=== PATIENT | female | born 1940 | race Caucasian/White ===

== ENCOUNTER 2018-01-28 17:44 | Emergency (ER) | payer MEDICARE, OTHER, SELFPAY ==
[2018-01-28 17:45] VITALS: BP 146/95; PULSE 64; RESP 16; TEMP 35.8; O2SAT 96; BMI 24.0
[2018-01-28 18:40] VITALS: BP 105/67; BP 142/73; BP 147/73; PULSE 52; PULSE 55; PULSE 66
[2018-01-28] MEDS: Carbamide Peroxide 15 ML Bottle 5 DRP OTIC (19:09)
[2018-01-28 19:14] LABS: Hematocrit 44.3 % (37-47); Hemoglobin 14.7 g/dl (12.0-15.0); Mean Corp Hgb Conc 33.2 g/gl (32-36); Mean Corpuscular Hgb 30.9 pg (27.0-32.0); Mean Corpuscular Volume 93.1 fL (81-99); Mean Platelet Vol. 11.8 fl (6.2-12.0); Platelet Count 198 K/mm3 (150-450); RBC Distribution Width CV 13.1 % (11.6-14.6); RBC Distribution Width SD 44.6 fl (35.1-43.9); Red Blood Count 4.76 M/mm3 (4.2-5.4); White Blood Count 7.8 K/mm3 (4.4-11.0)
[2018-01-28 19:15] LABS: Scan Indicated on CBC? Y/N NO
[2018-01-28 19:22] LABS: Anion Gap 4 (5-15); BUN 16 mg/dL (7-18); BUN/Creat Ratio 20.4 RATIO (10-20); Calcium,Total 10.8 mg/dL (8.5-10.1); Chloride 101 mmol/L (98-107); Creatinine, Serum 0.78 mg/dL (0.55-1.02); EST Glomerular Filtration Rate 75 mL/min (>60); Est Glom Filt Rate - Afr Amer 91 mL/min (>60); Estimated Creatinine Clearance 44.36 ml/min; Glucose 95 mg/dL (74-106); Potassium 4.2 mmol/L (3.5-5.1); Sodium Level 135 mmol/L (136-145)
[2018-01-28 19:38] VITALS: BP 153/79; PULSE 58; O2SAT 97
--- NOTE | 2018-01-28 20:47 | ED.DCSUM_ITS ---
- ER Visit Summary Date of Service: 01/28/18 Chief Complaint: Dizziness and decreased hearing History of Present Illness: The patient is a 72 F who presents with decreased hearing left greater than right and vertigo. She recently was admitted and had a significant workup including CAT scan MRI etc. which were all negative. She denies any double vision or blurred vision. She is status post cataract surgery bilateral. She denies runny nose, postnasal drainage, congestion, or ear pain. She denies sore throat or neck pain. She denies any cardiac respiratory symptoms. Does complain of nausea without vomiting diarrhea. She denies paresthesia, anesthesia medics. Denies trouble with gait. Her vertigo is not positional according the patient. Physical Examination: Vital signs remarkable blood pressure 147/73. Head is atraumatic normocephalic. Pupils are equal round and minimally reactive 30 to cataract surgery. Extraocular muscles are intact. TMs are not visualized secondary to cerumen impaction bilaterally. Nares patent with no drainage. Posterior pharynx without erythema or exudate. Uvula is midline. There is no dysphonia or dysphasia. Trachea is midline. There is no stridor with auscultation of the neck. Is no carotid bruit noted right or left. Heart is regular without murmur, gallop or rub. S1 and S2 are normal. Lungs are clear to auscultation with good movement of air bilaterally. Patient is alert and oriented ?3. Motor is 5 over 5. Sensory is intact. DTRs are symmetric with no clonus or Babinski sign. Cranial 2 through 12 are intact. Cerebellar testing is normal. Gabbi-Hallpike maneuver was negative. Hint test was negative. Eye askew test was negative. Test Results: None Emergency Department Course and Treatment: Debrox was instilled in right and left ear. Nurse attempted to irrigate without success. Cerumen was removed by me using cerumen spoon. Patient now states she can hear and when she sits up her vertigo has resolved. Treatment Plan: Symptomatic Disposition: Appropriate home-going instructions Impression: 1. Vertigo secondary to bilateral cerumen impaction 2. Decreased hearing secondary to bilateral cerumen impaction This note was generated with [employer] software. It may contain incorrect words, spelling, and punctuation that were not noted in review of the chart prior to signing ED Disposition - Plan for ED Patient: Disposition: Home or Assisted Living Chief Complaint: Dizziness Instructions: ED Cerumen Impaction, Home Care Referrals: Martine Chappell MD [Primary Care Provider] - As Needed
[2018-01-28 20:48] VITALS: BP 134/79; PULSE 55; RESP 16; O2SAT 95
== END 2018-01-28 20:55 | disposition home or self-care (01) ==
PROVIDERS: Emergency Provider Emergency Medicine; Family Provider Family Medicine; PCP Family Medicine
DX: R42 Dizziness and giddiness (principal); H61.23 Impacted cerumen, bilateral; R35.0 Frequency of micturition; R53.1 Weakness; J44.9 Chronic obstructive pulmonary disease, unspecified; E78.00 Pure hypercholesterolemia, unspecified; K58.9 Irritable bowel syndrome, unspecified; I48.0 Paroxysmal atrial fibrillation; Z87.891 Personal history of nicotine dependence; Z79.82 Long term (current) use of aspirin; Z79.899 Other long term (current) drug therapy
CPT/HCPCS: 80048; 85027; 96360; 96361; 99285; J7040; A4216

== ENCOUNTER → 2018-01-30 15:26 | Outpatient (CLI) | payer MEDICARE, OTHER, SELFPAY ==
[2018-01-30 18:35] LABS: T4 Total, Thyroxin 15.2 ug/dL (4.8-13.9); Thyroid Stim Hormone (TSH) 1.96 uIU/mL (0.358-3.74)
== END ==
PROVIDERS: Family Provider Family Medicine; PCP Family Medicine; Visit Provider Family Medicine
DX: E03.9 Hypothyroidism, unspecified (principal)
CPT/HCPCS: 36415; 84436; 84443

== ENCOUNTER 2018-06-03 04:09 | Observation (INO) | payer MEDICARE, OTHER, SELFPAY ==
[2018-06-03] VITALS (8 sets, daily range): BP systolic 119–164; BP diastolic 61–76; PULSE 52–86; RESP 16–18; TEMP 36.6–36.7; O2SAT 92–100; BMI 24.1
--- NOTE | 2018-06-03 04:09 | PCM.HP.STD ---
Problem List (1) Amaurosis fugax, right eye Status: Acute (2) TIA (transient ischemic attack) Status: Acute (3) Tachycardia-bradycardia syndrome Status: Chronic (4) Paroxysmal atrial fibrillation Status: Chronic (5) HLD (hyperlipidemia) Status: Chronic Qualifiers: Hyperlipidemia type: pure hypercholesterolemia Qualified Code(s): E78.00 - Pure hypercholesterolemia, unspecified; E78.0 - Pure hypercholesterolemia (6) HTN (hypertension) Status: Chronic Qualifiers: Hypertension type: essential hypertension Qualified Code(s): I10 - Essential (primary) hypertension History of Present Illness Date of Admission: 06/03/18 Chief Complaint: R Eye vision deficits The patient is a 77 y/o F w/ PMHx: HTN, HLD, Hypothyroidism, Tachycardic-Bradycardic Syndrome, PAF not on anticoagulation, IBS, Chronic COPD, Recent 12/2017 evaluation [facility] secondary to ongoing dizziness w/ unremarkable MRI/MRA, ECHO evaluation at that time who presents to the [facility] on 06/03/18 from OSH as direct admission/transfer with history of intermittent R lower field of vision loss, starting the morning prior and resolved upon OSH ED presentation with no other associated neurological symptoms. At the OSH ED work-up included VS: HR 59, BP 134/64, RR 18, 97% on RA, AF 36.7, CBC with WBC 8, Hgb 13.4, Plts 262 without shift, BMP w/ Na 132, BUN/Cr 21/0.85, glucose 106, SED rate 4, EKG with SR without acute evidence of ischemia, CT head with chronic changes. [facility] contacted [facility] Neurologist medical education manager and following their discussions he had requested CT head, CTA Head and Neck and follow-up MRI with administration eliquis or heparin therapy given history of PAF. The OSH ED did not have access to eliquis, therefore the patient was initiated on heparin therapy. Past Medical History Past Medical History (Chronic Problems): Chronic Problems (Last Reviewed 01/18/18 @ 10:30 by Js Noriega MD) Vasovagal syncope (Chronic) Tachycardia-bradycardia syndrome (Chronic) Paroxysmal atrial fibrillation (Chronic) HLD (hyperlipidemia) (Chronic) HTN (hypertension) (Chronic) Medical History: Medical History (Last Reviewed 01/18/18 @ 10:30 by Js Noriega MD) Vasovagal syncope (Chronic) R55 Tachycardia-bradycardia syndrome (Chronic) I49.5 Paroxysmal atrial fibrillation (Chronic) I48.0 HLD (hyperlipidemia) (Chronic) E78.5 HTN (hypertension) (Chronic) I10 COPD (chronic obstructive pulmonary disease) J44.9 IBS (irritable bowel syndrome) K58.9 Allergies ceftriaxone [From Rocephin] Adverse Reaction (Verified 01/28/18 17:47) Hives doxycycline [From Vibramycin] Adverse Reaction (Verified 01/28/18 17:47) Hives oxycodone [From OxyContin] Adverse Reaction (Verified 01/28/18 17:47) hallucinations Home Medications: Ambulatory Orders Medication Instructions Recorded alendronate 35 mg tablet 35 mg PO QWEEK 84 Days #12 tab 01/15/18 aspirin 81 mg tablet,delayed 81 mg PO QDAY 01/15/18 release calcium carbonate-vitamin D3 600 1 cap PO BID cap 01/15/18 mg calcium-200 unit capsule levothyroxine 50 mcg tablet 50 mcg PO QDAY 90 Days #90 tab 01/15/18 naproxen sodium 220 mg tablet 220 mg PO Q12H PRN 01/15/18 simvastatin 40 mg tablet 40 mg PO QDAY 90 Days #90 tab 01/15/18 sotalol 80 mg tablet 40 mg PO BID 90 Days #90 tab 01/15/18 hydrochlorothiazide 25 mg tablet 25 mg PO QDAY 90 Days #90 tab 01/18/18 polyethylene glycol 3350 17 gram 17 g PO QDAY 01/18/18 oral powder packet Albuterol Inhaler [Ventolin Hfa 2 puff INHALATION Q6H PRN PRN 06/03/18 (SP)] Surgical History: Surgical History (Last Reviewed 01/18/18 @ 10:30 by Js Noriega MD) History of appendectomy Z90.49 History of bilateral knee replacement Z96.653 History of hernia surgery Z98.890, Z87.19 Hx Sigmoidectomy Surgical History: - - Appendectomy, bilateral total knee replacement, L total hip replacement, sigmoidectomy, history of hernia surgery. 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 Smoking Status: Former smoker - Quit 5 years prior, prior to this 1 ppd since youth. Tobacco Use: Non-smoker Alcohol: None Drugs: None - *Family History Maternal Family History: Family History (Last Reviewed 01/18/18 @ 10:30 by Js Noriega MD) Mother pacemaker Daughter Arthritis Daughter CAD (coronary artery disease) Diabetes Hypertension Sister CVA (cerebral vascular accident) History Items: Dementia - Mother at age 91 w/ timers dementia, unclear onset timeline. Paternal Family History: Family History (Last Reviewed 01/18/18 @ 10:30 by Js Noriega MD) Mother pacemaker Daughter Arthritis Daughter CAD (coronary artery disease) Diabetes Hypertension Sister CVA (cerebral vascular accident) History Items: Unknown - Patient states she does not know her father's history. Review of Systems Constitutional: Reports: Fatigue. Denies: Chills, Fever, Weight Change HEENT: Reports: Visual Changes. Denies: Head Aches, Sinus Congestion, Sinus Drainage Cardiovascular: Reports: Light Headedness. Denies: Chest Pain, Chest Pressure, Chest Tightness, Orthopnea, Palpitations, Syncope Respiratory: Denies: Cough, Shortness of breath at rest, Sputum production Gastrointestinal: Denies: Abdominal Pain, Nausea, Vomiting Genitourinary: Denies: Dysuria Musculoskeletal: Denies: Joint Pain, Joint Tenderness Skin: Denies: Rash, Wounds Neurological: Reports: Blurred vision. Denies: Focal weakness, Numbness, Tingling Psychiatric: Denies: Anxiety, Depression, Homicidal Ideations, Suicidal Ideations Hematologic/ Lymphatic: Denies: Easy Bruising, Easy Bleeding VTE Information - Inpt Only VTE Present on Admission: No VTE Mechan Device Prophylaxis: SCD's VTE Pharm Prophylaxis ordered?: Yes Subjective: Seated upright in the bed, NAD, notes continued return to vision baseline. Objective: Physical Examination: General: awake, alert, oriented x 3 and cooperative, seated upright in the PCU bed in no apparent distress. Skin: normal color, turgor, no icterus, cyanosis. HEENT: AT/NC, EOMI, peripheral vision beatty intact, PERRLA, MMM, no carotid bruits or JVD noted. Lungs: CTA bilaterally, moderate effort, mild decrease BL bases, no rales, ronchi or wheezing. Heart: Regular rate and rhythm; no gallop, rub audible. Abdomen: soft, NTTP, ND, normal BS, no HSM. Extremities: no cyanosis, clubbing, or edema. Neurological: patient awake, alert, oriented x 3; cognitive function intact; pupils equally reactive to light and accomodation; cranial nerves II-XII grossly normal, moving all 4 extremities, no focal deficits, strength preserved, FTN, HTS intact, sensation intact, negative babinski, field of vision intact. Psychiatric: affect appears normal, no acute evidence of depressive or anxiety feelings. Assessment/Plan All Active Problems (Last Reviewed 01/18/18 @ 10:30 by Js Noriega MD) Amaurosis fugax, right eye (Acute) TIA (transient ischemic attack) (Acute) The patient is a 77 y/o F w/ PMHx: HTN, HLD, Hypothyroidism, Tachycardic-Bradycardic Syndrome, PAF not on anticoagulation, IBS, ? Chronic COPD, Recent 12/2017 evaluation [facility] secondary to ongoing dizziness w/ unremarkable MRI/MRA, ECHO evaluation at that time who presents to the [facility] on 06/03/18 from OSH as direct admission/transfer with history of intermittent R lower field of vision loss, resolved upon OSH ED presentation with no other associated neurological symptoms. (1) R Eye Lower Field of Vision loss, Transient, concerning for TIA/CVA: OSH ED work-up included VS: HR 59, BP 134/64, RR 18, 97% on RA, AF 36.7, CBC with WBC 8, Hgb 13.4, Plts 262 without shift, BMP w/ Na 132, BUN/Cr 21/0.85, glucose 106, SED rate 4, EKG with SR without acute evidence of ischemia, CT head with chronic changes. OSH contacted [facility] Neurologist medical education manager and following their discussions he had requested CT head, CTA Head and Neck and follow-up MRI with administration eliquis or heparin therapy given history of PAF. The OSH ED did not have access to eliquis, therefore the patient was initiated on heparin therapy. Will admit to PCU, will obtain MRI Brain, CTA Head and Neck per Neurology preference, ECHO, PT/OT/Speech/Nutrition evaluation per protocol. Will consult Neurology for evaluation. Given resolution of symptoms will continue her HTN regimen, will transition from heparin drip to eliquis, change to high dose statin w/ AM FLP, fall precautions. Mag pending. TSH pending. (2) PAF, Hx Tachycardic-Bradycardic Syndrome: Maintain on home regimen sotalol, statin, initiating eliquis regimen, discontinue heparin drip. (3) Chronic COPD w/ Former Tobacco use hx: ATC duonebs, PRN albuterol, HOB, IS parameters. (4) Hypertension: Continue home regimen including hydrochlorothiazide, PRN hydralazine. (5) Hyperlipidemia: Continue home statin regimen. AM FLP. (6) Hypothyroidism: Continue home synthroid regimen, TSH and FT4 pending. (7) DVT Prophylaxis: SCDs, heparin drip OSH-->transition to eliquis regimen. Code Visit OBSV E&M: 43842 Initial observation care L3
[2018-06-03] MEDS: 0.9% Normal Saline 1,000 ML 100 ML IV (05:11)
[2018-06-03] MEDS: 0.9% NaCl Peripheral Flush Adult/Peds IV (05:12)
[2018-06-03] MEDS: APIXABAN 5 MG TABLET PO (05:19)
[2018-06-03] MEDS: Levothyroxine 50 MCG Tablet PO (05:27)
[2018-06-03 06:10] LABS: Cholesterol 144 mg/dL (200); High Density Lipoprotein 65 mg/dL; Magnesium 1.8 mg/dL (1.6-2.6); Thyroid Stim Hormone (TSH) 1.57 uIU/mL (0.358-3.74); Triglycerides 55 mg/dL; Very Low Density Lipoprotein 11 mg/dL (5-40)
[2018-06-03 06:27] LABS: T4 Free Direct 1.35 ng/dL (0.76-1.46)
[2018-06-03] MEDS: Ipratropium/Albuterol Sulfate 3 ML AMPUL.NEB INHALATION ×2 (07:00→13:20)
[2018-06-03] MEDS: Sotalol Hydrochloride 80 MG Tablet 40 MG PO (09:15)
[2018-06-03] MEDS: Famotidine 20 MG Tablet PO (09:16)
[2018-06-03] MEDS: hydroCHLOROthiazide 25 MG Tablet PO (09:16)
[2018-06-03] MEDS: Polyethylene Glycol 3350 17 GM PACKET PO (09:16)
--- NOTE | 2018-06-03 11:22 | PCM.CONS.GEN ---
Reason for Consult Date of Consultation: 06/03/18 Reason for Consultation: vision changes History of Present Illness: The patient is a 77 year old right handed white female with history of afib, yesterday felt lightheaded/dizzy and had right eye only inferior field vision loss by description. now feels normal, eliquis started this am. Per admission H&P: The patient is a 77 y/o F w/ PMHx: HTN, HLD, Hypothyroidism, Tachycardic-Bradycardic Syndrome, PAF not on anticoagulation, IBS, Chronic COPD, Recent 12/2017 evaluation [facility] secondary to ongoing dizziness w/ unremarkable MRI/MRA, ECHO evaluation at that time who presents to the [facility] on 06/03/18 from OSH as direct admission/transfer with history of intermittent R lower field of vision loss, starting the morning prior and resolved upon OSH ED presentation with no other associated neurological symptoms. At the OSH ED work-up included VS: HR 59, BP 134/64, RR 18, 97% on RA, AF 36.7, CBC with WBC 8, Hgb 13.4, Plts 262 without shift, BMP w/ Na 132, BUN/Cr 21/0.85, glucose 106, SED rate 4, EKG with SR without acute evidence of ischemia, CT head with chronic changes. OSH contacted [facility] Neurologist cotton feeder and following their discussions he had requested CT head, CTA Head and Neck and follow-up MRI with administration eliquis or heparin therapy given history of PAF. The OSH ED did not have access to eliquis, therefore the patient was initiated on heparin therapy. Past Medical History Past Medical History (Chronic Problems): Chronic Problems (Last Reviewed 06/03/18 @ 11:23 by Deshaun Cantu MD) Vasovagal syncope (Chronic) Tachycardia-bradycardia syndrome (Chronic) Paroxysmal atrial fibrillation (Chronic) HLD (hyperlipidemia) (Chronic) HTN (hypertension) (Chronic) Medical History: Medical History (Last Reviewed 06/03/18 @ 11:55 by Deshaun Cantu MD) Vasovagal syncope (Chronic) R55 Tachycardia-bradycardia syndrome (Chronic) I49.5 Paroxysmal atrial fibrillation (Chronic) I48.0 HLD (hyperlipidemia) (Chronic) E78.5 HTN (hypertension) (Chronic) I10 COPD (chronic obstructive pulmonary disease) J44.9 IBS (irritable bowel syndrome) K58.9 Allergies ceftriaxone [From Rocephin] Adverse Reaction (Verified 01/28/18 17:47) Hives doxycycline [From Vibramycin] Adverse Reaction (Verified 01/28/18 17:47) Hives oxycodone [From OxyContin] Adverse Reaction (Verified 01/28/18 17:47) hallucinations Home Medications: Ambulatory Orders Medication Instructions Recorded alendronate 35 mg tablet 35 mg PO QWEEK 84 Days #12 tab 01/15/18 aspirin 81 mg tablet,delayed 81 mg PO QDAY 01/15/18 release calcium carbonate-vitamin D3 600 1 cap PO BID cap 01/15/18 mg calcium-200 unit capsule levothyroxine 50 mcg tablet 50 mcg PO QDAY 90 Days #90 tab 01/15/18 naproxen sodium 220 mg tablet 220 mg PO Q12H PRN 01/15/18 simvastatin 40 mg tablet 40 mg PO QDAY 90 Days #90 tab 01/15/18 sotalol 80 mg tablet 40 mg PO BID 90 Days #90 tab 01/15/18 hydrochlorothiazide 25 mg tablet 25 mg PO QDAY 90 Days #90 tab 01/18/18 polyethylene glycol 3350 17 gram 17 g PO QDAY 01/18/18 oral powder packet Albuterol Inhaler [Ventolin Hfa 2 puff INHALATION Q6H PRN PRN 06/03/18 (SP)] Surgical History: Surgical History (Last Reviewed 06/03/18 @ 11:55 by Deshaun Cantu MD) History of appendectomy Z90.49 History of bilateral knee replacement Z96.653 History of hernia surgery Z98.890, Z87.19 Hx Sigmoidectomy Surgical History: - - Appendectomy, bilateral total knee replacement, L total hip replacement, sigmoidectomy, history of hernia surgery. 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 Smoking Status: Former smoker Tobacco Use: Non-smoker Alcohol: None Drugs: None - *Family History Maternal Family History: Family History (Last Reviewed 01/18/18 @ 10:30 by Js Noriega MD) Mother pacemaker Daughter Arthritis Daughter CAD (coronary artery disease) Diabetes Hypertension Sister CVA (cerebral vascular accident) History Items: Dementia - Mother at age 91 w/ timers dementia, unclear onset timeline. Paternal Family History: Family History (Last Reviewed 01/18/18 @ 10:30 by Js Noriega MD) Mother pacemaker Daughter Arthritis Daughter CAD (coronary artery disease) Diabetes Hypertension Sister CVA (cerebral vascular accident) History Items: Unknown - Patient states she does not know her father's history. - Physical Exam General: Alert, Oriented x3, Cooperative HEENT: Atraumatic, PERRLA, EOMI, Normocephalic Neck: Supple, No JVD, Negative Carotid Bruits Lungs: Clear to auscultation, Normal air movement Cardiovascular: Regular rate, No murmurs Abdomen: Bowel Sounds Present, Soft, Non Tender Extremities: No edema, Capillary Refill Less than 3 Seconds Skin: No rashes, No breakdown Musculoskeletal: No Tenderness to Palpation of Joints or Extremities Neurological: Cranial nerves II-XII grossly intact Psych/Mental Status: Normal Affect, Appropriate Vital Signs Temp Pulse Resp BP Pulse Ox 36.7 C 59 L 16 119/61 93 06/03/18 08:20 06/03/18 11:00 06/03/18 08:20 06/03/18 08:20 06/03/18 08:20 Oxygen Delivery Method Room Air Weight: 69.9 kg Body Mass Index (BMI) 24.1 Intake and Output for Last 24 Hours 06/01/18 06/02/18 06/03/18 23:59 23:59 23:59 Intake Total 240 / 240 Balance 240 / 240 Laboratory Tests Past 24 Hrs 06/03/18 06/03/18 05:14 05:14 Magnesium 1.8 Triglycerides 55 Cholesterol 144 LDL Cholesterol 68 VLDL Cholesterol 11 HDL Cholesterol 65 TSH 1.57 Free T4 1.35 Current Medications Generic Name Dose Route Start Last Admin Trade Name Freq PRN Reason Stop Dose Admin Acetaminophen 650 mg 06/03/18 04:21 Tylenol PO Q4H PRN PRN Headache/Temp>99F Albuterol Sulfate 2.5 mg 06/03/18 04:27 Ventolin Aerosols INHALATION Q2H PRN PRN dyspnea, wheezing Albuterol/Ipratropium 3 ml 06/03/18 04:30 06/03/18 07:00 Duoneb INHALATION 3 ml Q6HWA.RT MAGDALENE Administration Apixaban 5 mg 06/03/18 04:27 06/03/18 09:14 Eliquis PO Not Given BID MAGDALENE Atorvastatin Calcium 80 mg 06/03/18 22:00 Lipitor PO QHS MAGDALENE Hydrochlorothiazide 25 mg 06/03/18 10:00 06/03/18 09:16 Hctz PO 25 mg DAILY MAGDALENE Administration Levothyroxine Sodium 50 mcg 06/03/18 06:00 06/03/18 05:27 Synthroid PO 50 mcg DAILY@0600 MAGDALENE Administration Magnesium Hydroxide 30 ml 06/03/18 04:21 Milk Of Magnesia PO DAILY PRN Constipation Ondansetron HCl 4 mg 06/03/18 04:21 Zofran IV Q8H PRN PRN NAUSEA Polyethylene Glycol 17 gm 06/03/18 10:00 06/03/18 09:16 Miralax PO 17 gm DAILY MAGDALENE Administration Sodium Chloride 5 - 30 ml 06/03/18 04:36 06/03/18 05:12 IV 10 ml UD PRN Administration SALINE FLUSH Sotalol HCl 40 mg 06/03/18 10:00 06/03/18 09:15 Betapace (G) PO 40 mg BID MAGDALENE Administration CTA of the head and neck is reviewed and appears to be normal Assessment/Plan All Active Problems (Last Reviewed 06/03/18 @ 11:23 by Deshaun Cantu MD) Amaurosis fugax, right eye (Acute) TIA (transient ischemic attack) (Acute) Impression: Vision changes: likely tia due to afib, now normal. agree with marilu, no benefit to mri, will cancel and dc home.
--- NOTE | 2018-06-03 11:26 | CON.PCM_ITS ---
Reason for Consult Date of Consultation: 06/03/18 Reason for Consultation: vision changes History of Present Illness: The patient is a 77 year old right handed white female with history of afib, yesterday felt lightheaded/dizzy and had right eye only inferior field vision loss by description. now feels normal, eliquis started this am. Per admission H&P: The patient is a 77 y/o F w/ PMHx: HTN, HLD, Hypothyroidism , Tachycardic-Bradycardic Syndrome, PAF not on anticoagulation, IBS, Chronic COPD, Recent 12/2017 evaluation [facility] secondary to ongoing dizziness w/ unremarkable MRI/MRA, ECHO evaluation at that time who presents to the [facility] on 06/03/18 from OSH as direct admission/transfer with history of intermittent R lower field of vision loss, starting the morning prior and resolved upon OSH ED presentation with no other associated neurological symptoms. At the OSH ED work- up included VS: HR 59, BP 134/64, RR 18, 97% on RA, AF 36.7, CBC with WBC 8, Hgb 13.4, Plts 262 without shift, BMP w/ Na 132, BUN/Cr 21/0.85, glucose 106, SED rate 4, EKG with SR without acute evidence of ischemia, CT head with chronic changes. 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 The OSH ED did not have access to eliquis, therefore the patient was initiated on heparin therapy. Past Medical History Past Medical History (Chronic Problems): Chronic Problems (Last Reviewed 06/03/18 @ 11:23 by Deshaun Cantu MD) Vasovagal syncope (Chronic) Tachycardia-bradycardia syndrome (Chronic) Paroxysmal atrial fibrillation (Chronic) HLD (hyperlipidemia) (Chronic) HTN (hypertension) (Chronic) Medical History: Medical History (Last Reviewed 06/03/18 @ 11:55 by Deshaun Cantu MD) Vasovagal syncope (Chronic) R55 Tachycardia-bradycardia syndrome (Chronic) I49.5 Paroxysmal atrial fibrillation (Chronic) I48.0 HLD (hyperlipidemia) (Chronic) E78.5 HTN (hypertension) (Chronic) I10 COPD (chronic obstructive pulmonary disease) J44.9 IBS (irritable bowel syndrome) K58.9 Allergies ceftriaxone [From Rocephin] Adverse Reaction (Verified 01/28/18 17:47) Hives doxycycline [From Vibramycin] Adverse Reaction (Verified 01/28/18 17:47) Hives oxycodone [From OxyContin] Adverse Reaction (Verified 01/28/18 17:47) hallucinations Home Medications: Ambulatory Orders Medication Instructions Recorded alendronate 35 mg tablet 35 mg PO QWEEK 84 Days #12 tab 01/15/18 aspirin 81 mg tablet,delayed 81 mg PO QDAY 01/15/18 release calcium carbonate-vitamin D3 600 1 cap PO BID cap 01/15/18 mg calcium-200 unit capsule levothyroxine 50 mcg tablet 50 mcg PO QDAY 90 Days #90 tab 01/15/18 naproxen sodium 220 mg tablet 220 mg PO Q12H PRN 01/15/18 simvastatin 40 mg tablet 40 mg PO QDAY 90 Days #90 tab 01/15/18 sotalol 80 mg tablet 40 mg PO BID 90 Days #90 tab 01/15/18 hydrochlorothiazide 25 mg tablet 25 mg PO QDAY 90 Days #90 tab 01/18/18 polyethylene glycol 3350 17 gram 17 g PO QDAY 01/18/18 oral powder packet Albuterol Inhaler [Ventolin Hfa 2 puff INHALATION Q6H PRN PRN 06/03/18 (SP)] Surgical History: Surgical History (Last Reviewed 06/03/18 @ 11:55 by Deshaun Cantu MD) History of appendectomy Z90.49 History of bilateral knee replacement Z96.653 History of hernia surgery Z98.890, Z87.19 Hx Sigmoidectomy Surgical History: - - Appendectomy, bilateral total knee replacement, L total hip replacement, sigmoidectomy, history of hernia surgery. 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 Smoking Status: Former smoker Tobacco Use: Non-smoker Alcohol: None Drugs: None - *Family History Maternal Family History: Family History (Last Reviewed 01/18/18 @ 10:30 by Js Noriega MD) Mother pacemaker Daughter Arthritis Daughter CAD (coronary artery disease) Diabetes Hypertension Sister CVA (cerebral vascular accident) History Items: Dementia - Mother at age 91 w/ timers dementia, unclear onset timeline. Paternal Family History: Family History (Last Reviewed 01/18/18 @ 10:30 by Js Noriega MD) Mother pacemaker Daughter Arthritis Daughter CAD (coronary artery disease) Diabetes Hypertension Sister CVA (cerebral vascular accident) History Items: Unknown - Patient states she does not know her father's history. - Physical Exam General: Alert, Oriented x3, Cooperative HEENT: Atraumatic, PERRLA, EOMI, Normocephalic Neck: Supple, No JVD, Negative Carotid Bruits Lungs: Clear to auscultation, Normal air movement Cardiovascular: Regular rate, No murmurs Abdomen: Bowel Sounds Present, Soft, Non Tender Extremities: No edema, Capillary Refill Less than 3 Seconds Skin: No rashes, No breakdown Musculoskeletal: No Tenderness to Palpation of Joints or Extremities Neurological: Cranial nerves II-XII grossly intact Psych/Mental Status: Normal Affect, Appropriate Vital Signs Temp Pulse Resp BP Pulse Ox 36.7 C 59 L 16 119/61 93 06/03/18 08:20 06/03/18 11:00 06/03/18 08:20 06/03/18 08:20 06/03/18 08:20 Oxygen Delivery Method Room Air Weight: 69.9 kg Body Mass Index (BMI) 24.1 Intake and Output for Last 24 Hours 06/01/18 06/02/18 06/03/18 23:59 23:59 23:59 Intake Total 240 / 240 Balance 240 / 240 Laboratory Tests Past 24 Hrs 06/03/18 06/03/18 05:14 05:14 Magnesium 1.8 Triglycerides 55 Cholesterol 144 LDL Cholesterol 68 VLDL Cholesterol 11 HDL Cholesterol 65 TSH 1.57 Free T4 1.35 Current Medications Generic Name Dose Route Start Last Admin Trade Name Freq PRN Reason Stop Dose Admin Acetaminophen 650 mg 06/03/18 04:21 Tylenol PO Q4H PRN PRN Headache/Temp>99F Albuterol Sulfate 2.5 mg 06/03/18 04:27 Ventolin Aerosols INHALATION Q2H PRN PRN dyspnea, wheezing Albuterol/Ipratropium 3 ml 06/03/18 04:30 06/03/18 07:00 Duoneb INHALATION 3 ml Q6HWA.RT MAGDALENE Administration Apixaban 5 mg 06/03/18 04:27 06/03/18 09:14 Eliquis PO Not Given BID MAGDALENE Atorvastatin Calcium 80 mg 06/03/18 22:00 Lipitor PO QHS MAGDALENE Hydrochlorothiazide 25 mg 06/03/18 10:00 06/03/18 09:16 Hctz PO 25 mg DAILY MAGDALENE Administration Levothyroxine Sodium 50 mcg 06/03/18 06:00 06/03/18 05:27 Synthroid PO 50 mcg DAILY@0600 MAGDALENE Administration Magnesium Hydroxide 30 ml 06/03/18 04:21 Milk Of Magnesia PO DAILY PRN Constipation Ondansetron HCl 4 mg 06/03/18 04:21 Zofran IV Q8H PRN PRN NAUSEA Polyethylene Glycol 17 gm 06/03/18 10:00 06/03/18 09:16 Miralax PO 17 gm DAILY MAGDALENE Administration Sodium Chloride 5 - 30 ml 06/03/18 04:36 06/03/18 05:12 IV 10 ml UD PRN Administration SALINE FLUSH Sotalol HCl 40 mg 06/03/18 10:00 06/03/18 09:15 Betapace (G) PO 40 mg BID MAGDALENE Administration CTA of the head and neck is reviewed and appears to be normal Assessment/Plan All Active Problems (Last Reviewed 06/03/18 @ 11:23 by Deshaun Cantu MD) Amaurosis fugax, right eye (Acute) TIA (transient ischemic attack) (Acute) Impression: Vision changes: likely tia due to afib, now normal. agree with marilu, no benefit to mri, will cancel and dc home.
--- NOTE | 2018-06-03 15:01 | PCM.DC ---
- Discharge Diagnoses Reason(s) for Visit for Discharge Instructions: TIA You will use the following diet at home:: No restrictions, Regular Your food should be the consistency of: Regular Discharge Activity: Return to Normal Activity, No Restrictions, May Drive Allergies/Adverse Reactions: Allergies ceftriaxone [From Rocephin] Adverse Reaction (Verified 01/28/18 17:47) Hives doxycycline [From Vibramycin] Adverse Reaction (Verified 01/28/18 17:47) Hives oxycodone [From OxyContin] Adverse Reaction (Verified 01/28/18 17:47) hallucinations Medications to take at Discharge alendronate 35 mg tablet 35 mg PO QWEEK 84 Days #12 tab 01/15/18 calcium carbonate-vitamin D3 600 mg calcium-200 unit capsule 1 cap PO BID cap 01/15/18 levothyroxine 50 mcg tablet 50 mcg PO QDAY 90 Days #90 tab 01/15/18 simvastatin 40 mg tablet 40 mg PO QDAY 90 Days #90 tab 01/15/18 sotalol 80 mg tablet 40 mg PO BID 90 Days #90 tab 01/15/18 hydrochlorothiazide 25 mg tablet 25 mg PO QDAY 90 Days #90 tab 01/18/18 polyethylene glycol 3350 17 gram oral powder packet 17 g PO QDAY 01/18/18 Albuterol Inhaler [Ventolin Hfa] 2 puff INHALATION Q6H PRN PRN 06/03/18 Apixaban [Eliquis] 5 mg PO BID #60 tab 06/03/18 The following prescriptions were given: Apixaban [Eliquis] 5 mg PO BID #60 tab Primary Care Physician: Martine Chappell MD [Primary Care Provider] - Please follow up with your Primary Care Physician in: 1-2 weeks Test Results: Test results from this visit will be discussed in further detail at your follow-up appointment, if applicable. Proposed Discharge Date: 06/03/18
--- NOTE | 2018-06-03 15:03 | PCM.DC.SUM ---
Discharge Date and Diagnosis Date of Admission: 06/03/18 Date of Discharge: 06/03/18 - Primary Discharge Diagnosis Transient Ischemic Attack - Secondary Discharge Diagnosis Chronic Problems (Last Reviewed 06/03/18 @ 11:55 by Deshaun Cantu MD) Vasovagal syncope (Chronic) Tachycardia-bradycardia syndrome (Chronic) Paroxysmal atrial fibrillation (Chronic) HLD (hyperlipidemia) (Chronic) HTN (hypertension) (Chronic) Hospital Course and Treatment Operations: None Procedures: None Summary of Care Provided: The patient is a 77 year old F who presented to the hospital with sudden episode of transient vision loss in the right lower visual field of her right eye. Uncertain if this was Amaurosis Fugax or a right sided homonymous quadrantanopia. Nonetheless both presentations quite suggestive of a TIA and patient does indeed have risk factors. CTA of the head and neck were done and essentially normal. MRI initially ordered but then canceled by neurology. Patient has a h/o paroxysmal atrial fibrillation and is s/p radio-ablation and is on anti-arrhythmic therapy with Sotalol for rhythm control. It was suspected/presumed that TIA may be related to a cardiac source from this and so patient started on Eliquis and will continue on this going home. Patient is doing well today and is completely asymptomatic. [] Discharge Diet: No Restrictions Discharge Activity: Return to Normal Activity, No Restrictions, May Drive Home Medications: Medications to take at Discharge alendronate 35 mg tablet 35 mg PO QWEEK 84 Days #12 tab 01/15/18 calcium carbonate-vitamin D3 600 mg calcium-200 unit capsule 1 cap PO BID cap 01/15/18 levothyroxine 50 mcg tablet 50 mcg PO QDAY 90 Days #90 tab 01/15/18 simvastatin 40 mg tablet 40 mg PO QDAY 90 Days #90 tab 01/15/18 sotalol 80 mg tablet 40 mg PO BID 90 Days #90 tab 01/15/18 hydrochlorothiazide 25 mg tablet 25 mg PO QDAY 90 Days #90 tab 01/18/18 polyethylene glycol 3350 17 gram oral powder packet 17 g PO QDAY 01/18/18 Albuterol Inhaler [Ventolin Hfa] 2 puff INHALATION Q6H PRN PRN 06/03/18 Apixaban [Eliquis] 5 mg PO BID #60 tab 06/03/18 Following Prescrptions Were Given to Patient: Apixaban [Eliquis] 5 mg PO BID #60 tab Primary Care Physician: Martine Chappell MD [Primary Care Provider] - Please follow up with your Primary Care Physician in: 1-2 weeks Disposition: Home Minutes spent on discharge:: 30 Patient Condition:: Good Medical Necessity - Tobacco Use Smoking Status: Former smoker Tobacco Use: Non-smoker Meaningful Use Info Meaningful Use Diagnoses (Choose all that apply): None applicable - CVA Therapy Assessed for PT,OT and/or ST?: Yes - Ischemic Stroke Antithrombotic order at d/c?: Yes Dx of Atrial fib/flutter?: Yes Anticoagulant at discharge?: Yes Statins at discharge?: Yes Primary Dx Acute Ischemic CVA?: No IV tPA ordered during stay?: No Reason IV t-PA not ordered: Procedure not Indicated Code Visit OBSV E&M: 66966 Observation care discharge
== END 2018-06-03 15:02 | disposition home or self-care (01) ==
PROVIDERS: Admitting Provider Family Medicine; Family Provider Family Medicine; PCP Family Medicine; Visit Provider Internal Medicine
DX: G45.9 Transient cerebral ischemic attack, unspecified (principal); E78.5 Hyperlipidemia, unspecified; I10 Essential (primary) hypertension; I48.0 Paroxysmal atrial fibrillation; Z79.899 Other long term (current) drug therapy; Z79.82 Long term (current) use of aspirin; Z87.891 Personal history of nicotine dependence; E03.9 Hypothyroidism, unspecified; K58.9 Irritable bowel syndrome, unspecified; J44.9 Chronic obstructive pulmonary disease, unspecified; H54.61 Unqualified visual loss, right eye, normal vision left eye
CPT/HCPCS: 36415; 70496; 70498; 80061; 83735; 84439; 84443; 94640; 96360; 96361; 97161; 97166; 97802; 99218; J7030; Q9967; A4216; G0378; G0379

== ENCOUNTER 2018-07-05 19:51 | Observation (INO) | payer MEDICARE, OTHER, SELFPAY ==
[2018-07-05 19:57] VITALS: BMI 24.2
[2018-07-05 20:01] VITALS: BP 147/80; PULSE 61; RESP 16; TEMP 36.9; O2SAT 93
[2018-07-05 20:03] VITALS: BMI 24.3
[2018-07-05 20:16] VITALS: PULSE 65
--- NOTE | 2018-07-05 20:30 | HP.PCM_ITS ---
Problem List (1) Vertigo Status: Acute (2) Gastroenteritis Status: Acute (3) Paroxysmal atrial fibrillation Status: Chronic (4) HTN (hypertension) Status: Chronic Qualifiers: Hypertension type: essential hypertension Qualified Code(s): I10 - Essential (primary) hypertension History of Present Illness Date of Admission: 07/05/18 Chief Complaint: vertigo and lightheadness The patient is a 77 year old F with a significant history of HTN, HLD, Hypothyroidism, Tachycardic-Bradycardic Syndrome, PAF on sotalol and Eliquis, IBS, COPD; Vertigo who presents with progressively worsening vertigo x 1 day. Patient reported that earlier in the day she felt lightheaded. As the day progressed patient began to have severe vertigo, nausea, vomiting and diarrhea. At emergency department at [facility] he was found to be vomiting. Because symptoms was progressively worsened she went to [place] emergency department and was admitted at our hospital. Patient thinks that when she turns her head her vertigo increases. She denied any hearing loss. At emergency department at [place] patient received Zofran and meclizine. Patient was last admitted and discharged at the hospital on 06/03/2018 for TIA and was subsequently started on Eliquis. Past Medical History Past Medical History (Chronic Problems): Chronic Problems (Last Reviewed 07/06/18 @ 02:29 by Antonino Pabon MD) Vasovagal syncope (Chronic) Tachycardia-bradycardia syndrome (Chronic) Paroxysmal atrial fibrillation (Chronic) HLD (hyperlipidemia) (Chronic) HTN (hypertension) (Chronic) Medical History: Medical History (Last Reviewed 07/06/18 @ 02:38 by Antonino Pabon MD) Vasovagal syncope (Chronic) R55 Tachycardia-bradycardia syndrome (Chronic) I49.5 Paroxysmal atrial fibrillation (Chronic) I48.0 HLD (hyperlipidemia) (Chronic) E78.5 HTN (hypertension) (Chronic) I10 COPD (chronic obstructive pulmonary disease) J44.9 IBS (irritable bowel syndrome) K58.9 Allergies ceftriaxone [From Rocephin] Adverse Reaction (Verified 01/28/18 17:47) Hives doxycycline [From Vibramycin] Adverse Reaction (Verified 01/28/18 17:47) Hives oxycodone [From OxyContin] Adverse Reaction (Verified 01/28/18 17:47) hallucinations Home Medications: Ambulatory Orders Medication Instructions Recorded alendronate 35 mg tablet 35 mg PO SA 84 Days #12 tab 01/15/18 calcium carbonate-vitamin D3 600 1 cap PO BID cap 01/15/18 mg calcium-200 unit capsule levothyroxine 50 mcg tablet 50 mcg PO QDAY 90 Days #90 tab 01/15/18 simvastatin 40 mg tablet 40 mg PO QDAY 90 Days #90 tab 01/15/18 hydrochlorothiazide 25 mg tablet 25 mg PO QDAY 90 Days #90 tab 01/18/18 polyethylene glycol 3350 17 gram 17 g PO QDAY 01/18/18 oral powder packet Albuterol Inhaler [Ventolin Hfa] 2 puff INHALATION Q6H PRN PRN 06/03/18 Acetaminophen [Tylenol Extra 1,000 mg PO Q8H PRN PRN 07/05/18 Strength] Apixaban [Eliquis] 5 mg PO BID 07/05/18 Sotalol Hydrochloride [Betapace 40 mg PO BID 07/05/18 (Beta Alyssia)] Surgical History: Surgical History (Last Reviewed 07/06/18 @ 02:38 by Antonino Pabon MD) History of appendectomy Z90.49 History of bilateral knee replacement Z96.653 History of hernia surgery Z98.890, Z87.19 Hx Sigmoidectomy Surgical History: - - Appendectomy, bilateral total knee replacement, L total hip replacement, sigmoidectomy, history of hernia surgery. 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 Paternal Family History: Family History (Last Reviewed 07/06/18 @ 02:29 by Antonino Pabon MD) Mother pacemaker Daughter Arthritis Daughter CAD (coronary artery disease) Diabetes Hypertension Sister CVA (cerebral vascular accident) History Items: Unknown - Patient states she does not know her father's history. Review of Systems Constitutional: Denies: Chills, Fever, Weight Change HEENT: Denies: Head Aches, Sinus Congestion, Sinus Drainage Cardiovascular: Reports: Light Headedness. Denies: Chest Pain, Palpitations Respiratory: Denies: Cough, Shortness of breath at rest, Sputum production Gastrointestinal: Reports: Diarrhea, Nausea, Vomiting. Denies: Abdominal Pain Genitourinary: Denies: Dysuria Musculoskeletal: Denies: Joint Pain, Joint Tenderness Skin: Denies: Rash, Wounds Neurological: Denies: Numbness, Tingling, Focal weakness Psychiatric: Denies: Anxiety, Depression, Homicidal Ideations, Suicidal Ideations Hematologic/ Lymphatic: Denies: Easy Bruising, Easy Bleeding VTE Information - Inpt Only VTE Present on Admission: No VTE Mechan Device Prophylaxis: None VTE Pharm Prophylaxis ordered?: No Reason prophylaxis not ordered:: Treatment Not Indicated - Patient already on Eliquis for A. fib which was continued. Patient Problems: Active and Suspected Problems (Last Reviewed 07/06/18 @ 02:29 by Antonino Pabon MD) Vertigo (Acute) Gastroenteritis (Acute) - Physical Exam General: Alert, Oriented x3, Cooperative HEENT: Atraumatic, PERRLA, EOMI, Normocephalic Neck: Supple, No JVD, Negative Carotid Bruits Lungs: Clear to auscultation, Normal air movement Cardiovascular: Regular rate, No murmurs Abdomen: Bowel Sounds Present, Soft, Non Tender Extremities: No edema, Capillary Refill Less than 3 Seconds Skin: No rashes, No breakdown Musculoskeletal: No Tenderness to Palpation of Joints or Extremities Neurological: Cranial nerves II-XII grossly intact, - - Sunset-Hallpike maneuver did not show nystagmus but patient reported spinning sensation. Psych/Mental Status: Normal Affect, Appropriate Vital Signs Temp Pulse Resp BP Pulse Ox 98.4 F 61 16 147/80 H 93 07/05/18 20:01 07/05/18 20:01 07/05/18 20:01 07/05/18 20:01 07/05/18 20:01 Oxygen Delivery Method Room Air Weight: 71.3 kg Body Mass Index (BMI) 24.2 Assessment/Plan All Active Problems (Last Reviewed 07/06/18 @ 02:29 by Antonino Pabon MD) Amaurosis fugax, right eye (Acute) TIA (transient ischemic attack) (Acute) Vertigo (Acute) Gastroenteritis (Acute) The patient is a 77 year old F with a significant history of HTN, HLD, Hypothyroidism, Tachycardic-Bradycardic Syndrome, PAF on sotalol and Eliquis, IBS, COPD; Vertigo who presents with progressively worsening vertigo; nausea, vomiting; diarrhea; lightheadedness X 1 day. Vertigo Review of old records shows that on 01/28/18 of this year patient was seen at the emergency department for Vertigo. 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 Also review of old records showed that in December 2017 patient had evaluation at [facility] for ongoing dizziness with unremarkable MRI/MRA and echocardiogram. Review of records from [facility] on the day of evaluation showed Review of records from [place] ED on the day of admission showed no evidence of acute intracranial process per CT imaging. NIH at [facility] was 0. [facility] reportedly patient had some nystagmus and extraocular movements. Differential diagnosis include BPPV; vestibular neuritis Scheduled meclizine and as needed Valium ordered. Stefan maneuver and vestibular exercises per PT. Since patient had ongoing vertigo upon discharge recommend patient's sees a PCP for possible referral to ENT. Gastroenteritis Nausea, vomiting and diarrhea. This could be causing vestibular neuritis. Likely viral in etiology. C. difficile ordered. Supportive treatment with IV normal saline, and as needed Zofran. Hyperlipidemia Lipitor continued Hypertension Fairly controlled on admission Hydrochlorothiazide continued. A. fib with history of TIA Sotalol and Eliquis continued. COPD As needed albuterol continued. Hypothyroidism Synthroid continued Osteoarthritis Reports arthritis of her neck. Home Tylenol continued. Hypokalemia Mild Potassium replaced. DVT prophylaxis Not indicated patient already on Eliquis. Code Visit OBSV E&M: 82439 Initial observation care L3
[2018-07-05 21:59] LABS: Hematocrit 39.5 % (37-47); Hemoglobin 13.5 g/dl (12.0-15.0); Mean Corp Hgb Conc 34.2 g/gl (32-36); Mean Corpuscular Hgb 32.1 pg (27.0-32.0); Mean Platelet Vol. 9.9 fl (6.2-12.0); Platelet Count 225 K/mm3 (150-450); RBC Distribution Width CV 13.2 % (11.6-14.6); RBC Distribution Width SD 45.3 fl (35.1-43.9); Scan Indicated on CBC? Y/N NO; White Blood Count 9.9 K/mm3 (4.4-11.0)
[2018-07-05 22:14] LABS: ALB/GLOB Ratio 1.2 RATIO (0.9-2.4); AST(SGOT) 22 U/L (15-37); Alanine Aminotransfer ALT/SGPT 27 U/L (13-56); Albumin, Serum 3.5 g/dL (3.2-5.0); Alkaline Phosphatase 47 U/L (45-117); Anion Gap 8 (5-15); BUN 9 mg/dL (7-18); BUN/Creat Ratio 16.3 RATIO (10-20); Calcium,Total 9.7 mg/dL (8.5-10.1); Chloride 101 mmol/L (98-107); Creatinine, Serum 0.55 mg/dL (0.55-1.02); EST Glomerular Filtration Rate 113 mL/min (>60); Est Glom Filt Rate - Afr Amer 136 mL/min (>60); Estimated Creatinine Clearance 44.36 ml/min; Globulin 2.8 g/dL (2.2-4.2); Glucose 110 mg/dL (74-106); Potassium 3.4 mmol/L (3.5-5.1); Protein, Total 6.3 g/dL (6.4-8.2); Sodium Level 136 mmol/L (136-145)
[2018-07-05] MEDS: 0.9% Normal Saline 1,000 ML 100 ML IV (22:39)
[2018-07-05] MEDS: Acetaminophen 500 MG Tablet 1000 MG PO (22:39)
[2018-07-05] MEDS: 0.9% NaCl Peripheral Flush Adult/Peds IV (22:39)
[2018-07-05] MEDS: Atorvastatin Calcium 20 MG Tablet PO (22:39)
[2018-07-05] MEDS: Sotalol Hydrochloride 80 MG Tablet 40 MG PO (22:39)
[2018-07-05] MEDS: APIXABAN 5 MG TABLET PO (22:40)
[2018-07-05] MEDS: Meclizine 12.5 MG Tablet PO (22:40)
[2018-07-05] MEDS: Mag Hydrox/Al Hydrox/Simeth 30 ML UDC 15 ML PO (22:51)
[2018-07-05 22:52] VITALS: BP 106/61; PULSE 78; RESP 16; TEMP 36.6; O2SAT 96
[2018-07-05 23:05] VITALS: PULSE 96
[2018-07-05 23:42] VITALS: O2SAT 96
[2018-07-06] VITALS (7 sets, daily range): BP systolic 116–134; BP diastolic 65–68; PULSE 61–80; RESP 15–16; TEMP 36.1–36.7; O2SAT 94–97
[2018-07-06] MEDS: Levothyroxine 50 MCG Tablet PO (05:38)
[2018-07-06] MEDS: Meclizine 12.5 MG Tablet PO (05:38)
[2018-07-06 06:20] LABS: Anion Gap 7 (5-15); BUN 12 mg/dL (7-18); BUN/Creat Ratio 18.3 RATIO (10-20); Calcium,Total 9.9 mg/dL (8.5-10.1); Chloride 104 mmol/L (98-107); Creatinine, Serum 0.66 mg/dL (0.55-1.02); EST Glomerular Filtration Rate 92 mL/min (>60); Est Glom Filt Rate - Afr Amer 112 mL/min (>60); Estimated Creatinine Clearance 44.36 ml/min; Glucose 81 mg/dL (74-106); Potassium 4.1 mmol/L (3.5-5.1); Sodium Level 139 mmol/L (136-145)
[2018-07-06] MEDS: Calcium Carb/Vitamin D 1 TABLET Tablet PO (10:16)
[2018-07-06] MEDS: hydroCHLOROthiazide 25 MG Tablet PO (10:16)
[2018-07-06] MEDS: Sotalol Hydrochloride 80 MG Tablet 40 MG PO (10:16)
[2018-07-06] MEDS: APIXABAN 5 MG TABLET PO (10:16)
--- NOTE | 2018-07-06 11:39 | CASEMGMT ---
Per Rayshawn JAMES, pt to be sent home on vestibular outpt therapy. Pt lives in [place] and would prefer to go to [facility] for this. Call to [place] to verify that they provide outpt vestibular therapy and per Breann, they do but they will not be able to see pt till the week after next. Rayshawn JAMES aware and states that he would prefer pt be seen prior to that but that ultimately, it's up to pt. Pt is aware of recommendation but states that she would prefer to go to [place] instead of [facility] at this time because '[place] is only 2 minutes from my house'. Order faxed to [place] at this time [phone] and original to pt with discharge instructions. Pt voices no further concerns/needs at this time. Awaiting disposition. Sacha PELLETIER CM
--- NOTE | 2018-07-06 11:54 | DCINST_ITS ---
- Discharge Diagnoses Current Active Problems: Current Active and Chronic Problems (Last Reviewed 07/06/18 @ 02:38 by Antonino Pabon MD) Vertigo (Acute) Gastroenteritis (Acute) You will use the following diet at home:: Cardiac, Other - BRAT diet, advance slowly to cardiac diet. Your food should be the consistency of: Regular Your liquids should be the consistency of: Regular/Thin Discharge Activity: Return to Normal Activity Allergies/Adverse Reactions: Allergies ceftriaxone [From Rocephin] Adverse Reaction (Verified 01/28/18 17:47) Hives doxycycline [From Vibramycin] Adverse Reaction (Verified 01/28/18 17:47) Hives oxycodone [From OxyContin] Adverse Reaction (Verified 01/28/18 17:47) hallucinations Medications to take at Discharge alendronate 35 mg tablet 35 mg PO SA 84 Days #12 tab 01/15/18 calcium carbonate-vitamin D3 600 mg calcium-200 unit capsule 1 cap PO BID cap 01/15/18 levothyroxine 50 mcg tablet 50 mcg PO QDAY 90 Days #90 tab 01/15/18 simvastatin 40 mg tablet 40 mg PO QDAY 90 Days #90 tab 01/15/18 hydrochlorothiazide 25 mg tablet 25 mg PO QDAY 90 Days #90 tab 01/18/18 polyethylene glycol 3350 17 gram oral powder packet 17 g PO QDAY 01/18/18 Albuterol Inhaler [Ventolin Hfa] 2 puff INHALATION Q6H PRN PRN 06/03/18 Acetaminophen [Tylenol] 1,000 mg PO Q8H PRN PRN 07/05/18 Apixaban [Eliquis] 5 mg PO BID 07/05/18 Sotalol Hydrochloride [Betapace (Beta Alyssia)] 40 mg PO BID 07/05/18 Meclizine HCl [Antivert] 12.5 mg PO TID #21 tab 07/06/18 The following prescriptions were given: Meclizine HCl [Antivert] 12.5 mg PO TID #21 tab Primary Care Physician: Martine Chappell MD [Primary Care Provider] - Please follow up with your Primary Care Physician in: 1-2 weeks Test Results: Test results from this visit will be discussed in further detail at your follow- up appointment, if applicable. Proposed Discharge Date: 07/06/18
--- NOTE | 2018-07-06 13:55 | DS.PCM_ITS ---
<Tao Alaniz - Last Filed: 07/06/18 13:51> Discharge Date and Diagnosis Date of Admission: 07/05/18 Date of Discharge: 07/06/18 - Primary Discharge Diagnosis Active and Suspected Problems (Last Reviewed 07/06/18 @ 02:38 by Antonino Pabon MD) Vertigo (Acute) secondary to dehydration secondary to acute viral gastroenteritis Hypokalemia secondary to vomiting and diarrhea History of TIA Paroxysmal atrial fibrillation Hypertension History of tachybradycardia syndrome Hyperlipidemia - Secondary Discharge Diagnosis Chronic Problems (Last Reviewed 07/06/18 @ 02:38 by Antonino Pabon MD) Vasovagal syncope (Chronic) Tachycardia-bradycardia syndrome (Chronic) Paroxysmal atrial fibrillation (Chronic) HLD (hyperlipidemia) (Chronic) HTN (hypertension) (Chronic) Hospital Course and Treatment Operations: None Procedures: None Summary of Care Provided: Physical exam on day of discharge: General: Resting comfortably NAD Psych: A/Ox3 normal affect HEENT: PEARR[place] AT NC, negative [place]-Hallpike maneuver Neck: Supple NT CV: RRR no m/t/r/g/h Resp: CTA Abd: [id number] Soft NT no guarding or rigidity Ext: DP2+= no edema Skin: W/D normal turgor Lymph/Heme: No active bleeding or adenopathy Neuro: CN2-12 intact Hospital course: The patient is a 77 year old F with a history of TIA about 1 month ago, paroxysmal atrial fibrillation, chronic vertigo, hypertension, hyperlipidemia, tachybradycardia syndrome who presented to the emergency room with worsening of vertigo for 1 day. She had started to have nausea vomiting and diarrhea and her vertigo had become severely worse described as the room spinning present at rest lying down and worse with sitting up. She had recently been diagnosed with a TIA about a month ago and at that point had been started on Eliquis which she has been compliant with. She had no complaints of focal weakness or slurred speech. She had low potassium and normal renal function. She was treated with IV fluids, meclizine, Valium, potassium replacement and admitted to the PCU. She had no events on telemetry overnight. The following day her symptoms had significantly improved. She worked with PT and OT and did well. She was felt to have had worsening of chronic vertigo secondary to acute viral gastroenteritis. She was given a prescription for as needed meclizine. It is felt that vestibular therapy was not likely necessary at this point and that she was advised to follow-up with her PCP in 1-2 weeks. She was discharged home in stable condition. This patient was seen by Tao Alaniz PA-C under the supervision of Doctor Bindu. [] Discharge Diet: Low fat/ Low Cholesterol, 2000 mg Sodium Diet Discharge Activity: Return to Normal Activity Home Medications: Medications to take at Discharge alendronate 35 mg tablet 35 mg PO SA 84 Days #12 tab 01/15/18 calcium carbonate-vitamin D3 600 mg calcium-200 unit capsule 1 cap PO BID cap 01/15/18 levothyroxine 50 mcg tablet 50 mcg PO QDAY 90 Days #90 tab 01/15/18 simvastatin 40 mg tablet 40 mg PO QDAY 90 Days #90 tab 01/15/18 hydrochlorothiazide 25 mg tablet 25 mg PO QDAY 90 Days #90 tab 01/18/18 polyethylene glycol 3350 17 gram oral powder packet 17 g PO QDAY 01/18/18 Albuterol Inhaler [Ventolin Hfa] 2 puff INHALATION Q6H PRN PRN 06/03/18 Acetaminophen [Tylenol] 1,000 mg PO Q8H PRN PRN 07/05/18 Apixaban [Eliquis] 5 mg PO BID 07/05/18 Sotalol Hydrochloride [Betapace (Beta Alyssia)] 40 mg PO BID 07/05/18 Meclizine HCl [Antivert] 12.5 mg PO TID #21 tab 07/06/18 Following Prescrptions Were Given to Patient: Meclizine HCl [Antivert] 12.5 mg PO TID #21 tab Primary Care Physician: Martine Chappell MD [Primary Care Provider] - Please follow up with your Primary Care Physician in: 1-2 weeks Disposition: Home Minutes spent on discharge:: 40 Patient Condition:: Stable Medical Necessity - Tobacco Use Smoking Status: Former smoker Meaningful Use Info Meaningful Use Diagnoses (Choose all that apply): None applicable <Wyatt Ruano - Last Filed: 07/06/18 15:14> Discharge Date and Diagnosis - Secondary Discharge Diagnosis Chronic Problems (Last Reviewed 07/06/18 @ 02:38 by Antonino Pabon MD) Vasovagal syncope (Chronic) Tachycardia-bradycardia syndrome (Chronic) Paroxysmal atrial fibrillation (Chronic) HLD (hyperlipidemia) (Chronic) HTN (hypertension) (Chronic) Hospital Course and Treatment Summary of Care Provided: The patient is a 77 year old F [] Code Visit Addendum: Dr. Ruano I personally examined the patient and reviewed the chart. I agree with the above. Doris is a 77-year-old female with a history of TIA and A. fib presenting with vertigo. He stated that yesterday afternoon she had significant nausea and vomiting prior to the episode of dizziness. When she developed the dizziness she also then developed diarrhea and did not eat very well yesterday. Did not communicate with her PCP during this episode. She was admitted overnight with intractable vertigo. Morning on exam her vertigo had resolved and I performed a modified [place]-Hallpike that did not demonstrate any BPPV. She was hydrated with IV fluids for her likely viral gastroenteritis and since her nausea, vomiting and dizziness had resolved, recommended discharge home with close PCP follow-up. OBSV E&M: 37057 Observation care discharge
== END 2018-07-06 11:53 | disposition home or self-care (01) ==
PROVIDERS: Hospitalist; Family Provider Family Medicine; PCP Family Medicine; Visit Provider Family Medicine
DX: E86.0 Dehydration (principal); A08.4 Viral intestinal infection, unspecified; E87.6 Hypokalemia; Z86.73 Personal history of transient ischemic attack (TIA), and cerebral infarction without residual deficits; I48.0 Paroxysmal atrial fibrillation; E78.5 Hyperlipidemia, unspecified; I10 Essential (primary) hypertension; Z79.899 Other long term (current) drug therapy; Z79.01 Long term (current) use of anticoagulants; Z87.891 Personal history of nicotine dependence; E03.9 Hypothyroidism, unspecified; K58.9 Irritable bowel syndrome, unspecified; J44.9 Chronic obstructive pulmonary disease, unspecified; I49.5 Sick sinus syndrome
CPT/HCPCS: 36415; 80048; 80053; 85027; 87493; 97162; 97165; 99218; J7030; A4216; G0378; G0379

== ENCOUNTER → 2018-10-16 09:50 | Outpatient (CLI) | payer MEDICARE, OTHER, SELFPAY ==
--- NOTE | 2018-10-16 09:55 | ART_ITS ---
Reason For Study: Intermittant claudication Procedure A bilateral lower extremity continuous wave Doppler with analog waveform analysis,segmental pressures,and ankle brachial indexes without exercise. Left Segmental Pressures Left brachial= 151mmHg. Left posterior tibial artery = 169mmHg. Left dorsalis pedis artery = 170mmHg. The left dorsalis pedis waveforms are triphasic. The left posterior tibial artery waveforms are triphasic. Right Segmental Pressures Right brachial= 152mmHg. Right posterior tibial artery = 159mmHg. Right dorsalis pedis artery = 0178mmHg. The right dorsalis pedis waveforms are triphasic. The right posterior tibial artery waveforms are triphasic. Indices The right ankle brachial index by the dorsalis pedis is 1.2. The right ankle brachial index by the posterior tibial artery is 1.1. The left ankle brachial index by the dorsalis pedis is 1.1. The left ankle brachial index by the posterior tibial artery is 1.1. Interpretation Summary Triphasic waveforms are noted at ankle level bilaterally. Resting ankle-brachial indices appear bilaterally normal. There is no evidence of significant arterial occlusive disease. Ordering Physician: Martine Chappell Referring Physician: Martine Chappell Performed By: Anastasia Salcedo [facility]
== END ==
PROVIDERS: Family Provider Family Medicine; PCP Family Medicine; Referring Provider Family Medicine; Visit Provider Family Medicine
DX: I73.9 Peripheral vascular disease, unspecified (principal)
CPT/HCPCS: 93923

== ENCOUNTER → 2019-01-28 | Outpatient (CLI) | payer MEDICARE, OTHER, SELFPAY ==
[2018-12-12 11:35] VITALS: BMI 24.8
--- NOTE | 2019-01-28 15:05 | BI_ITS ---
MAMMOGRAPHY - BILATERAL SCREENING REASON FOR EXAM: Female, 78 years old. Routine annual screening examination. PERTINENT HISTORY: Sister with breast cancer. TECHNIQUE: Digital bilateral breast jessie (3D mammographic acquisition) in the CC and MLO projections. 2-D mediolateral oblique (MLO) and craniocaudad (CC) views of both breasts were obtained. CAD: Full Field Digital Mammography with Computer Added Detection was performed. COMPARISON: Comparison is made with prior study dated January 19, 2016 and January 16, 2015. FINDINGS: Breast Composition: There are scattered areas of fibroglandular density. There are no dominant masses or suspicious calcifications. Stable 3 mm well-defined nodule in the deep slightly upper medial aspect of the left breast. Prior ultrasound demonstrated this to be a small cyst. No other significant abnormalities are identified. There has been no significant change since the prior study. BI/SCREENING MAMM (CAD), BILAT IMPRESSION: Stable bilateral screening mammogram. Yearly follow-up mammogram recommended. (A) ASSESSMENT CATEGORY: BIRADS Category 2: Benign. A letter regarding these results will be sent to the patient by the facility within 30 days. Approximately 10% of breast cancers are not detected by mammography. A normal mammogram should not delay biopsy of a clinically suspicious abnormality. [id number] Electronically Signed: Derrick Burnette, at 9:23 EDT , Service support ,
== END | disposition home or self-care (01) ==
LOC: OPBI 15:04
PROVIDERS: Family Provider Family Medicine; PCP Family Medicine; Referring Provider Nurse Practitioner Family; Visit Provider Nurse Practitioner Family
DX: Z12.31 Encounter for screening mammogram for malignant neoplasm of breast (principal)
CPT/HCPCS: 77063; 77067

== ENCOUNTER → 2019-05-07 | Outpatient (CLI) | payer MEDICARE, OTHER, SELFPAY ==
[2019-03-27 08:23] VITALS: BMI 25.2
[2019-05-07 17:31] LABS: Absolute Lymphocyte Count 1.48 X10^3/uL (0.83-4.51); Absolute Neutrophil Count 6.2 X10^3/uL (2.0-7.7); Basophil# 0.07 X10^3/uL; Basophil% 0.8 % (0-1); Eosinophil# 0.18 X10^3/uL; Eosinophils% 2.1 % (0-5); Hematocrit 42.2 % (37-47); Hemoglobin 14.5 g/dL (12.0-15.0); Lymphocyte # 1.48 X10^3/ul (4.0); Lymphocyte % 16.9 % (19-41); Mean Corp Hgb Conc 34.4 g/dL (32-36); Mean Corpuscular Hgb 32.2 pg (27.0-32.0); Mean Corpuscular Volume 93.8 fL (81-99); Mean Platelet Vol. 10.2 fl (6.2-12.0); Monocyte# 0.76 X10^3/uL; Monocyte% 8.7 % (0-10); NRBC Flagged by Analyzer 0 % (0-5); Neutrophil # 6.23 X10^3/uL (2.7-7.7); Platelet Count 296 K/mm3 (150-450); RBC Distribution Width SD 44.5 fl (35.1-43.9); White Blood Count 8.8 K/mm3 (4.4-11.0)
[2019-05-07 19:02] LABS: ALB/GLOB Ratio 1.2 RATIO (0.9-2.4); AST(SGOT) 25 U/L (15-37); Alanine Aminotransfer ALT/SGPT 33 U/L (13-56); Albumin, Serum 3.6 g/dL (3.2-5.0); Alkaline Phosphatase 77 U/L (45-117); Anion Gap 9 (5-15); BUN 10 mg/dL (7-18); BUN/Creat Ratio 13.9 RATIO (10-20); Calcium,Total 10.2 mg/dL (8.5-10.1); Chloride 90 mmol/L (98-107); Creatinine, Serum 0.72 mg/dL (0.55-1.02); EST Glomerular Filtration Rate 83 mL/min (>60); Est Glom Filt Rate - Afr Amer 101 mL/min (>60); Glucose 118 mg/dL (74-106); Potassium 3.7 mmol/L (3.5-5.1); Protein, Total 6.6 g/dL (6.4-8.2); Sodium Level 129 mmol/L (136-145); T4 Total, Thyroxin 14.8 ug/dL (4.8-13.9); Thyroid Stim Hormone (TSH) 0.97 uIU/mL (0.358-3.74)
== END | disposition home or self-care (01) ==
LOC: MFPLAB 14:56
PROVIDERS: Family Provider Family Medicine; PCP Family Medicine; Referring Provider Family Medicine; Visit Provider Family Medicine
DX: I10 Essential (primary) hypertension (principal); E03.9 Hypothyroidism, unspecified; J44.9 Chronic obstructive pulmonary disease, unspecified
CPT/HCPCS: 36415; 80053; 84436; 84443; 85025

== ENCOUNTER → 2019-05-14 | Outpatient (CLI) | payer MEDICARE, OTHER, SELFPAY ==
[2019-03-27 08:23] VITALS: BMI 25.2
[2019-05-14 12:43] LABS: BUN 9 mg/dL (7-18); BUN/Creat Ratio 13.4 RATIO (10-20); Calcium,Total 10.3 mg/dL (8.5-10.1); Chloride 91 mmol/L (98-107); Creatinine, Serum 0.67 mg/dL (0.55-1.02); EST Glomerular Filtration Rate 90 mL/min (>60); Est Glom Filt Rate - Afr Amer 109 mL/min (>60); Glucose 101 mg/dL (74-106); Sodium Level 128 mmol/L (136-145)
[2019-05-14 12:44] LABS: Anion Gap 6 (5-15)
== END | disposition home or self-care (01) ==
LOC: MFPLAB 09:44
PROVIDERS: Family Provider Family Medicine; PCP Family Medicine; Referring Provider Family Medicine; Visit Provider Family Medicine
DX: I10 Essential (primary) hypertension (principal)
CPT/HCPCS: 36415; 80048

== ENCOUNTER → 2019-05-17 | Outpatient (CLI) | payer MEDICARE, OTHER, SELFPAY ==
[2019-03-27 08:23] VITALS: BMI 25.2
[2019-05-17 13:21] LABS: 24Hr.Lytes Total Volume 500 mL; Sodium 24 HR UR 26 mmol/24h (40-220); Urine Sodium 52 mmol/L (Not Establ.)
[2019-05-17 13:22] LABS: Urine Chloride 60 mmol/L (Not Establ.)
[2019-05-17 13:38] LABS: Osmolality, Urine 310 mOsm/KG
== END | disposition home or self-care (01) ==
LOC: LAB.FUTURE 09:47
PROVIDERS: Family Provider Family Medicine; PCP Family Medicine; Referring Provider Family Medicine; Visit Provider Family Medicine
DX: E87.1 Hypo-osmolality and hyponatremia (principal)
CPT/HCPCS: 81050; 82436; 82570; 83935; 84133; 84300

== ENCOUNTER 2019-05-18 14:34 | Inpatient (IN) | payer MEDICARE, OTHER, SELFPAY ==
[2019-03-27 08:23] VITALS: BMI 25.2
[2019-05-18 14:28] VITALS: BMI 25.2
[2019-05-18 14:36] VITALS: BP 122/69; PULSE 62; RESP 16; TEMP 36.6; O2SAT 93; BMI 25.2
--- NOTE | 2019-05-18 14:55 | PCM.HP.STD ---
Problem List (1) Fall Status: Acute (2) Hand fracture, left Status: Acute (3) Hyponatremia Status: Acute (4) Essential (primary) hypertension Status: Chronic (5) Mixed hyperlipidemia Status: Chronic (6) TIA (transient ischemic attack) Status: Chronic (7) Paroxysmal atrial fibrillation Status: Chronic History of Present Illness Date of Admission: 05/18/19 Chief Complaint: Fall The patient is a 78 year old F with past medical history significant for paroxysmal atrial fibrillation on Eliquis, hypertension who presented following a fall. Patient states she was in the garden watering her hicks when she tripped and fell she apparently bruised the left side of her face as well as her hand. She was initially seen and evaluated at [facility] CT of the head was negative for acute bleed he was however found to have fractures involving the left two medial metaphalangeals. Patient was also found to be hyponatremic with sodium level of 126 subsequently transferred to the [facility] per patient's request. 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 COPD (chronic obstructive pulmonary disease) J44.9 IBS (irritable bowel syndrome) K58.9 Tachy-chikis syndrome I49.5 Vaso vagal episode R55 Vertigo R42 Gastroenteritis K52.9 Vasovagal syncope (Resolved) R55 Allergies ceftriaxone [From Rocephin] Adverse Reaction (Verified 03/27/19 08:58) Hives doxycycline [From Vibramycin] Adverse Reaction (Verified 03/27/19 08:58) Hives oxycodone [From OxyContin] Adverse Reaction (Verified 03/27/19 08:58) hallucinations Home Medications: Ambulatory Orders Medication Instructions Recorded alendronate 35 mg tablet 35 mg PO QWEEK 84 Days #12 tab 01/15/18 calcium carbonate-vitamin D3 600 1 cap PO BID cap 01/15/18 mg calcium-200 unit capsule levothyroxine 50 mcg tablet 50 mcg PO QDAY 90 Days #90 tab 01/15/18 simvastatin 40 mg tablet 40 mg PO QHS 90 Days #90 tab 01/15/18 hydrochlorothiazide 25 mg tablet 25 mg PO QDAY 90 Days #90 tab 01/18/18 Acetaminophen [Tylenol] 1,000 mg PO Q8H PRN PRN 07/05/18 Apixaban [Eliquis] 5 mg PO BID 07/05/18 Sotalol Hydrochloride [Betapace 80 mg PO BID 05/18/19 (Beta Aylssia)] Surgical History: Surgical History (Last Reviewed 05/18/19 @ 15:32 by Shay Thorpe MD) History of appendectomy Z90.49 History of bilateral knee replacement Z96.653 History of hernia surgery Z98.890, Z87.19 Hx Sigmoidectomy Surgical History: - - Appendectomy, bilateral total knee replacement, L total hip replacement, sigmoidectomy, history of hernia surgery. 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 Paternal Family History: Family History (Last Reviewed 05/18/19 @ 15:32 by Shay Thorpe MD) Mother pacemaker Daughter Arthritis Daughter CAD (coronary artery disease) Diabetes Hypertension Sister CVA (cerebral vascular accident) History Items: Unknown - Patient states she does not know her father's history. Review of Systems Constitutional: Denies: Anorexia, Chills, Fever, Night Sweats, Weight Change HEENT: Denies: Head Aches, Sinus Congestion, Sinus Drainage Cardiovascular: Denies: Chest Pain, Orthopnea, Palpitations, Paroxysmal Noc. Dyspnea Respiratory: Denies: Cough, Shortness of breath at rest, Shortness of breath upon exertion, Sputum production Gastrointestinal: Denies: Abdominal Pain, Hematemesis, Hematochezia, Nausea, Melena, Vomiting Genitourinary: Denies: Dysuria, Frequency, Hematuria, Urgency Musculoskeletal: Reports: Hand Pain, Joint Pain Skin: Denies: Rash Neurological: Denies: Focal weakness, Numbness, Tingling Psychiatric: Denies: Homicidal Ideations, Suicidal Ideations Hematologic/ Lymphatic: Denies: Easy Bruising, Easy Bleeding VTE Information - Inpt Only VTE Present on Admission: No VTE Mechan Device Prophylaxis: None VTE Pharm Prophylaxis ordered?: Yes Patient Problems: Active and Suspected Problems (Last Reviewed 05/18/19 @ 15:32 by Shay Thorpe MD) Fall (Acute) Hand fracture, left (Acute) Hyponatremia (Acute) Objective: GENERAL: cooperative HEENT: Bruises involving the left side of the face surrounding the left orbit EYES; Anicteric, Normal Conjunctiva NECK; supple, normal thyroid, RESPIRATORY: Diminished to auscultation CARDIOVASCULAR: Regular S1 S2, GI: soft, non-tender, normoactive bowel sounds, : No Renal angle tenderness; EXTREMITIES: No edema, no clubbing, no cyanosis. MUSCULOSKELETAL: Swelling and bruising involving the left medial hand with tenderness NEURO: Awake; no lateralizing signs. SKIN: No Rash PSYCH; Normal affect - Physical Exam Vital Signs Temp Pulse Resp BP Pulse Ox 98 F 62 16 122/69 H 93 05/18/19 14:36 05/18/19 14:36 05/18/19 14:36 05/18/19 14:36 05/18/19 14:36 Oxygen Delivery Method Room Air Weight: 72.9 kg Body Mass Index (BMI) 25.2 Assessment/Plan All Active Problems (Last Reviewed 05/18/19 @ 15:32 by Shay Thorpe MD) Fall (Acute) Hand fracture, left (Acute) Hyponatremia (Acute) Vasovagal syncope (Resolved) Patient is an 78-year-old lady who presented with a fall with left facial bruising and fractures involving the 2 medial letter phalanges of the left hand. She was also found to be hyponatremic on admission 1. Acute non-syncopal mechanical fall with closed head injury as well as fractures involving the left hand. Admitted to a monitored bed. Treated symptomatically with regard to pain management. Consult placed orthopedic surgery regarding her hand fracture 2. Hyponatremia secondary to patient being on HCTZ. The suspected offending medication held started on saline with monitoring of electrolyte 3. Paroxysmal atrial fibrillation patient is on sotalol. She had previously undergone ablation as well as cardioversion. She is also on Eliquis for stroke prophylaxis 4. History of transient ischemic attack 5. Essential hypertension did continue with home medication except for HCTZ for above reasons 6. Dyslipidemia-patient is on statin therapy, continued at home dose 7. Hypothyroidism-patient is on levothyroxine home dose continued 8. Osteoporosis patient is on alendronate 9. DVT prophylaxis on Eliquis Advance planning; did discuss with the patient and family (patient's daughters) regarding advanced directives as well as CODE STATUS. Did explain the various scenarios involved ( FULL CODE, DNR CCA, DNR CCA with no intubation, and DNR CC and what each meant) patient elected to be DNR CCA no intubation. Order was placed. Time spent on discussion 20 minutes. Code Visit OBSV E&M: 39377 Initial observation care L3 Procedures: 88194 Advncd Care Plan 30 Min
[2019-05-18 15:25] VITALS: PULSE 67
[2019-05-18 16:23] VITALS: O2SAT 93
[2019-05-18 16:24] VITALS: RESP 18; O2SAT 93
[2019-05-18] MEDS: Calcium Carb/Vitamin D 1 TABLET Tablet PO (16:27)
[2019-05-18] MEDS: 0.9% NaCl Peripheral Flush Adult/Peds IV ×2 (16:31→17:37)
--- NOTE | 2019-05-18 17:20 | RAD_ITS ---
STUDY: X-RAY - LEFT HAND REASON FOR EXAM: Female, 78 years old. Pain. Swelling. TECHNIQUE: 3 view(s) of the hand. COMPARISON: None. FINDINGS: There is diffuse demineralization. There are deformities of the hands and neck subcutaneous fourth and fifth metacarpals. The appearance suggests nondisplaced, slightly impacted fractures of indeterminate age. There is soft tissue swelling medially and dorsally. Degenerative changes are seen of the wrist especially at the base of the thumb. RAD/Hand Min 3 Views IMPRESSION: Probable nondisplaced slightly impacted fractures of the necks of the fourth and fifth metacarpals of indeterminate age, possibly acute or subacute. Electronically Signed: Iker Connell MD at 17:42 EDT , Service support ,
[2019-05-18] MEDS: Morphine 4 MG/ML Syringe IV (17:37)
[2019-05-18 19:12] VITALS: PULSE 64
[2019-05-18 21:00] VITALS: BP 105/50; PULSE 64; RESP 18; TEMP 37; O2SAT 94
[2019-05-18] MEDS: APIXABAN 5 MG TABLET PO (21:10)
[2019-05-18] MEDS: Acetaminophen 500 MG Tablet 1000 MG PO (21:10)
[2019-05-18] MEDS: Atorvastatin Calcium 20 MG Tablet PO (21:10)
[2019-05-19] VITALS (13 sets, daily range): BP systolic 96–130; BP diastolic 51–70; PULSE 56–77; RESP 17–18; TEMP 36.4–37; O2SAT 91–95
--- NOTE | 2019-05-19 00:41 | NURSING ---
88% on RA states does feels a little shortness of breath but has been chronic for patient. placed on 2lnc went up to 93%
[2019-05-19] MEDS: Morphine 4 MG/ML Syringe IV ×2 (00:43→22:02)
[2019-05-19] MEDS: Acetaminophen 500 MG Tablet 1000 MG PO ×2 (06:05→14:57)
[2019-05-19] MEDS: Levothyroxine 50 MCG Tablet PO (06:05)
[2019-05-19 06:10] LABS: Absolute Lymphocyte Count 1.78 X10^3/uL (0.83-4.51); Absolute Neutrophil Count 5.9 X10^3/uL (2.0-7.7); Basophil# 0.04 X10^3/uL; Basophil% 0.5 % (0-1); Eosinophil# 0.15 X10^3/uL; Eosinophils% 1.7 % (0-5); Hematocrit 39.4 % (37-47); Hemoglobin 13.5 g/dL (12.0-15.0); Lymphocyte # 1.78 X10^3/ul (4.0); Lymphocyte % 20.3 % (19-41); Mean Corp Hgb Conc 34.3 g/dL (32-36); Mean Corpuscular Hgb 32.8 pg (27.0-32.0); Mean Corpuscular Volume 95.9 fL (81-99); Mean Platelet Vol. 9.4 fl (6.2-12.0); Monocyte# 0.85 X10^3/uL; Monocyte% 9.7 % (0-10); NRBC Flagged by Analyzer 0 % (0-5); Neutrophil % 67.3 % (47-70); Platelet Count 228 K/mm3 (150-450); RBC Distribution Width CV 12.8 % (11.6-14.6); Red Blood Count 4.11 M/mm3 (4.2-5.4); White Blood Count 8.8 K/mm3 (4.4-11.0)
--- NOTE | 2019-05-19 06:10 | NURSING ---
PATIENT LEFT HAND MORE SWOLLEN AND BRUISED THIS AM, RADIAL PULSE PRESENT, STATES FEELS BETTER THAN YESTERDAY.
[2019-05-19 06:22] LABS: Anion Gap 5 (5-15); BUN 11 mg/dL (7-18); BUN/Creat Ratio 17.6 RATIO (10-20); Calcium,Total 9.5 mg/dL (8.5-10.1); Chloride 101 mmol/L (98-107); Creatinine, Serum 0.63 mg/dL (0.55-1.02); EST Glomerular Filtration Rate 97 mL/min (>60); Est Glom Filt Rate - Afr Amer 118 mL/min (>60); Estimated Creatinine Clearance 43.63 ml/min; Glucose 81 mg/dL (74-106); Potassium 3.7 mmol/L (3.5-5.1); Sodium Level 136 mmol/L (136-145)
--- NOTE | 2019-05-19 07:29 | PN_ITS ---
Patient Problems: Active and Suspected Problems (Last Reviewed 05/18/19 @ 15:32 by Shay Thorpe MD) Fall (Acute) Hand fracture, left (Acute) Hyponatremia (Acute) Subjective: Patient is an 78-year-old lady who presented with a fall with left facial bruising and fractures involving the fourth and fifth metacarpals the left hand. She was also found to be hyponatremic on admission 05/19/2019: Patient sodium levels back within normal limits. HCTZ on hold did discuss with patient about plans to discontinue on discharge and consult was placed to Dr. Montano regarding patient hand fracture Objective: GENERAL: cooperative HEENT: Bruises involving the left side of the face surrounding the left orbit EYES; Anicteric, Normal Conjunctiva NECK; supple, normal thyroid, RESPIRATORY: Diminished to auscultation CARDIOVASCULAR: Regular S1 S2, GI: soft, non-tender, normoactive bowel sounds, : No Renal angle tenderness; EXTREMITIES: No edema, no clubbing, no cyanosis. MUSCULOSKELETAL: Swelling and bruising involving the left medial hand with tenderness NEURO: Awake; no lateralizing signs. SKIN: No Rash PSYCH; Normal affect Vitals/I&O's: Vital Signs Temp Pulse Resp BP Pulse Ox 98.6 F 62 18 104/58 L 93 05/19/19 06:00 05/19/19 06:00 05/19/19 06:00 05/19/19 06:00 05/19/19 06:00 Oxygen Flow Rate (L/min) 2 Oxygen Delivery Method Room Air Weight: 72.9 kg Body Mass Index (BMI) 25.2 Intake and Output for Last 24 Hours 05/17/19 05/18/19 05/19/19 23:59 23:59 23:59 Intake Total 1268 / 1268 808 / 808 Balance 1268 / 1268 808 / 808 Laboratory Results 05/19/19 05:59: WBC 8.8, RBC 4.11 L, Hgb 13.5, Hct 39.4, MCV 95.9, MCH 32.8 H, MCHC 34.3, RDW Std Deviation 45.0 H, RDW Coeff of Crystal 12.8, Plt Count 228, MPV 9 .4, Immature Gran % (Auto) 0.500, Neut % (Auto) 67.3, Lymph % (Auto) 20.3, Burnett % (Auto) 9.7, Eos % (Auto) 1.7, Baso % (Auto) 0.5, Absolute Neuts (auto) 5.9, Absolute Lymphs (auto) 1.78, Nucleated RBC % 0 05/19/19 05:59: Sodium 136, Potassium 3.7, Chloride 101, Carbon Dioxide 30.0, Anion Gap 5, BUN 11, Creatinine 0.63, Estim Creat Clear Calc 43.63, Est GFR (MDRD) Af Amer 118, Est GFR (MDRD) Non-Af 97, BUN/Creatinine Ratio 17.6, Glucose 81, Calcium 9.5 Current Medications Acetaminophen (Tylenol) 1,000 mg PO Q8H PRN PRN PRN Reason: arthritis pain Last Admin: 05/19/19 06:05 Dose: 1,000 mg Documented by: Al Hydroxide/Mg Hydroxide (Mylanta Ii) 30 ml PO Q6H PRN PRN PRN Reason: Gastric Burning Albuterol Sulfate (Ventolin Aerosols) 2.5 mg INHALATION Q2H PRN PRN PRN Reason: SOB/Wheezing Apixaban (Eliquis) 5 mg PO BID [facility] Last Admin: 05/18/19 21:10 Dose: 5 mg Documented by: Atorvastatin Calcium (Lipitor) 20 mg PO QHS [facility] Last Admin: 05/18/19 21:10 Dose: 20 mg Documented by: Calcium/Vitamin D (Os-Donald 500mg + D) [facility] Last Admin: 05/18/19 16:27 Dose: 1 tablet Documented by: Dextrose (D50w Syringe) 0 gm IV X1 PRN; Protocol PRN Reason: Hypoglycemia Glucagon () 1 mg IM .X1 PRN PRN Reason: Hypoglycemia Guaifenesin (Robitussin) 20 ml PO Q4H PRN PRN PRN Reason: COUGH Potassium Chloride/Sodium Chloride () 1,000 mls @ 100 mls/hr IV .Q10H [facility] Last Admin: 05/19/19 00:43 Dose: 100 mls/hr Documented by: Levothyroxine Sodium (Synthroid) 50 mcg PO DAILY@0600 [facility] Last Admin: 05/19/19 06:05 Dose: 50 mcg Documented by: Magnesium Hydroxide (Milk Of Magnesia) 30 ml PO DAILY PRN PRN PRN Reason: Constipation Melatonin (Melatonin) 3 mg PO QHS PRN PRN PRN Reason: INSOMNIA Morphine Sulfate () 4 mg IV Q4H PRN PRN PRN Reason: SEVERE PAIN (6-10/10) Last Admin: 05/19/19 00:43 Dose: 4 mg Documented by: Nitroglycerin (Nitrostat) 0.4 mg SUBLINGUAL Q5M PRN PRN Reason: CARDIAC/CHEST PAIN Promethazine HCl (Phenergan) 25 mg IM Q6H PRN PRN PRN Reason: Breakthrough Nausea/Vomiting Sodium Chloride () 10 - 40 ml IV UD PRN PRN Reason: SALINE FLUSH Last Admin: 05/18/19 17:37 Dose: 10 ml Documented by: Sotalol HCl (Betapace (G)) 80 mg PO BID MAGDALENE Last Admin: 05/18/19 22:08 Dose: Not Given Documented by: Medical Necessity - Tobacco Use Smoking Status: Former smoker Assessment/Plan All Active Problems (Last Reviewed 05/18/19 @ 15:32 by Shay Thorpe MD) Fall (Acute) Hand fracture, left (Acute) Hyponatremia (Acute) Vasovagal syncope (Resolved) Patient is an 78-year-old lady who presented with a fall with left facial bruising and fractures involving the fourth and fifth metacarpals the left hand. She was also found to be hyponatremic on admission 1. Acute non-syncopal mechanical fall with closed head injury as well as fractures involving the left hand. Admitted to a monitored bed. Treated symptomatically with regard to pain management. Consult was placed to Dr. Montano regarding patient hand fracture 2. Hyponatremia secondary to patient being on HCTZ. The suspected offending medication held started on saline with monitoring of electrolyte. Patient's sodium level normalized as of 05/19/2019. 3. Paroxysmal atrial fibrillation patient is on sotalol. She had previously undergone ablation as well as cardioversion. She is also on Eliquis for stroke prophylaxis 4. History of transient ischemic attack 5. Essential hypertension did continue with home medication except for HCTZ for above reasons 6. Dyslipidemia-patient is on statin therapy, continued at home dose 7. Hypothyroidism-patient is on levothyroxine home dose continued 8. Osteoporosis patient is on alendronate 9. DVT prophylaxis on Eliquis Clinical Impression(s) from Imaging Studies Hand X-Ray 08/17/19 17:20 IMPRESSION: Probable nondisplaced slightly impacted fractures of the necks of the fourth and fifth metacarpals of indeterminate age, possibly acute or subacute. Electronically Signed: Iker Connell MD at 17:42 EDT , Service support , Code Visit OBSV E&M: 26721 Subsequent observation care L2
[2019-05-19] MEDS: APIXABAN 5 MG TABLET PO ×2 (08:17→20:47)
[2019-05-19] MEDS: Calcium Carb/Vitamin D 1 TABLET Tablet PO ×2 (08:17→17:28)
[2019-05-19] MEDS: Sotalol Hydrochloride 80 MG Tablet PO ×2 (08:17→20:48)
[2019-05-19] MEDS: 0.9% NaCl Peripheral Flush Adult/Peds IV ×2 (11:01→22:03)
--- NOTE | 2019-05-19 13:30 | NURSING ---
Called and spoke with patient's daughter, Mitzi. Informed her that RN had spoken with Dr. Montano and made her aware of daughter's concern. Dr. Montano asked to be cortexted the daughter's information and she will call daughter personally. Mitzi also made aware that Dr. Thorpe was in to see patient this am. He informed her that she would be here until Monday.
[2019-05-19] MEDS: Atorvastatin Calcium 20 MG Tablet PO (20:48)
[2019-05-20] VITALS (7 sets, daily range): BP systolic 100–128; BP diastolic 55–75; PULSE 63–70; RESP 18; TEMP 36.6–36.8; O2SAT 90–93
[2019-05-20] MEDS: Levothyroxine 50 MCG Tablet PO (04:02)
[2019-05-20] MEDS: Acetaminophen 500 MG Tablet 1000 MG PO (05:02)
[2019-05-20 06:26] LABS: Absolute Neutrophil Count 5.5 X10^3/uL (2.0-7.7); Basophil# 0.04 X10^3/uL; Basophil% 0.5 % (0-1); Eosinophil# 0.24 X10^3/uL; Eosinophils% 2.9 % (0-5); Hematocrit 39.9 % (37-47); Hemoglobin 13.1 g/dL (12.0-15.0); Lymphocyte % 21.9 % (19-41); Mean Corp Hgb Conc 32.8 g/dL (32-36); Mean Corpuscular Hgb 31.6 pg (27.0-32.0); Mean Corpuscular Volume 96.1 fL (81-99); Mean Platelet Vol. 9.9 fl (6.2-12.0); Monocyte# 0.61 X10^3/uL; Monocyte% 7.4 % (0-10); NRBC Flagged by Analyzer 0 % (0-5); Neutrophil # 5.49 X10^3/uL (2.7-7.7); Neutrophil % 66.8 % (47-70); Platelet Count 246 K/mm3 (150-450); RBC Distribution Width CV 12.8 % (11.6-14.6); RBC Distribution Width SD 45.1 fl (35.1-43.9); Red Blood Count 4.15 M/mm3 (4.2-5.4); White Blood Count 8.2 K/mm3 (4.4-11.0)
[2019-05-20 06:33] LABS: Anion Gap 3 (5-15); BUN 15 mg/dL (7-18); BUN/Creat Ratio 26.9 RATIO (10-20); Calcium,Total 9.4 mg/dL (8.5-10.1); Chloride 102 mmol/L (98-107); Creatinine, Serum 0.56 mg/dL (0.55-1.02); EST Glomerular Filtration Rate 111 mL/min (>60); Est Glom Filt Rate - Afr Amer 135 mL/min (>60); Estimated Creatinine Clearance 43.63 ml/min; Glucose 81 mg/dL (74-106); Potassium 3.9 mmol/L (3.5-5.1); Sodium Level 136 mmol/L (136-145)
[2019-05-20] MEDS: Calcium Carb/Vitamin D 1 TABLET Tablet PO (08:40)
[2019-05-20] MEDS: APIXABAN 5 MG TABLET PO (08:40)
--- NOTE | 2019-05-20 11:33 | CASEMGMT ---
LIYAH PACHECO assessment: Face to Face with patient for initial transition planning/care coordination assessment. LIYAH PACHECO introduced self and role at [facility], pt voices understanding and consents to assessment at this time. Pt is sitting up in bed in no distress at this time. Pt is A/Ox4 at this time and answers all questions appropriately at this time. Care providers, pharmacy, and demographics verified at this time. PCP: Ta Specialists: jerrod Noriega Pharmacy: [facility] Insurance: [facility] A/B, AARP Prescription Benefit: A[employer] Living Will/HPOA: Pt states has LW/HPOA and they are currently in file at [facility] at this time. Pt states her daughter, Mitzi Gonsalez, is HPOA. LNOK: Mitzi Gonsalez, daughter Living Arrangements: Pt states that her daughter lives with her in 1 story home with 3 steps in and a ramp as well. Pt states no concerns at home at this time. Pt states is independent with ADL's. Transportation: Pt states drives self and states no transportation concerns at this time. DME/HHC: Pt states has the following DME: cane, walker, grab bars, and shower chair. Pt states no need for any further DME at this time. Pt states has had HHC in the past and has been to [facility] in the past as well. Pt states no concerns with going home at time of discharge. Pt is retired. Pt states does not smoke or drink ETOH. Pt states no further concerns/needs at this time. CM to follow for any further discharge planning/needs. Advised pt to ask for CM if any further questions/concerns/needs arise, voices understanding. Pt Goal: Home Plan: [place] LIYAH PACHECO
--- NOTE | 2019-05-20 11:56 | CONS.ORTHO ---
Problem List (1) Hand fracture, left Status: Acute Qualifiers: Encounter type: initial encounter Fracture type: closed Qualified Code(s): S62.92XA - Unspecified fracture of left wrist and hand, initial encounter for closed fracture Comment: Left 4th and 5th metacarpal neck fractures of undetermined age - Consult Date of Consult: 05/20/19 Patient seen sitting up in bed in her room in no apparent distress. She is alert and oriented with appropriate affect and is very cooperative. Her left hand is currently immobilized with volar malleable splints of the 4th and 5th digit and overlying JOLLY wraps. She does have diffuse swelling of the hand including all of her fingers as well as ecchymosis and bruising. She does have intact sensation of the fingers to light touch and she has intact flexion/extension of the DIP and PIP joints of all the fingers with some mild stiffness due to swelling. There is tenderness on palpation of the distal 4th and 5th metacarpal region. She has normal distal radius pulses. We discussed her X-rays which show slightly impacted 4th and 5th metacarpal neck fractures of undetermined age. With the swelling and the ecchymosis it does increase likelihood of a more acute injury (she did have bad injury approximately 10 years ago.) At this time swelling is such that would not change her splinting. Hand is stable and she can follow-up for further evaluation on an outpatient basis at the end of this week or first thing next week to discussed next step in treatment. She is to continue to elevate the hand and can use ice on the hand for 15-20 minutes every 1-2 hours. Notify of any new symptoms or any change/progression of current symptoms.
--- NOTE | 2019-05-20 12:36 | DCINST_ITS ---
- Discharge Diagnoses Current Active Problems: Current Active and Chronic Problems (Last Reviewed 05/18/19 @ 15:32 by Shay Thorpe MD) Fall (Acute) Hand fracture, left (Acute) Left 4th and 5th metacarpal neck fractures of undetermined age Hyponatremia (Acute) You will use the following diet at home:: Other - Resume previous diet Your food should be the consistency of: Regular Your liquids should be the consistency of: Regular/Thin Discharge Activity: Use Walker Lifting Restrictions: no lifting with the left hand and no more than 10 LBs with the R Keep extremity elevated above heart level: Left Arm Call your doctor if you observe: Fever of 101 or Higher, Coldness, Increased Pain, Numbness or Tingling, Dizziness, Fainting spells, Uncontrolled pain Additional Instructions: Ice the left hand for 15 to 20 minutes every 1-2 hours while awake. Keep the left upper extremity elevated to decrease swelling and pain. Follow-up with Dr. Montano in the office the next 5 to 7 days. Sooner if any new symptoms occur. Pending Tests on Discharge: none Allergies/Adverse Reactions: Allergies ceftriaxone [From Rocephin] Adverse Reaction (Verified 03/27/19 08:58) Hives doxycycline [From Vibramycin] Adverse Reaction (Verified 03/27/19 08:58) Hives oxycodone [From OxyContin] Adverse Reaction (Verified 03/27/19 08:58) hallucinations Medications to take at Discharge alendronate 35 mg tablet 35 mg PO QWEEK 84 Days #12 tab 01/15/18 calcium carbonate-vitamin D3 600 mg calcium-200 unit capsule 1 cap PO BID cap 01/15/18 levothyroxine 50 mcg tablet 50 mcg PO QDAY 90 Days #90 tab 01/15/18 simvastatin 40 mg tablet 40 mg PO QHS 90 Days #90 tab 01/15/18 hydrochlorothiazide 25 mg tablet 25 mg PO QDAY 90 Days #90 tab 01/18/18 Acetaminophen [Tylenol] 1,000 mg PO Q8H PRN PRN 07/05/18 Apixaban [Eliquis] 5 mg PO BID 07/05/18 Sotalol Hydrochloride [Betapace (Beta Alyssia)] 80 mg PO BID 05/18/19 traMADol [Ultram (G)] 25 - 50 mg PO Q6H PRN PRN 7 Days #20 tablet 05/20/19 The following prescriptions were given: traMADol [Ultram (G)] 25 - 50 mg PO Q6H PRN PRN 7 Days #20 tablet PRN Reason: Pain Transmission Status: Sent to [facility] #69 Primary Care Physician: Martine Chappell MD [Primary Care Provider] - Please follow up with your Primary Care Physician in: as needed Test Results: Test results from this visit will be discussed in further detail at your follow- up appointment, if applicable. Please Follow Up With: Destiny Montano DO When: 5-7 days Proposed Discharge Date: 05/20/19
--- NOTE | 2019-05-20 12:42 | PCM.DC.SUM ---
Discharge Date and Diagnosis - Problem List Patient Problems: Active and Suspected Problems (Last Reviewed 05/18/19 @ 15:32 by Shay Thorpe MD) Dehydration (Acute) Fall (Acute) Hand fracture, left (Acute) Left 4th and 5th metacarpal neck fractures of undetermined age Date of Admission: 05/18/19 Date of Discharge: 05/20/19 - Primary Discharge Diagnosis Active and Suspected Problems (Last Reviewed 05/18/19 @ 15:32 by Shay Thorpe MD) Fall (Acute) Dehydration (Acute) Closed head trauma Hand fracture, left (Acute) Left 4th and 5th metacarpal neck fractures of undetermined age Hyponatremia-126 at [facility] prior to transfer to [facility] - Secondary Discharge Diagnosis Chronic Problems (Last Reviewed 05/18/19 @ 15:32 by Shay Thorpe MD) Essential (primary) hypertension (Chronic) Mixed hyperlipidemia (Chronic) TIA (transient ischemic attack) (Chronic) Paroxysmal atrial fibrillation (Chronic) Chronic anticoagulation with Eliquis Hospital Course and Treatment Imaging Results: Clinical Impression(s) from Imaging Studies Hand X-Ray 05/18/19 17:20 IMPRESSION: Probable nondisplaced slightly impacted fractures of the necks of the fourth and fifth metacarpals of indeterminate age, possibly acute or subacute. Electronically Signed: Iker Connell MD at 17:42 EDT , Service support , Laboratory Results - last 24 hr 05/20/19 05/20/19 05:45 05:45 WBC 8.2 RBC 4.15 L Hgb 13.1 Hct 39.9 MCV 96.1 MCH 31.6 MCHC 32.8 RDW Std Deviation 45.1 H RDW Coeff of Crystal 12.8 Plt Count 246 MPV 9.9 Immature Gran % (Auto) 0.500 Neut % (Auto) 66.8 Lymph % (Auto) 21.9 [place] % (Auto) 7.4 Eos % (Auto) 2.9 Baso % (Auto) 0.5 Absolute Neuts (auto) 5.5 Absolute Lymphs (auto) 1.80 Nucleated RBC % 0 Sodium 136 Potassium 3.9 Chloride 102 Carbon Dioxide 31.0 Anion Gap 3 L BUN 15 Creatinine 0.56 Estim Creat Clear Calc 43.63 Est GFR (MDRD) Af Amer 135 Est GFR (MDRD) Non-Af 111 BUN/Creatinine Ratio 26.9 H Glucose [address] Yeimy Montano-orthopedics Operations: None Procedures: None Summary of Care Provided: The patient is a 78 year old F with a past medical history of hyperlipidemia, hypertension, TIA, chronic anticoagulation with Eliquis and paroxysmal atrial fibrillation who presented to the emergency department at [facility] on 05/18/2019 after falling face first on her driveway when she was running out to water her hicks. She did not have her cane or her front wheel walker with her at the time of the fall. CT scan of the head was negative for acute bleed at [facility]. An x-ray of the left hand showed fractures of the fourth and fifth metacarpals on the left hand. Sodium was low at 126 and IV fluids were administered. She was taking hydrochlorothiazide for hypertension as an outpatient. On physical examination she had periorbital ecchymosis and ecchymosis of the left side of her face. Marked ecchymosis and swelling of the left hand standing up above the wrist. On 05/19/2019 showed the sodium to be repleted at 136 and the BUN was 11 with a creatinine of 0.63. Telemetry during her admission showed normal sinus rhythm with no significant ectopy. She was seen in consultation by orthopedics who recommended ice for 15 to 20 minutes every 1-2 hours while awake, elevation of the left upper extremity and follow-up with Dr. Montano in the office in 5 to 7 days. She was given a sling prior to discharge. Additional PT was recommended however she stated she just finished PT for loss of balance in April and did not feel she needed to go back. she was able to ambulate for 25 ft with a FWW prior to discharge and she lives with her dtr who can assist her. She was given a RX for Ultram 50 mg tabs, #20, and instructed to take 25-50 mg every 4 hours as needed for pain. PHYSICAL EXAM: GENERAL: alert, oriented X 3, Cooperative, NAD ORAL: moist mucosa, no mucosal lesions NECK: No JVD, supple, trachea midline LUNGS: CTA, symmetric chest expansion HEART: RRR, Normal S1 and S2, no rub, no gallop ABDOMEN: soft, NT, ND, BS present, no guarding with palpation EXTREMITIES: The LUE distal to the elbow is ecchymotic and there is considerable swelling in the hand. Radial pulse is 3/3 and she has intact sensation. SKIN: No rashes, no breakdown NEUROLOGIC: no focal neurologic deficits PSYCH: appropriate, normal affect, pleasant This note was generated with [employer] dictation software. It may contain incorrect words, spelling, and punctuation that were not noted in checking the note before signing. Patient Problems: Active and Suspected Problems (Last Reviewed 05/18/19 @ 15:32 by Shay Thorpe MD) Dehydration (Acute) Fall (Acute) Hand fracture, left (Acute) Left 4th and 5th metacarpal neck fractures of undetermined age - Physical Exam Vital Signs Temp Pulse Resp BP Pulse Ox 98.0 F 69 18 100/55 L 92 05/20/19 08:23 05/20/19 11:50 05/20/19 08:23 05/20/19 08:23 05/20/19 08:23 Oxygen Flow Rate (L/min) 2 Oxygen Delivery Method Room Air Weight: 160 lb 11.472 oz Body Mass Index (BMI) 25.2 Intake and Output for Last 24 Hours 05/18/19 05/19/19 05/20/19 23:59 23:59 23:59 Intake Total 1268 / 1268 2021 920 / 920 Balance 1268 / 1268 2021 920 / 920 Laboratory Tests Past 24 Hrs 05/20/19 05/20/19 05:45 05:45 WBC 8.2 RBC 4.15 L Hgb 13.1 Hct 39.9 MCV 96.1 MCH 31.6 MCHC 32.8 RDW Std Deviation 45.1 H RDW Coeff of Crystal 12.8 Plt Count 246 MPV 9.9 Immature Gran % (Auto) 0.500 Neut % (Auto) 66.8 Lymph % (Auto) 21.9 [place] % (Auto) 7.4 Eos % (Auto) 2.9 Baso % (Auto) 0.5 Absolute Neuts (auto) 5.5 Absolute Lymphs (auto) 1.80 Nucleated RBC % 0 Sodium 136 Potassium 3.9 Chloride 102 Carbon Dioxide 31.0 Anion Gap 3 L BUN 15 Creatinine 0.56 Estim Creat Clear Calc 43.63 Est GFR (MDRD) Af Amer 135 Est GFR (MDRD) Non-Af 111 BUN/Creatinine Ratio 26.9 H Glucose 81 Calcium 9.4 Discharge Activity: Use Walker Keep extremity elevated above heart level: Left Arm Call your doctor if you observe: Fever of 101 or Higher, Coldness, Increased Pain, Numbness or Tingling, Dizziness, Fainting spells, Uncontrolled pain Home Medications: Medications to take at Discharge alendronate 35 mg tablet 35 mg PO QWEEK 84 Days #12 tab 01/15/18 calcium carbonate-vitamin D3 600 mg calcium-200 unit capsule 1 cap PO BID cap 01/15/18 levothyroxine 50 mcg tablet 50 mcg PO QDAY 90 Days #90 tab 01/15/18 simvastatin 40 mg tablet 40 mg PO QHS 90 Days #90 tab 01/15/18 hydrochlorothiazide 25 mg tablet 25 mg PO QDAY 90 Days #90 tab 01/18/18 Acetaminophen [Tylenol] 1,000 mg PO Q8H PRN PRN 07/05/18 Apixaban [Eliquis] 5 mg PO BID 07/05/18 Sotalol Hydrochloride [Betapace (Beta Alyssia)] 80 mg PO BID 05/18/19 traMADol [Ultram (G)] 25 - 50 mg PO Q6H PRN PRN 7 Days #20 tablet 05/20/19 Following Prescrptions Were Given to Patient: traMADol [Ultram (G)] 25 - 50 mg PO Q6H PRN PRN 7 Days #20 tablet PRN Reason: Pain Transmission Status: Sent to [facility] #69 Primary Care Physician: Martine Chappell MD [Primary Care Provider] - Please follow up with your Primary Care Physician in: as needed Please Follow Up With: Destiny Montano DO When: 5-7 days Minutes spent on discharge:: 30 Patient Condition:: Good Medical Necessity - Tobacco Use Smoking Status: Former smoker Tobacco Use: Non-smoker Meaningful Use Info Meaningful Use Diagnoses (Choose all that apply): None applicable Code Visit Inpatient E&M: 73776 Disch Hosp
== END 2019-05-20 13:26 | disposition home or self-care (01) | DRG 563 ==
PROVIDERS: Admitting Provider Internal Medicine; Family Provider Family Medicine; PCP Family Medicine; Referring Provider Internal Medicine; Visit Provider Internal Medicine
DX: S62.365A Nondisplaced fracture of neck of fourth metacarpal bone, left hand, initial encounter for closed fracture (principal); E87.1 Hypo-osmolality and hyponatremia; S62.367A Nondisplaced fracture of neck of fifth metacarpal bone, left hand, initial encounter for closed fracture; I48.0 Paroxysmal atrial fibrillation; T50.2X5A Adverse effect of carbonic-anhydrase inhibitors, benzothiadiazides and other diuretics, initial encounter; I10 Essential (primary) hypertension; E03.9 Hypothyroidism, unspecified; M81.0 Age-related osteoporosis without current pathological fracture; E78.2 Mixed hyperlipidemia; W01.0XXA Fall on same level from slipping, tripping and stumbling without subsequent striking against object, initial encounter; Y93.H2 Activity, gardening and landscaping; Y92.017 Garden or yard in single-family (private) house as the place of occurrence of the external cause; Z79.01 Long term (current) use of anticoagulants; Z66 Do not resuscitate; Z79.83 Long term (current) use of bisphosphonates; Z86.73 Personal history of transient ischemic attack (TIA), and cerebral infarction without residual deficits; Z87.891 Personal history of nicotine dependence; S00.83XA Contusion of other part of head, initial encounter; E86.0 Dehydration; S09.90XA Unspecified injury of head, initial encounter
CPT/HCPCS: 36415; 73130; 80048; 81050; 82436; 82570; 83935; 84133; 84300; 85025; 97110; 97162; 97165; 97760; 99251; A4216; G0463

== ENCOUNTER → 2019-05-28 | Outpatient (CLI) | payer MEDICARE, OTHER, SELFPAY ==
[2019-05-18 14:28] VITALS: BMI 25.2
[2019-05-28 14:31] LABS: Anion Gap 4 (5-15); BUN 14 mg/dL (7-18); BUN/Creat Ratio 22.5 RATIO (10-20); Calcium,Total 9.9 mg/dL (8.5-10.1); Chloride 101 mmol/L (98-107); Creatinine, Serum 0.62 mg/dL (0.55-1.02); EST Glomerular Filtration Rate 98 mL/min (>60); Est Glom Filt Rate - Afr Amer 119 mL/min (>60); Glucose 80 mg/dL (74-106); Potassium 4.5 mmol/L (3.5-5.1); Sodium Level 135 mmol/L (136-145)
== END | disposition home or self-care (01) ==
LOC: MFPLAB 11:30
PROVIDERS: Family Provider Family Medicine; PCP Family Medicine; Referring Provider Family Medicine; Visit Provider Family Medicine
DX: E87.1 Hypo-osmolality and hyponatremia (principal)
CPT/HCPCS: 36415; 80048

== ENCOUNTER → 2019-06-11 09:51 | Outpatient (CLI) | payer MEDICARE, OTHER, SELFPAY ==
[2019-05-18 14:28] VITALS: BMI 25.2
[2019-06-11 13:18] LABS: Anion Gap 5 (5-15); BUN 6 mg/dL (7-18); BUN/Creat Ratio 8.3 RATIO (10-20); Chloride 101 mmol/L (98-107); Creatinine, Serum 0.72 mg/dL (0.55-1.02); EST Glomerular Filtration Rate 83 mL/min (>60); Est Glom Filt Rate - Afr Amer 100 mL/min (>60); Glucose 99 mg/dL (74-106); Potassium 4.2 mmol/L (3.5-5.1); Sodium Level 135 mmol/L (136-145)
== END ==
PROVIDERS: Family Provider Family Medicine; PCP Family Medicine; Referring Provider Family Medicine; Visit Provider Family Medicine
DX: E87.1 Hypo-osmolality and hyponatremia (principal)
CPT/HCPCS: 36415; 80048

== ENCOUNTER 2019-12-03 15:06 | Inpatient (IN) | payer MEDICARE, OTHER, SELFPAY ==
[2019-09-26 12:12] VITALS: BMI 25.2
[2019-12-03 15:07] VITALS: BP 139/76; PULSE 76; RESP 21; TEMP 36.6; O2SAT 90; BMI 24.3
--- NOTE | 2019-12-03 15:53 | EKG12_ITS ---
Test Reason : SOB Blood Pressure : / mmHG Vent. Rate : 075 BPM Atrial Rate : 075 BPM P-R Int : 188 ms QRS Dur : 088 ms QT Int : 362 ms P-R-T Axes : 067 -09 066 degrees QTc Int : 404 ms Normal sinus rhythm Moderate voltage criteria for LVH, may be normal variant Cannot rule out Septal infarct , age undetermined Abnormal ECG Confirmed by DELIA CUEVAS ([id number]), associate entertainment editor GLORY JOSEPH ([id number]) on 12/04/2019 2:23:36 PM Referred By: SELMA Confirmed By:DELIA CUEVAS
[2019-12-03 16:31] VITALS: O2SAT 92
[2019-12-03] MEDS: Ipratropium/Albuterol Sulfate 3 ML AMPUL.NEB INHALATION ×2 (16:57→21:25)
[2019-12-03] MEDS: Albuterol 2.5 MG/3 ML VIAL.NEB. INHALATION ×2 (16:57)
[2019-12-03 17:07] LABS: Absolute Lymphocyte Count 1.73 X10^3/uL (0.83-4.51); Absolute Neutrophil Count 8.2 X10^3/uL (2.0-7.7); Basophil# 0.07 X10^3/uL; Basophil% 0.6 % (0-1); Eosinophil# 0.16 X10^3/uL; Eosinophils% 1.5 % (0-5); Hematocrit 45.3 % (37-47); Hemoglobin 14.8 g/dL (12.0-15.0); Lymphocyte # 1.73 X10^3/ul (4.0); Lymphocyte % 15.9 % (19-41); Mean Corp Hgb Conc 32.7 g/dL (32-36); Mean Corpuscular Volume 98.1 fL (81-99); Mean Platelet Vol. 10.7 fl (6.2-12.0); Monocyte# 0.63 X10^3/uL; Monocyte% 5.8 % (0-10); NRBC Flagged by Analyzer 0 % (0-5); Neutrophil # 8.19 X10^3/uL (2.7-7.7); Neutrophil % 75.1 % (47-70); Platelet Count 200 K/mm3 (150-450); RBC Distribution Width CV 14.5 % (11.6-14.6); RBC Distribution Width SD 52.2 fl (35.1-43.9); Red Blood Count 4.62 M/mm3 (4.2-5.4); White Blood Count 10.9 K/mm3 (4.4-11.0)
[2019-12-03 17:13] VITALS: PULSE 73; RESP 22
--- NOTE | 2019-12-03 17:20 | RAD_ITS ---
STUDY: X-RAY CHEST REASON FOR EXAM: Female, 79 years old. SOB TECHNIQUE: PA and lateral views of the chest. COMPARISON: PA and lateral chest x-ray October 17, 2012 FINDINGS: There is stable hyperinflation of the lungs consistent with chronic obstructive lung disease (COPD). No acute infiltrate. There is no demonstrated pleural abnormality. Normal size heart. Normal mediastinum and sonia. Normal visualized pulmonary arteries. Normal visualized aortic arch and descending thoracic aorta. There are stable multilevel degenerative changes of the visualized thoracic spine. Stable mild anterior wedging of the T8 vertebra and a mildly exaggerated mid dorsal kyphosis. 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 There is no demonstrated abnormality of the visualized soft tissue structures of the upper abdomen. RAD/Chest PA and Lateral IMPRESSION: Hyperexpanded, consistent with COPD. No acute pneumonic infiltrate or CHF. Electronically Signed: Juan Jose Mendez MD at 17:55 EST , Service support ,
[2019-12-03 17:28] LABS: Anion Gap 3 (5-15); BUN 12 mg/dL (7-18); BUN/Creat Ratio 16.9 RATIO (10-20); Calcium,Total 10.8 mg/dL (8.5-10.1); Chloride 105 mmol/L (98-107); Creatinine, Serum 0.71 mg/dL (0.55-1.02); EST Glomerular Filtration Rate 84 mL/min (>60); Est Glom Filt Rate - Afr Amer 101 mL/min (>60); Estimated Creatinine Clearance 42.91 ml/min; Glucose 105 mg/dL (74-106); Sodium Level 139 mmol/L (136-145)
[2019-12-03 17:34] LABS: BNP,B-Type NATRIURETIC PEPTIDE 36.7 pg/mL (0-100)
[2019-12-03 18:15] VITALS: BP 131/94; PULSE 67; RESP 27; O2SAT 96
--- NOTE | 2019-12-03 18:19 | ED.VIS.GEN ---
History of Present Illness Chief Complaint: Shortness of Breath Informant: Patient Onset: Days Context: Gradual Onset Current Severity: Moderate Maximum Severity: Moderate Narrative: Patient presents with shortness of breath and hypoxia. She is been sick for the past 2 weeks. She was seen at [facility] and admitted to observation status and treated for what sounds like a COPD exacerbation. She states she was placed on Levaquin and steroids. She is been off antibiotics and steroids in the past for 5 days. Patient states that since that time she has noted increasing shortness of breath. She went to see her PCP today for follow-up and her O2 sat was 87% on room air. She is not normally on oxygen. She does not follow with pulmonology. She denies recent fever. - Past Medical History (1) COPD (chronic obstructive pulmonary disease) Status: Chronic (2) Paroxysmal atrial fibrillation Status: Chronic (3) Essential (primary) hypertension Status: Chronic (4) Mixed hyperlipidemia Status: Chronic (5) TIA (transient ischemic attack) Status: Chronic Past Medical History - Allergies and Home Meds Allergies/Adverse Reactions: Allergies ceftriaxone [From Rocephin] Adverse Reaction (Verified 12/03/19 15:07) Hives doxycycline [From Vibramycin] Adverse Reaction (Verified 12/03/19 15:07) Hives oxycodone [From OxyContin] Adverse Reaction (Verified 12/03/19 15:07) hallucinations Primary Care Physician: Martine Chappell MD [Primary Care Provider] - Prior records reviewed: Yes Surgical History: - - Appendectomy, bilateral total knee replacement, L total hip replacement, sigmoidectomy, history of hernia surgery. Smoking Status: Former smoker - Family History Maternal Family History: Family History (Last Reviewed 09/26/19 @ 13:[address] Js Noriega MD) Mother pacemaker Daughter Arthritis Daughter CAD (coronary artery disease) Diabetes Hypertension Sister CVA (cerebral vascular accident) Family History: Reports: Dementia - Mother at age 91 w/ timers dementia, unclear onset timeline. Paternal Family History: Family History (Last Reviewed 09/26/19 @ 13:[address] Js Noriega MD) Mother pacemaker Daughter Arthritis Daughter CAD (coronary artery disease) Diabetes Hypertension Sister CVA (cerebral vascular accident) Family History: Reports: Unknown - Patient states she does not know her father's history. Review of Systems General: Denies: Chills, Fever Eyes: Denies: Visual changes - bilaterally ENT: Denies: Bilateral ear pain Cardiovascular: Denies: Chest pain Respiratory: Reports: Dyspnea, Cough Gastrointestinal: Denies: Abdominal pain, Nausea, Vomiting, Diarrhea Genitourinary: Denies: Dysuria Musculoskeletal: Denies: Swelling, Extremity Pain Neurological: Denies: Headache Hematologic: Denies: Easy bruising, Easy bleeding Allergy: Denies: Uticaria Physical Exam Vital Signs/Narrative: Vital Signs Temp Pulse Resp BP Pulse Ox 12/03/19 18:15 67 27 H 131/94 H 96 12/03/19 17:13 73 22 H 12/03/19 15:07 97.9 F 76 21 H 139/76 H 90 Inital Vital Signs reviewed: Yes General: Well nourished, Well developed Head: Normocephalic ENT: Moist mucous membranes, Nasal congestion Cardiovascular: Regular rate, Regular rhythm Respiratory: No distress, - - Diminished with rales at the left base. Mild wheezing noted. Abdomen: Soft, Nontender Extremities: Nontender Skin: Normal color, No rash Neurological: Alert, Oriented x3 Psychological: Normal affect Diagnostic/Tx/Re-eval Impressions Chest X-Ray 12/03/19 17:20 IMPRESSION: Hyperexpanded, consistent with COPD. No acute pneumonic infiltrate or CHF. Electronically Signed: Juan Jose Mendez MD at 17:55 EST , Service support , 12/03/19 17:20 Chest PA and Lateral [RAD] Stat Laboratory Results 12/03/19 12/03/19 12/03/19 16:54 16:54 16:54 WBC 10.9 RBC 4.62 Hgb 14.8 Hct 45.3 MCV 98.1 MCH 32.0 MCHC 32.7 RDW Std Deviation 52.2 H RDW Coeff of Crystal 14.5 Plt Count 200 MPV 10.7 Immature Gran % (Auto) 1.100 H Neut % (Auto) 75.1 H Lymph % (Auto) 15.9 L [place] % (Auto) 5.8 Eos % (Auto) 1.5 Baso % (Auto) 0.6 Absolute Neuts (auto) 8.2 H Absolute Lymphs (auto) 1.73 Nucleated RBC % 0 Sodium 139 Potassium 4.0 Chloride 105 Carbon Dioxide 31.0 Anion Gap 3 L BUN 12 Creatinine 0.71 Estim Creat Clear Calc 42.91 Est GFR (MDRD) Af Amer 101 Est GFR (MDRD) Non-Af 84 BUN/Creatinine Ratio 16.9 Glucose 105 Calcium 10.8 H Troponin I < 0.015 B-Natriuretic Peptide 36.7 - EKG Initial EKG Interpretation: Sinus Rhythm - Sinus at 75 with no acute ischemia. - Medical Decision Making Patient was given DuoNeb treatments here. On repeat evaluation she does report improvement in her breathing. She still has mild rales at the left base. She will be given a dose of steroid and Zithromax. Patient has failed outpatient therapy and was hypoxic today. She is currently requiring 2 L nasal cannula. She will be admitted for further treatment. ED Disposition - Plan for ED Patient: Disposition: Acute Care Hospital [facility] Diagnosis: COPD exacerbation Referrals: Martine Chappell MD [Primary Care Provider] -
[2019-12-03] MEDS: 0.9% Normal Saline 1,000 ML 150 ML IV (18:24)
[2019-12-03] MEDS: MethylPREDNISolone 125 MG/2 ML Vial IV (18:24)
--- NOTE | 2019-12-03 18:37 | HP.PCM_ITS ---
<Rebecca Unger - Last Filed: 12/03/19 18:58> Problem List (1) COPD (chronic obstructive pulmonary disease) Status: Chronic (2) COPD exacerbation Status: Acute (3) Paroxysmal atrial fibrillation Status: Chronic (4) Essential (primary) hypertension Status: Chronic (5) Mixed hyperlipidemia Status: Chronic (6) TIA (transient ischemic attack) Status: Chronic History of Present Illness Date of Admission: 12/03/19 Chief Complaint: Shortness of breath. The patient is a 79 year old F who presents emergency room due to shortness of breath. Patient has had URI symptoms for 2 weeks. Patient was treated with Levaquin and steroids without improvement. Patient followed up with primary care physician and was noted to be hypoxic, she was referred to emergency room at that time for further evaluation. Patient reports general fatigue, wet cough and shortness of breath. She denies further fever, chills. Complains of postnasal drainage. She does not wear oxygen at home. She has been using home nebulizer treatments without improvement. She has a past medical history of COPD, hypertension, hyperlipidemia, TIA, paroxysmal atrial fibrillation on anticoagulation with Eliquis, hypothyroidism, osteoporosis. Past Medical History Past Medical History (Chronic Problems): Chronic Problems (Last Reviewed 09/26/19 @ 13:[address] Js Noriega MD) COPD (chronic obstructive pulmonary disease) (Chronic) Paroxysmal atrial fibrillation (Chronic) Essential (primary) hypertension (Chronic) Mixed hyperlipidemia (Chronic) TIA (transient ischemic attack) (Chronic) Medical History: Medical History (Last Reviewed 09/26/19 @ 13:[address] 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 Vaso vagal episode R55 Vertigo R42 Gastroenteritis K52.9 Hyponatremia E87.1 Vasovagal syncope (Resolved) R55 Allergies ceftriaxone [From Rocephin] Adverse Reaction (Verified 12/03/19 15:07) Hives doxycycline [From Vibramycin] Adverse Reaction (Verified 12/03/19 15:07) Hives oxycodone [From OxyContin] Adverse Reaction (Verified 12/03/19 15:07) hallucinations Home Medications: Ambulatory Orders Medication Instructions Recorded alendronate 35 mg tablet 35 mg PO SA 84 Days #12 tab 01/15/18 levothyroxine 50 mcg tablet 50 mcg PO DAILY 90 Days #90 tab 01/15/18 apixaban 5 mg tablet 5 mg PO BID #180 tab 07/29/19 simvastatin 40 mg tablet 40 mg PO QHS #90 tab 07/29/19 sotalol 80 mg tablet 80 mg PO BID #180 tab 10/14/19 Acetaminophen [Tylenol Arthritis] 650 mg PO DAILY PRN PRN 12/03/19 Calcium Carbonate/Vitamin D3 1 tab PO BID 12/03/19 [Calcium 600-Vit D3 200 Tablet] Surgical History: Surgical History (Last Reviewed 09/26/19 @ 13:[address] Js Noriega MD) History of appendectomy Z90.49 History of bilateral knee replacement Z96.653 History of hernia surgery Z98.890, Z87.19 Hx Sigmoidectomy Surgical History: - - Appendectomy, bilateral total knee replacement, L total hip replacement, sigmoidectomy, history of hernia surgery. 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 Paternal Family History: Family History (Last Reviewed 12/03/19 @ 18:45 by ALIS Farrell) Mother pacemaker Daughter Arthritis Daughter CAD (coronary artery disease) Diabetes Hypertension Sister CVA (cerebral vascular accident) History Items: Unknown - Patient states she does not know her father's history. Review of Systems Constitutional: Denies: Chills, Fever, Weight Change HEENT: Denies: Head Aches, Sinus Congestion, Sinus Drainage Cardiovascular: Denies: Chest Pain, Palpitations Respiratory: Reports: Cough, Shortness of Breath, Wheezing Gastrointestinal: Denies: Abdominal Pain, Nausea, Vomiting Genitourinary: Denies: Dysuria Musculoskeletal: Denies: Joint Pain, Joint Tenderness Skin: Denies: Rash, Wounds Neurological: Denies: Numbness, Tingling, Focal weakness Psychiatric: Denies: Anxiety, Depression, Homicidal Ideations, Suicidal Ideations Hematologic/ Lymphatic: Denies: Easy Bruising, Easy Bleeding VTE Information - Inpt Only VTE Present on Admission: No VTE Mechan Device Prophylaxis: None VTE Pharm Prophylaxis ordered?: No Reason prophylaxis not ordered:: Treatment Not Indicated - Patient already on Eliquis - Physical Exam Vitals/I&O's: Vital Signs Temp Pulse Resp BP Pulse Ox 97.9 F 67 27 H 131/94 H 96 12/03/19 15:07 12/03/19 18:15 12/03/19 18:15 12/03/19 18:15 12/03/19 18:15 Oxygen Flow Rate (L/min) 2 Oxygen Delivery Method Nasal Cannula Weight: 155 lb Body Mass Index (BMI) 24.3 General: Alert, Oriented x3, Cooperative HEENT: Atraumatic, PERRLA, EOMI, Normocephalic Neck: Supple, No JVD, Negative Carotid Bruits Lungs: Diminished, Rhonchi, Wheezes Cardiovascular: Regular rate, Regular Rhythm, Normal S1, Normal S2, No murmurs Abdomen: Bowel Sounds Present, Soft, Non Tender, Non-Distended Extremities: No clubbing, No cyanosis, No edema, Capillary Refill Less than 3 Seconds Skin: No rashes, No breakdown Musculoskeletal: No Tenderness to Palpation of Joints or Extremities Neurological: Cranial nerves II-XII grossly intact, Neuro grossly intact Psych/Mental Status: Normal Affect, Appropriate Laboratory Results 12/03/19 16:54: WBC 10.9, RBC 4.62, Hgb 14.8, Hct 45.3, MCV 98.1, MCH 32.0, MCHC 32.7, RDW Std Deviation 52.2 H, RDW Coeff of Crystal 14.5, Plt Count 200, MPV 10.7, Immature Gran % (Auto) 1.100 H, Neut % (Auto) 75.1 H, Lymph % (Auto) 15.9 L, [place] % (Auto) 5.8, Eos % (Auto) 1.5, Baso % (Auto) 0.6, Absolute Neuts (auto) 8.2 H, Absolute Lymphs (auto) 1.73, Nucleated RBC % 0 12/03/19 16:54: Sodium 139, Potassium 4.0, Chloride 105, Carbon Dioxide 31.0, Anion Gap 3 L, BUN 12, Creatinine 0.71, Estim Creat Clear Calc 42.91, Est GFR (MDRD) Af Amer 101, Est GFR (MDRD) Non-Af 84, BUN/Creatinine Ratio 16.9, Glucose 105, Calcium 10.8 H, Troponin I < 0.015 12/03/19 16:54: B-Natriuretic Peptide 36.7 Current Medications Sodium Chloride () 1,000 mls @ 150 mls/hr IV .Q6H40M [facility] Last Admin: 12/03/19 18:24 Dose: 150 mls/hr Documented by: Azithromycin 500 mg/ Dextrose 255 mls @ 250 mls/hr IV X1 ONE Stop: 12/03/19 19:14 Assessment/Plan All Active Problems (Last Reviewed 09/26/19 @ 13:[address] Js Noriega MD) COPD exacerbation (Acute) Dehydration (Resolved) Fall (Resolved) Hand fracture, left (Resolved) Hyponatremia (Resolved) Vasovagal syncope (Resolved) 1. Acute hypoxic respiratory insufficiency secondary to exacerbation of COPD, failed outpatient treatment with Levaquin and prednisone-chest x-ray without acute process. IV Solu-Medrol. Obtain respiratory panel. Albuterol and DuoNeb aerosols. Continue supplement oxygen to maintain O2 above 90%. Walking pulse ox prior to discharge. 2. Hypertension-stable, continue sotalol regimen. 3. Hyperlipidemia-continue statin. 4. TIA-continue Eliquis, statin. 5. Paroxysmal atrial fibrillation on anticoagulation with Eliquis-continue Eliquis, sotalol. 5. Hypothyroidism-continue Synthroid regimen. 6. Osteoporosis-on alendronate. DVT prophylaxis-Eliquis This patient was seen by ALIS Farrell under the supervision of Dr. Ruano. <Wyatt Ruano F - Last Filed: 12/03/19 19:20> History of Present Illness The patient is a 79 year old F [] Past Medical History Medical History: Medical History (Last Reviewed 09/26/19 @ 13:[address] 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 Js Noriega MD) History of appendectomy Z90.49 History of bilateral knee replacement Z96.653 History of hernia surgery Z98.890, Z87.19 Hx Sigmoidectomy - *Family History Maternal Family History: Family History (Last Reviewed 12/03/19 @ 18:45 by ALIS Farrell) Mother pacemaker Daughter Arthritis Daughter CAD (coronary artery disease) Diabetes Hypertension Sister CVA (cerebral vascular accident) Paternal Family History: Family History (Last Reviewed 12/03/19 @ 18:45 by ALIS Farrell) Mother pacemaker Daughter Arthritis Daughter CAD (coronary artery disease) Diabetes Hypertension Sister CVA (cerebral vascular accident) - Physical Exam Vitals/I&O's: Vital Signs Temp Pulse Resp BP Pulse Ox 97.9 F 67 27 H 131/94 H 96 12/03/19 15:07 12/03/19 18:15 12/03/19 18:15 12/03/19 18:15 12/03/19 18:15 Oxygen Flow Rate (L/min) 2 Oxygen Delivery Method Nasal Cannula Weight: 155 lb Body Mass Index (BMI) 24.3 Laboratory Results 12/03/19 16:54: WBC 10.9, RBC 4.62, Hgb 14.8, Hct 45.3, MCV 98.1, MCH 32.0, MCHC 32.7, RDW Std Deviation 52.2 H, RDW Coeff of Crystal 14.5, Plt Count 200, MPV 10.7, Immature Gran % (Auto) 1.100 H, Neut % (Auto) 75.1 H, Lymph % (Auto) 15.9 L, [place] % (Auto) 5.8, Eos % (Auto) 1.5, Baso % (Auto) 0.6, Absolute Neuts (auto) 8.2 H, Absolute Lymphs (auto) 1.73, Nucleated RBC % 0 12/03/19 16:54: Sodium 139, Potassium 4.0, Chloride 105, Carbon Dioxide 31.0, Anion Gap 3 L, BUN 12, Creatinine 0.71, Estim Creat Clear Calc 42.91, Est GFR (MDRD) Af Amer 101, Est GFR (MDRD) Non-Af 84, BUN/Creatinine Ratio 16.9, Glucose 105, Calcium 10.8 H, Troponin I < 0.015 12/03/19 16:54: B-Natriuretic Peptide 36.7 Current Medications Acetaminophen (Tylenol) 650 mg PO Q6H PRN PRN PRN Reason: Pain Score 1-10/Temp > 100.7 F Albuterol/Ipratropium (Duoneb) 3 ml INHALATION Q4HWA.RT [facility] Methylprednisolone (Solu-Medrol) 40 mg IV Q8 [facility] Non-Formulary Medication (Calcium Carbonate/Vitamin D3 [Calcium 600-Vit D3 200 Tablet]) 1 tab PO BID [facility] Non-Formulary Medication (Simvastatin) 40 mg PO QHS [facility] Ondansetron HCl (Zofran) 4 mg IV Q8H PRN PRN PRN Reason: NAUSEA/VOMITING Code Visit Addendum: Dr. Ruano I personally examined the patient and reviewed the chart. I agree with the above. 79-year-old female who was recently admitted to [facility] with COPD exacerbation. She was started on steroids and Levaquin and she completed that course about 5 days ago. Since completion of her course she has started feeling worse, with shortness of breath. She went to outpatient primary care doctor today and was found to have an oxygen sat of around 86% on room air therefore she was sent in for acute hypoxic respiratory insufficiency. On arrival here she was 90% on room air but placed on 2 L which seems to be helping significantly. She does have significant wheezes in her lung beatty, and she will be started on Solu-Medrol as well as duo nebs. She does have a home inhaler that she said she was using but she felt she could not get a deep enough breath in. She will likely need a prolonged taper of her steroids on discharge. Inpatient E&M: 41880 Init Hosp L2
[2019-12-03 19:16] VITALS: BMI 24.3
[2019-12-03 19:30] VITALS: BP 156/95; PULSE 78; RESP 20; TEMP 36.6; O2SAT 93
[2019-12-03 20:22] VITALS: BMI 23.3
[2019-12-03 21:25] VITALS: PULSE 65; RESP 18; O2SAT 90
[2019-12-03] MEDS: Atorvastatin Calcium 20 MG Tablet PO (22:35)
[2019-12-03] MEDS: APIXABAN 5 MG TABLET PO (22:35)
[2019-12-03] MEDS: Sotalol Hydrochloride 80 MG Tablet PO (22:35)
[2019-12-04] VITALS (11 sets, daily range): BP systolic 136–150; BP diastolic 71–84; PULSE 61–84; RESP 16–21; TEMP 36.4–36.9; O2SAT 92–95
[2019-12-04] MEDS: MELATONIN 3 MG TABLET PO (00:05)
[2019-12-04] MEDS: 0.9% Normal Saline 1,000 ML 150 ML IV (01:15)
[2019-12-04] MEDS: Levothyroxine 50 MCG Tablet PO (05:52)
[2019-12-04] MEDS: 0.9% Saline Lock 10 ML Syringe IV ×3 (05:55→21:47)
[2019-12-04] MEDS: Ipratropium/Albuterol Sulfate 3 ML AMPUL.NEB INHALATION ×4 (07:24→19:09)
[2019-12-04] MEDS: Calcium Carb/Vitamin D 1 TABLET Tablet PO ×2 (09:17→21:47)
[2019-12-04] MEDS: APIXABAN 5 MG TABLET PO ×2 (09:17→21:47)
[2019-12-04] MEDS: Sotalol Hydrochloride 80 MG Tablet PO ×2 (09:17→21:47)
--- NOTE | 2019-12-04 10:19 | PCM.PROGNOTE ---
<Rebecca Unger - Last Filed: 12/04/19 10:25> Patient Problems: Active and Suspected Problems (Last Reviewed 09/26/19 @ 13:[address] Js Noriega MD) COPD exacerbation (Acute) Subjective: Patient seen and examined. Reports improvement in cough. States she now feels dry. Continues to have shortness of breath, worse with exertion and requiring supplemental oxygen. - Physical Exam Vitals/I&O's: Vital Signs Temp Pulse Resp BP Pulse Ox 97.5 F L 62 16 148/84 H 92 12/04/19 08:00 12/04/19 08:00 12/04/19 09:29 12/04/19 08:00 12/04/19 09:29 Oxygen Flow Rate (L/min) 2 Oxygen Delivery Method Nasal Cannula Weight: 149 lb 3.2 oz Body Mass Index (BMI) 23.3 Intake and Output for Last 24 Hours 12/02/19 12/03/19 12/04/19 23:59 23:59 23:59 Intake Total 255 / 755 / 2011. Output Total 800 / 800 Balance 255 / 505 1212.5 / 1212.5 General: Alert, Oriented x3, Cooperative HEENT: Atraumatic, PERRLA, EOMI, Normocephalic Neck: Supple, No JVD, Negative Carotid Bruits Lungs: Diminished, Wheezes Cardiovascular: Regular rate, Regular Rhythm, Normal S1, Normal S2, No murmurs Abdomen: Bowel Sounds Present, Soft, Non Tender, Non-Distended Extremities: No clubbing, No cyanosis, No edema, Capillary Refill Less than 3 Seconds Skin: No rashes, No breakdown Musculoskeletal: No Tenderness to Palpation of Joints or Extremities Neurological: Cranial nerves II-XII grossly intact, Neuro grossly intact Psych/Mental Status: Normal Affect, Appropriate Laboratory Results 12/03/19 16:54: WBC 10.9, RBC 4.62, Hgb 14.8, Hct 45.3, MCV 98.1, MCH 32.0, MCHC 32.7, RDW Std Deviation 52.2 H, RDW Coeff of Crystal 14.5, Plt Count 200, MPV 10.7, Immature Gran % (Auto) 1.100 H, Neut % (Auto) 75.1 H, Lymph % (Auto) 15.9 L, [place] % (Auto) 5.8, Eos % (Auto) 1.5, Baso % (Auto) 0.6, Absolute Neuts (auto) 8.2 H, Absolute Lymphs (auto) 1.73, Nucleated RBC % 0 12/03/19 16:54: Sodium 139, Potassium 4.0, Chloride 105, Carbon Dioxide 31.0, Anion Gap 3 L, BUN 12, Creatinine 0.71, Estim Creat Clear Calc 42.91, Est GFR (MDRD) Af Amer 101, Est GFR (MDRD) Non-Af 84, BUN/Creatinine Ratio 16.9, Glucose 105, Calcium 10.8 H, Troponin I < 0.015 12/03/19 16:54: B-Natriuretic Peptide 36.7 Current Medications Acetaminophen (Tylenol) 650 mg PO Q6H PRN PRN PRN Reason: Pain Score 1-10/Temp > 100.7 F Al Hydroxide/Mg Hydroxide (Mylanta Ii) 30 ml PO Q6H PRN PRN PRN Reason: Gastric Burning Albuterol/Ipratropium (Duoneb) 3 ml INHALATION Q4HWA.RT [facility] Last Admin: 12/04/19 07:24 Dose: 3 ml Documented by: Apixaban (Eliquis) 5 mg PO BID [facility] Last Admin: 12/04/19 09:17 Dose: 5 mg Documented by: Atorvastatin Calcium (Lipitor) 20 mg PO QHS [facility] Last Admin: 12/03/19 22:35 Dose: 20 mg Documented by: Calcium/Vitamin D (Os-Donald 500mg + D) 1 tablet PO BID [facility] Last Admin: 12/04/19 09:17 Dose: 1 tablet Documented by: Famotidine (Pepcid) 20 mg PO BID [facility] Glucagon () 1 mg IM .X1 PRN PRN Reason: Hypoglycemia Heparin Sodium (Porcine) (Heparin Na) 5,000 unit SC Q8 [facility] Dextrose (Dextrose 10%-Water) 250 mls @ 999 mls/hr IV .Q16M PRN; Protocol PRN Reason: HYPOGLYCEMIA Levothyroxine Sodium (Synthroid) 50 mcg PO DAILY@0600 [facility] Last Admin: 12/04/19 05:52 Dose: 50 mcg Documented by: Melatonin (Melatonin) 3 mg PO QHS PRN PRN Last Admin: 12/04/19 00:05 Dose: 3 mg Documented by: Methylprednisolone (Solu-Medrol) 40 mg IV Q8 [facility] Last Admin: 12/04/19 05:53 Dose: 40 mg Documented by: Morphine Sulfate () 2 mg IV Q3H PRN PRN PRN Reason: Pain Score 6-10/10 Ondansetron HCl (Zofran) 4 mg IV Q8H PRN PRN PRN Reason: NAUSEA/VOMITING Sodium Chloride () 10 - 40 ml IV UD PRN PRN Reason: SALINE FLUSH Last Admin: 12/04/19 05:55 Dose: 10 ml Documented by: Sotalol HCl (Betapace (G)) 80 mg PO BID [facility] Last Admin: 12/04/19 09:17 Dose: 80 mg Documented by: Medical Necessity - Tobacco Use Smoking Status: Former smoker Tobacco Use: Cigarettes Assessment/Plan All Active Problems (Last Reviewed 09/26/19 @ 13:[address] Js Noriega MD) COPD exacerbation (Acute) Dehydration (Resolved) Fall (Resolved) Hand fracture, left (Resolved) Hyponatremia (Resolved) Vasovagal syncope (Resolved) 1. Acute hypoxic respiratory insufficiency secondary to exacerbation of COPD, failed outpatient treatment with Levaquin and prednisone-chest x-ray without acute process. IV Solu-Medrol. Obtain respiratory panel. Albuterol and DuoNeb aerosols. Continue supplement oxygen to maintain O2 above 90%. Walking pulse ox prior to discharge. Add Flonase nightly for postnasal drainage. 2. Hypertension-stable, continue sotalol regimen. 3. Hyperlipidemia-continue statin. 4. TIA-continue Eliquis, statin. 5. Paroxysmal atrial fibrillation on anticoagulation with Eliquis-continue Eliquis, sotalol. 5. Hypothyroidism-continue Synthroid regimen. 6. Osteoporosis-on alendronate. DVT prophylaxis-Eliquis This patient was seen by ALIS Farrell under the supervision of Dr. Batista. <Jade Batista - Last Filed: 12/04/19 16:21> - Physical Exam Vitals/I&O's: Vital Signs Temp Pulse Resp BP Pulse Ox 98.4 F 70 19 H 146/76 H 94 12/04/19 14:00 12/04/19 14:35 12/04/19 14:35 12/04/19 14:00 12/04/19 14:00 Oxygen Flow Rate (L/min) 2 Oxygen Delivery Method Nasal Cannula Weight: 67.676 kg Body Mass Index (BMI) 23.3 Intake and Output for Last 24 Hours 12/02/19 12/03/19 12/04/19 23:59 23:59 23:59 Intake Total 255 / 755 2011.5 / 2011.5 Output Total 800 / 800 Balance 255 / 505 1212.5 / 1212.5 Microbiology Past 72 Hours 12/04/19 10:50 Mucosa - Nose Respiratory Panel (PCR) - Final Rhinovirus Laboratory Results 12/03/19 16:54: WBC 10.9, RBC 4.62, Hgb 14.8, Hct 45.3, MCV 98.1, MCH 32.0, MCHC 32.7, RDW Std Deviation 52.2 H, RDW Coeff of Crystal 14.5, Plt Count 200, MPV 10.7, Immature Gran % (Auto) 1.100 H, Neut % (Auto) 75.1 H, Lymph % (Auto) 15.9 L, [place] % (Auto) 5.8, Eos % (Auto) 1.5, Baso % (Auto) 0.6, Absolute Neuts (auto) 8.2 H, Absolute Lymphs (auto) 1.73, Nucleated RBC % 0 12/03/19 16:54: Sodium 139, Potassium 4.0, Chloride 105, Carbon Dioxide 31.0, Anion Gap 3 L, BUN 12, Creatinine 0.71, Estim Creat Clear Calc 42.91, Est GFR (MDRD) Af Amer 101, Est GFR (MDRD) Non-Af 84, BUN/Creatinine Ratio 16.9, Glucose 105, Calcium 10.8 H, Troponin I < 0.015 12/03/19 16:54: B-Natriuretic Peptide 36.7 Current Medications Acetaminophen (Tylenol) 650 mg PO Q6H PRN PRN PRN Reason: Pain Score 1-10/Temp > 100.7 F Al Hydroxide/Mg Hydroxide (Mylanta Ii) 30 ml PO Q6H PRN PRN PRN Reason: Gastric Burning Albuterol/Ipratropium (Duoneb) 3 ml INHALATION Q4HWA.RT [facility] Last Admin: 12/04/19 14:35 Dose: 3 ml Documented by: Apixaban (Eliquis) 5 mg PO BID [facility] Last Admin: 12/04/19 09:17 Dose: 5 mg Documented by: Atorvastatin Calcium (Lipitor) 20 mg PO QHS [facility] Last Admin: 12/03/19 22:35 Dose: 20 mg Documented by: Calcium/Vitamin D (Os-Donald 500mg + D) 1 tablet PO BID [facility] Last Admin: 12/04/19 09:17 Dose: 1 tablet Documented by: Famotidine (Pepcid) 20 mg PO BID [facility] Last Admin: 12/04/19 10:59 Dose: 20 mg Documented by: Fluticasone Propionate (Flonase Nasal [place]) 2 spray NASAL QHS [facility] Glucagon () 1 mg IM .X1 PRN PRN Reason: Hypoglycemia Dextrose (Dextrose 10%-Water) 250 mls @ 999 mls/hr IV .Q16M PRN; Protocol PRN Reason: HYPOGLYCEMIA Levothyroxine Sodium (Synthroid) 50 mcg PO DAILY@0600 [facility] Last Admin: 12/04/19 05:52 Dose: 50 mcg Documented by: Melatonin (Melatonin) 3 mg PO QHS PRN PRN Last Admin: 12/04/19 00:05 Dose: 3 mg Documented by: Methylprednisolone (Solu-Medrol) 40 mg IV Q8 [facility] Last Admin: 12/04/19 14:56 Dose: 40 mg Documented by: Morphine Sulfate () 2 mg IV Q3H PRN PRN PRN Reason: Pain Score 6-10/10 Ondansetron HCl (Zofran) 4 mg IV Q8H PRN PRN PRN Reason: NAUSEA/VOMITING Sodium Chloride () 10 - 40 ml IV UD PRN PRN Reason: SALINE FLUSH Last Admin: 12/04/19 14:56 Dose: 10 ml Documented by: Sotalol HCl (Betapace (G)) 80 mg PO BID [facility] Last Admin: 12/04/19 09:17 Dose: 80 mg Documented by: Assessment/Plan This patient was seen in conjunction with Rebecca Unger NP. I have independently interviewed and examined the patient and reviewed pertinent historical, laboratory, and other data. Please refer to her note for patient's presentation, findings, and recommendations. 79-year-old female with past medical history of hypertension, hyperlipidemia, TIA, COPD who was admitted with progressive shortness of breath. She recently completed treatment with Levaquin and prednisone. Patient was seen and examined. She feels improved. Remains on 2 L of oxygen. Patient was seen and examined. No acute events overnight. Vitals were reviewed -stable Physical Exam: Gen: Comfortable, not pale, not jaundiced, alert oriented x3 CVS:HS I +II, regular, no murmurs RESP: Diminished at lung bases, no wheezes heard GI: BS present and normal, nontender, no palpable organs EXT:No edema Labs reviewed: ASSESSMENT: 1. Acute COPD exacerbation 2. Hypoxia secondary to #1 3. Hypertension 4. Hyperlipidemia 5. TIA 6. Paroxysmal atrial fibrillation 7. Hypothyroidism 8. Osteoporosis Meds reviewed Plan: Continue on IV steroids, breathing treatments Evaluate for ambulatory oxygen tomorrow Code Visit Inpatient E&M: 73737 Subs Hosp L2
[2019-12-04] MEDS: Famotidine 20 MG Tablet PO ×2 (10:59→21:47)
--- NOTE | 2019-12-04 11:10 | CASEMGMT ---
RN CM Face to Face with patient for initial transition planning/care coordination assessment. RN CM introduced self and role at [facility]. Patient lying in bed, alert and oriented. Patient willing to participate in assessment and is able to answer all questions appropriately. Care providers, pharmacy, and demographics verified. Patient wishes to discharge home, denies need for home health at this time. Patient states she has no further needs or concerns at this time. CM to follow for discharge planning needs that may arise. 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 Patient independent with self care, daughter assists with cooking and cleaning. Transportation: self, daughter DME/HHC: Patient has cane and walker at home. Patient currently on oxygen, will monitor for need for home oxygen. Disposition Plan: Patient to discharge home with family support and follow-up plans in place. Carolina GORDON, RN, CM
--- NOTE | 2019-12-04 13:29 | NURSING ---
Student documentation reviewed.
[2019-12-04] MEDS: Fluticasone 0.05% 1 SPRAY NASAL.SRY 2 SPRAY NASAL (21:47)
[2019-12-04] MEDS: Atorvastatin Calcium 20 MG Tablet PO (21:47)
[2019-12-05] VITALS (9 sets, daily range): BP systolic 131–151; BP diastolic 71–92; PULSE 68–92; RESP 16–20; TEMP 36.4–36.6; O2SAT 94–95
[2019-12-05] MEDS: Ipratropium/Albuterol Sulfate 3 ML AMPUL.NEB INHALATION ×5 (02:18→19:30)
[2019-12-05 05:58] LABS: Absolute Lymphocyte Count 0.51 X10^3/uL (0.83-4.51); Absolute Neutrophil Count 15.8 X10^3/uL (2.0-7.7); Basophil# 0.02 X10^3/uL; Basophil% 0.1 % (0-1); Hematocrit 37.9 % (37-47); Hemoglobin 12.4 g/dL (12.0-15.0); Lymphocyte # 0.51 X10^3/ul (4.0); Mean Corp Hgb Conc 32.7 g/dL (32-36); Mean Corpuscular Hgb 32.2 pg (27.0-32.0); Mean Corpuscular Volume 98.4 fL (81-99); Mean Platelet Vol. 10.6 fl (6.2-12.0); Monocyte# 0.47 X10^3/uL; Monocyte% 2.8 % (0-10); NRBC Flagged by Analyzer 0 % (0-5); Neutrophil # 15.84 X10^3/uL (2.7-7.7); Neutrophil % 92.8 % (47-70); POSITIVE DIFFERENTIAL YES; Platelet Count 175 K/mm3 (150-450); RBC Distribution Width CV 14.3 % (11.6-14.6); RBC Distribution Width SD 51.7 fl (35.1-43.9); Red Blood Count 3.85 M/mm3 (4.2-5.4); White Blood Count 17.1 K/mm3 (4.4-11.0)
[2019-12-05] MEDS: 0.9% Saline Lock 10 ML Syringe IV ×3 (06:00→21:30)
[2019-12-05] MEDS: Levothyroxine 50 MCG Tablet PO (06:01)
[2019-12-05 06:27] LABS: Differential Indicated SCAN CRITERIA MET
[2019-12-05 06:32] LABS: AST(SGOT) 15 U/L (15-37); Alanine Aminotransfer ALT/SGPT 33 U/L (13-56); Albumin, Serum 2.7 g/dL (3.2-5.0); Alkaline Phosphatase 56 U/L (45-117); Anion Gap 5 (5-15); BUN 14 mg/dL (7-18); BUN/Creat Ratio 20.6 RATIO (10-20); Calcium,Total 9.3 mg/dL (8.5-10.1); Chloride 107 mmol/L (98-107); Creatinine, Serum 0.68 mg/dL (0.55-1.02); EST Glomerular Filtration Rate 88 mL/min (>60); Est Glom Filt Rate - Afr Amer 107 mL/min (>60); Estimated Creatinine Clearance 42.91 ml/min; Globulin 2.6 g/dL (2.2-4.2); Glucose 152 mg/dL (74-106); Potassium 3.6 mmol/L (3.5-5.1); Protein, Total 5.3 g/dL (6.4-8.2); Sodium Level 140 mmol/L (136-145)
[2019-12-05 06:43] LABS: Toxic Granulation RARE
[2019-12-05] MEDS: Calcium Carb/Vitamin D 1 TABLET Tablet PO ×2 (09:42→21:30)
[2019-12-05] MEDS: Famotidine 20 MG Tablet PO ×2 (09:42→21:30)
[2019-12-05] MEDS: Sotalol Hydrochloride 80 MG Tablet PO ×2 (09:42→21:30)
[2019-12-05] MEDS: APIXABAN 5 MG TABLET PO ×2 (09:43→21:29)
--- NOTE | 2019-12-05 14:48 | PN_ITS ---
Patient Problems: Active and Suspected Problems (Last Reviewed 09/26/19 @ 13:[address] Js Noriega MD) COPD exacerbation (Acute) Reason for Visit: Follow-up on acute COPD exacerbation Subjective: Patient was seen and examined. She feels much improved. Remains on 2 L of oxygen. Patient is not on oxygen at home. Vitals/I&O's: Vital Signs Temp Pulse Resp BP Pulse Ox 97.7 F L 78 16 135/71 H 94 12/05/19 09:30 12/05/19 10:59 12/05/19 10:59 12/05/19 09:30 12/05/19 09:30 Oxygen Flow Rate (L/min) 1 Oxygen Delivery Method Nasal Cannula Weight: 73.5 kg Body Mass Index (BMI) 23.3 Intake and Output for Last 24 Hours 12/03/19 12/04/19 12/05/19 23:59 23:59 23:59 Intake Total 255 / 755 2012.5 / 2312.5 600 / 600 Output Total 800 / 900 100 / 100 Balance 255 / 505 1212.5 / 1412.5 500 / 500 General: Alert, Oriented x3, Cooperative, No apparent distress HEENT: Atraumatic, PERRLA, EOMI, Normocephalic Oral: Moist Mucosa Neck: Supple Lungs: No wheeze, Diminished Cardiovascular: Regular rate, Regular Rhythm, Normal S1, Normal S2, No murmurs Abdomen: Bowel Sounds Present, Soft, Non Tender Extremities: No edema Skin: No rashes, No breakdown Musculoskeletal: No Tenderness to Palpation of Joints or Extremities Lymphatic: No Cervical, Supraclavicular, or Inguinal Adenopathy Neurological: Cranial nerves II-XII grossly intact, Neuro grossly intact Psych/Mental Status: Normal Affect, Appropriate Microbiology Past 72 Hours 12/04/19 10:50 Mucosa - Nose Respiratory Panel (PCR) - Final Rhinovirus Laboratory Results 12/05/19 05:35: WBC 17.1 H, RBC 3.85 L, Hgb 12.4, Hct 37.9, MCV 98.4, MCH 32.2 H , MCHC 32.7, RDW Std Deviation 51.7 H, RDW Coeff of Crystal 14.3, Plt Count 175, MPV 10.6, Immature Gran % (Auto) 1.300 H, Neut % (Auto) 92.8 H, Lymph % (Auto) 3.0 L , [place] % (Auto) 2.8, Eos % (Auto) 0.0, Baso % (Auto) 0.1, Absolute Neuts (auto) 15.8 H, Absolute Lymphs (auto) 0.51 L, Nucleated RBC % 0, Differential Comment , Toxic Granulation RARE 12/05/19 05:35: Sodium 140, Potassium 3.6, Chloride 107, Carbon Dioxide 28.0, Anion Gap 5, BUN 14, Creatinine 0.68, Estim Creat Clear Calc 42.91, Est GFR (MDRD) Af Amer 107, Est GFR (MDRD) Non-Af 88, BUN/Creatinine Ratio 20.6 H, Glucose 152 H, Calcium 9.3, Total Bilirubin 0.50, AST 15, ALT 33, Alkaline Phosphatase 56, Total Protein 5.3 L, Albumin 2.7 L, Globulin 2.6, Albumin/Globulin Ratio 1.0 Current Medications Acetaminophen (Tylenol) 650 mg PO Q6H PRN PRN PRN Reason: Pain Score 1-10/Temp > 100.7 F Al Hydroxide/Mg Hydroxide (Mylanta Ii) 30 ml PO Q6H PRN PRN PRN Reason: Gastric Burning Albuterol/Ipratropium (Duoneb) 3 ml INHALATION Q4HWA.RT [facility] Last Admin: 12/05/19 14:47 Dose: 3 ml Documented by: Apixaban (Eliquis) 5 mg PO BID [facility] Last Admin: 12/05/19 09:43 Dose: 5 mg Documented by: Atorvastatin Calcium (Lipitor) 20 mg PO QHS [facility] Last Admin: 12/04/19 21:47 Dose: 20 mg Documented by: Calcium/Vitamin D (Os-Donald 500mg + D) 1 tablet PO BID [facility] Last Admin: 12/05/19 09:42 Dose: 1 tablet Documented by: Famotidine (Pepcid) 20 mg PO BID [facility] Last Admin: 12/05/19 09:42 Dose: 20 mg Documented by: Fluticasone Propionate (Flonase Nasal [place]) [facility] Last Admin: 12/04/19 21:47 Dose: 2 spray Documented by: Glucagon () 1 mg IM .X1 PRN PRN Reason: Hypoglycemia Dextrose (Dextrose 10%-Water) 250 mls @ 999 mls/hr IV .Q16M PRN; Protocol PRN Reason: HYPOGLYCEMIA Levothyroxine Sodium (Synthroid) 50 mcg PO DAILY@0600 [facility] Last Admin: 12/05/19 06:01 Dose: 50 mcg Documented by: Melatonin (Melatonin) 3 mg PO QHS PRN PRN Last Admin: 12/04/19 00:05 Dose: 3 mg Documented by: Methylprednisolone (Solu-Medrol) 40 mg IV Q8 [facility] Last Admin: 12/05/19 13:57 Dose: 40 mg Documented by: Morphine Sulfate () 2 mg IV Q3H PRN PRN PRN Reason: Pain Score 6-10/10 Ondansetron HCl (Zofran) 4 mg IV Q8H PRN PRN PRN Reason: NAUSEA/VOMITING Sodium Chloride () 10 - 40 ml IV UD PRN PRN Reason: SALINE FLUSH Last Admin: 12/05/19 13:57 Dose: 10 ml Documented by: Sotalol HCl (Betapace (G)) 80 mg PO BID [facility] Last Admin: 12/05/19 09:42 Dose: 80 mg Documented by: STROKE Vital Signs/Narrative: Vital Signs Pulse Resp 12/05/19 10:59 78 16 Medical Necessity - Tobacco Use Smoking Status: Former smoker Tobacco Use: Cigarettes Assessment/Plan All Active Problems (Last Reviewed 09/26/19 @ 13:[address] Js Noriega MD) COPD exacerbation (Acute) Dehydration (Resolved) Fall (Resolved) Hand fracture, left (Resolved) Hyponatremia (Resolved) Vasovagal syncope (Resolved) 1. Acute COPD exacerbation, improving, continue on IV steroids, breathing treatments 2. Hypoxia secondary to #1, remains on 2L oxygen, will encourage use of incentive spirometer, wean off oxygen 3. Hypertension/hyperlipidemia/Paroxysmal atrial fibrillation/TIA, stable, continue on apixaban, sotalol 4. Hypothyroidism, continue on levothyroxine 5. DVT PPx- on apixaban 6. Disposition: possible DC tomorrow, will be evaluated for ambulatory oxygen in am Inpatient E&M: 81001 Subs Hosp L2
[2019-12-05] MEDS: Atorvastatin Calcium 20 MG Tablet PO (21:29)
[2019-12-05] MEDS: Fluticasone 0.05% 1 SPRAY NASAL.SRY 2 SPRAY NASAL (21:38)
[2019-12-06] VITALS (8 sets, daily range): BP systolic 140–146; BP diastolic 70–84; PULSE 58–88; RESP 16–18; TEMP 36.3–36.4; O2SAT 89–95
[2019-12-06] MEDS: MELATONIN 3 MG TABLET PO (00:25)
[2019-12-06] MEDS: 0.9% Saline Lock 10 ML Syringe IV ×3 (04:59→13:38)
[2019-12-06] MEDS: Levothyroxine 50 MCG Tablet PO (05:00)
[2019-12-06] MEDS: Ipratropium/Albuterol Sulfate 3 ML AMPUL.NEB INHALATION ×2 (07:23→11:12)
[2019-12-06 08:35] LABS: AST(SGOT) 22 U/L (15-37); Alanine Aminotransfer ALT/SGPT 41 U/L (13-56); Albumin, Serum 3.1 g/dL (3.2-5.0); Alkaline Phosphatase 62 U/L (45-117); Anion Gap 6 (5-15); BUN 16 mg/dL (7-18); BUN/Creat Ratio 22.5 RATIO (10-20); Calcium,Total 9.6 mg/dL (8.5-10.1); Chloride 105 mmol/L (98-107); Creatinine, Serum 0.71 mg/dL (0.55-1.02); EST Glomerular Filtration Rate 84 mL/min (>60); Est Glom Filt Rate - Afr Amer 101 mL/min (>60); Estimated Creatinine Clearance 42.91 ml/min; Glucose 182 mg/dL (74-106); Potassium 3.5 mmol/L (3.5-5.1); Protein, Total 6.1 g/dL (6.4-8.2); Sodium Level 138 mmol/L (136-145)
[2019-12-06] MEDS: Sotalol Hydrochloride 80 MG Tablet PO (08:41)
[2019-12-06] MEDS: Famotidine 20 MG Tablet PO (08:41)
[2019-12-06] MEDS: Calcium Carb/Vitamin D 1 TABLET Tablet PO (08:41)
[2019-12-06] MEDS: APIXABAN 5 MG TABLET PO (08:41)
[2019-12-06] MEDS: Acetaminophen 325 MG Tablet 650 MG PO (08:41)
--- NOTE | 2019-12-06 10:16 | DCINST_ITS ---
- Discharge Diagnoses Current Active Problems: Current Active and Chronic Problems (Last Reviewed 09/26/19 @ 13:[address] Js Noriega MD) COPD exacerbation (Acute) Reason(s) for Visit for Discharge Instructions: Acute COPD exacerbation You will use the following diet at home:: Cardiac Your food should be the consistency of: Regular Your liquids should be the consistency of: Regular/Thin Discharge Activity: Return to Normal Activity Instructions: What Is COPD?, Treatments for COPD, COPD: Using Inhalers, Care for COPD Additional Instructions: Complete your prednisone taper. 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 Allergies/Adverse Reactions: Allergies ceftriaxone [From Rocephin] Allergy (Verified 12/03/19 19:41) Hives doxycycline [From Vibramycin] Allergy (Verified 12/03/19 19:39) Hives oxycodone [From OxyContin] Allergy (Verified 12/03/19 19:39) hallucinations Medications to take at Discharge alendronate 35 mg tablet 35 mg PO SA 84 Days #12 tab 01/15/18 levothyroxine 50 mcg tablet 50 mcg PO DAILY 90 Days #90 tab 01/15/18 apixaban 5 mg tablet 5 mg PO BID #180 tab 07/29/19 simvastatin 40 mg tablet 40 mg PO QHS #90 tab 07/29/19 sotalol 80 mg tablet 80 mg PO BID #180 tab 10/14/19 Acetaminophen [Tylenol Arthritis] 650 mg PO DAILY PRN PRN 12/03/19 Calcium Carbonate/Vitamin D3 [Calcium 600-Vit D3 200 Tablet] 1 tab PO BID 12/03/19 Prednisone 10 mg PO DAILY 12 Days #30 tab 12/06/19 The following prescriptions were given: Prednisone 10 mg PO DAILY 12 Days #30 tab Transmission Status: Pending to [id number] - [place], Primary Care Physician: Martine Chappell MD [Primary Care Provider] - Test Results: Test results from this visit will be discussed in further detail at your follow- up appointment, if applicable. Please Follow Up With: Martine Chappell MD When: 1 to 2 weeks Proposed Discharge Date: 12/06/19
--- NOTE | 2019-12-06 10:28 | DS.PCM_ITS ---
Discharge Date and Diagnosis Date of Admission: 12/03/19 Date of Discharge: 12/06/19 - Primary Discharge Diagnosis Active and Suspected Problems (Last Reviewed 09/26/19 @ 13:[address] Js Noriega MD) COPD exacerbation (Acute) secondary to Acute Rhinovirus bronchitis Hypoxia - Secondary Discharge Diagnosis Chronic Problems (Last Reviewed 09/26/19 @ 13:[address] Js Noriega MD) COPD (chronic obstructive pulmonary disease) (Chronic) Paroxysmal atrial fibrillation (Chronic) Essential (primary) hypertension (Chronic) Mixed hyperlipidemia (Chronic) TIA (transient ischemic attack) (Chronic) Hospital Course and Treatment Imaging Results: Clinical Impression(s) from Imaging Studies Chest X-Ray 12/03/19 17:20 IMPRESSION: Hyperexpanded, consistent with COPD. No acute pneumonic infiltrate or CHF. Electronically Signed: Juan Jose Mendez MD at 17:55 EST , Service support , None Operations: None Procedures: None Summary of Care Provided: The patient is a 79 year old F past medical history of COPD, hypertension, hyperlipidemia, paroxysmal atrial fibrillation who presented with progressive shortness of breath. Patient had said she had upper respiratory symptoms 2 days prior to admission. She was given Levaquin as prednisone with improvement by her primary care doctor. She had followed up with her primary care doctor and was found to be hypoxic and felt emergency department. At baseline, patient does not wear oxygen at home. She was admitted to the [facility] floor and managed as acute COPD exacerbation. Respiratory panel was positive for rhinovirus. She was managed with IV steroids, treatments with improvement. She was encouraged to use incentive spirometer. Patient was off oxygen at the time of discharge. She will follow- up with her primary care doctor within 2 weeks as well as with a esthetician. Subjective: On the day of discharge, patient was seen and examined. Datto improved. No new complains. Did not qualify for oxygen on ambulation. Objective: Physical exam: General: Alert, Oriented x3, Cooperative, No apparent distress HEENT: Atraumatic, PERRLA, EOMI, Normocephalic Oral: Moist Mucosa Neck: Supple Lungs: No wheeze, Diminished Cardiovascular: Regular rate, Regular Rhythm, Normal S1, Normal S2, No murmurs Abdomen: Bowel Sounds Present, Soft, Non Tender Extremities: No edema Skin: No rashes, No breakdown Musculoskeletal: No Tenderness to Palpation of Joints or Extremities Lymphatic: No Cervical, Supraclavicular, or Inguinal Adenopathy Neurological: Cranial nerves II-XII grossly intact, Neuro grossly intact Psych/Mental Status: Normal Affect, Appropriate - Physical Exam Vitals/I&O's: Vital Signs Temp Pulse Resp BP Pulse Ox 97.6 F L 86 16 145/81 H 94 12/06/19 08:20 12/06/19 08:20 12/06/19 08:20 12/06/19 08:20 12/06/19 08:43 Oxygen Flow Rate (L/min) 1 Oxygen Delivery Method Room Air Weight: 71.1 kg Body Mass Index (BMI) 23.3 Intake and Output for Last 24 Hours 12/04/19 12/05/19 12/06/19 23:59 23:59 23:59 Intake Total 2012.5 / 2312.5 600 / 800 440 / 440 Output Total 800 / 900 100 / 100 Balance 1212.5 / 1412.5 500 / 700 440 / 440 Microbiology Past 72 Hours 12/04/19 10:50 Mucosa - Nose Respiratory Panel (PCR) - Final Rhinovirus Laboratory Results 12/06/19 08:05: Sodium 138, Potassium 3.5, Chloride 105, Carbon Dioxide 27.0, Anion Gap 6, BUN 16, Creatinine 0.71, Estim Creat Clear Calc 42.91, Est GFR (MDRD) Af Amer 101, Est GFR (MDRD) Non-Af 84, BUN/Creatinine Ratio 22.5 H, Glucose 182 H, Calcium 9.6, Total Bilirubin 0.70, AST 22, ALT 41, Alkaline Phosphatase 62, Total Protein 6.1 L, Albumin 3.1 L, Globulin 3.0, Albumin/Globulin Ratio 1.0 Current Medications Acetaminophen (Tylenol) 650 mg PO Q6H PRN PRN PRN Reason: Pain Score 1-10/Temp > 100.7 F Last Admin: 12/06/19 08:41 Dose: 650 mg Documented by: Al Hydroxide/Mg Hydroxide (Mylanta Ii) 30 ml PO Q6H PRN PRN PRN Reason: Gastric Burning Albuterol/Ipratropium (Duoneb) 3 ml INHALATION Q4HWA.RT [facility] Last Admin: 12/06/19 07:23 Dose: 3 ml Documented by: Apixaban (Eliquis) 5 mg PO BID [facility] Last Admin: 12/06/19 08:41 Dose: 5 mg Documented by: Atorvastatin Calcium (Lipitor) 20 mg PO QHS [facility] Last Admin: 12/05/19 21:29 Dose: 20 mg Documented by: Calcium/Vitamin D (Os-Donald 500mg + D) 1 tablet PO BID [facility] Last Admin: 12/06/19 08:41 Dose: 1 tablet Documented by: Famotidine (Pepcid) 20 mg PO BID [facility] Last Admin: 12/06/19 08:41 Dose: 20 mg Documented by: Fluticasone Propionate (Flonase Nasal [place]) [facility] Last Admin: 12/05/19 21:38 Dose: 2 spray Documented by: Glucagon () 1 mg IM .X1 PRN PRN Reason: Hypoglycemia Dextrose (Dextrose 10%-Water) 250 mls @ 999 mls/hr IV .Q16M PRN; Protocol PRN Reason: HYPOGLYCEMIA Levothyroxine Sodium (Synthroid) 50 mcg PO DAILY@0600 [facility] Last Admin: 12/06/19 05:00 Dose: 50 mcg Documented by: Melatonin (Melatonin) 3 mg PO QHS PRN PRN Last Admin: 12/06/19 00:25 Dose: 3 mg Documented by: Methylprednisolone (Solu-Medrol) 40 mg IV Q8 [facility] Last Admin: 12/06/19 05:00 Dose: 40 mg Documented by: Morphine Sulfate () 2 mg IV Q3H PRN PRN PRN Reason: Pain Score 6-10/10 Ondansetron HCl (Zofran) 4 mg IV Q8H PRN PRN PRN Reason: NAUSEA/VOMITING Sodium Chloride () 10 - 40 ml IV UD PRN PRN Reason: SALINE FLUSH Last Admin: 12/06/19 08:42 Dose: 10 ml Documented by: Sotalol HCl (Betapace (G)) 80 mg PO BID [facility] Last Admin: 12/06/19 08:41 Dose: 80 mg Documented by: Discharge Diet: Low fat/ Low Cholesterol, 2000 mg Sodium Diet Discharge Activity: Return to Normal Activity Home Medications: Medications to take at Discharge alendronate 35 mg tablet 35 mg PO SA 84 Days #12 tab 01/15/18 levothyroxine 50 mcg tablet 50 mcg PO DAILY 90 Days #90 tab 01/15/18 apixaban 5 mg tablet 5 mg PO BID #180 tab 07/29/19 simvastatin 40 mg tablet 40 mg PO QHS #90 tab 07/29/19 sotalol 80 mg tablet 80 mg PO BID #180 tab 10/14/19 Acetaminophen [Tylenol Arthritis] 650 mg PO DAILY PRN PRN 12/03/19 Calcium Carbonate/Vitamin D3 [Calcium 600-Vit D3 200 Tablet] 1 tab PO BID 12/03/19 Prednisone 10 mg PO DAILY 12 Days #30 tab 12/06/19 Following Prescrptions Were Given to Patient: Prednisone 10 mg PO DAILY 12 Days #30 tab Transmission Status: Received by [id number] - [place], Primary Care Physician: Martine Chappell MD [Primary Care Provider] - Please Follow Up With: Martine Chappell MD When: 1 to 2 weeks Patient Instructions: What Is COPD?, Care for COPD, COPD: Using Inhalers, Treatments for COPD Disposition: Home Minutes spent on discharge:: 40 Patient Condition:: Stable Medical Necessity - Tobacco Use Smoking Status: Former smoker Tobacco Use: Cigarettes Meaningful Use Info Meaningful Use Diagnoses (Choose all that apply): None applicable Inpatient E&M: 96435 Disch Hosp
--- NOTE | 2019-12-09 16:09 | CASEMGMT ---
DC DATE: DC DISPOSITION: Home DC DIAGNOSIS: COPD LACE/STRATA: 08/04 F/U APPTS MADE PRIOR TO DC: yes PRESCRIPTIONS ACQUIRED BY PT: yes Intro role of CM to patient via phone. Pt states she is doing much better. Reviewed prescription. Pt states she has and is taking as prescribed. Reviewed f/u appt with Dr. Salas. Pt is aware and no barriers presently to going to this appt. No further concerns. No care improvement suggestions given. RN CM thanked pt for using [facility]. Daphney LAMBERTN RN ACM
== END 2019-12-06 16:07 | disposition home or self-care (01) | DRG 202 ==
LOC: ED 18:23 → MS3 12-04 07:12
PROVIDERS: Emergency Medicine; Admitting Provider Family Medicine; Emergency Provider Emergency Medicine; PCP Family Medicine; Visit Provider Internal Medicine
DX: J20.6 Acute bronchitis due to rhinovirus (principal); J44.1 Chronic obstructive pulmonary disease with (acute) exacerbation; J44.0 Chronic obstructive pulmonary disease with (acute) lower respiratory infection; R06.89 Other abnormalities of breathing; R09.02 Hypoxemia; I10 Essential (primary) hypertension; E03.9 Hypothyroidism, unspecified; M81.0 Age-related osteoporosis without current pathological fracture; E78.2 Mixed hyperlipidemia; I48.0 Paroxysmal atrial fibrillation; Z86.73 Personal history of transient ischemic attack (TIA), and cerebral infarction without residual deficits; Z79.01 Long term (current) use of anticoagulants; Z79.83 Long term (current) use of bisphosphonates; Z87.891 Personal history of nicotine dependence
CPT/HCPCS: 36415; 71046; 80048; 80053; 83880; 84484; 85025; 87040; 87633; 93005; 94640; 94664; 99283; J7030; A4216

== ENCOUNTER → 2020-02-19 10:05 | Outpatient (CLI) | payer MEDICARE, OTHER, SELFPAY ==
[2020-02-19 12:34] LABS: Absolute Lymphocyte Count 1.22 X10^3/uL (0.83-4.51); Absolute Neutrophil Count 3.3 X10^3/uL (2.0-7.7); Basophil# 0.06 X10^3/uL; Basophil% 1.1 % (0-1); Eosinophil# 0.24 X10^3/uL; Eosinophils% 4.6 % (0-5); Hematocrit 43.4 % (37-47); Hemoglobin 13.9 g/dL (12.0-15.0); Lymphocyte # 1.22 X10^3/ul (4.0); Lymphocyte % 23.1 % (19-41); Mean Corpuscular Hgb 32.8 pg (27.0-32.0); Mean Corpuscular Volume 102.4 fL (81-99); Mean Platelet Vol. 10.8 fl (6.2-12.0); Monocyte# 0.46 X10^3/uL; Monocyte% 8.7 % (0-10); NRBC Flagged by Analyzer 0 % (0-5); Neutrophil # 3.27 X10^3/uL (2.7-7.7); Neutrophil % 62.1 % (47-70); Platelet Count 243 K/mm3 (150-450); RBC Distribution Width CV 13.3 % (11.6-14.6); RBC Distribution Width SD 50.6 fl (35.1-43.9); Red Blood Count 4.24 M/mm3 (4.2-5.4); White Blood Count 5.3 K/mm3 (4.4-11.0)
[2020-02-19 12:52] LABS: ALB/GLOB Ratio 1.1 RATIO (0.9-2.4); AST(SGOT) 27 U/L (15-37); Alanine Aminotransfer ALT/SGPT 34 U/L (13-56); Albumin, Serum 3.3 g/dL (3.2-5.0); Alkaline Phosphatase 66 U/L (45-117); Anion Gap 5 (5-15); BUN 16 mg/dL (7-18); BUN/Creat Ratio 22.8 RATIO (10-20); Calcium,Total 9.9 mg/dL (8.5-10.1); Chloride 107 mmol/L (98-107); EST Glomerular Filtration Rate 85 mL/min (>60); Est Glom Filt Rate - Afr Amer 103 mL/min (>60); Globulin 3.1 g/dL (2.2-4.2); Glucose 83 mg/dL (74-106); Potassium 4.1 mmol/L (3.5-5.1); Protein, Total 6.4 g/dL (6.4-8.2); Sodium Level 139 mmol/L (136-145); Thyroid Stim Hormone (TSH) 1.05 uIU/mL (0.358-3.74)
== END ==
PROVIDERS: PCP Family Medicine; Referring Provider Family Medicine; Visit Provider Family Medicine
DX: R60.0 Localized edema (principal)
CPT/HCPCS: 36415; 80053; 84443; 85025

== ENCOUNTER → 2020-10-05 10:49 | Outpatient (CLI) | payer MEDICARE, OTHER, SELFPAY ==
[2020-05-14 09:53] VITALS: BMI 27.0
--- NOTE | 2020-10-05 10:53 | RAD_ITS ---
STUDY: X-RAY - LUMBAR SPINE REASON FOR EXAM: Female, 79 years old. Back pain TECHNIQUE: 5 view(s) of the lumbar spine were obtained including oblique views. COMPARISON: Comparison is made with prior study dated 12/10/2012. FINDINGS: Normal lumbar lordosis. There is no substantial scoliosis. There is a normal alignment of the vertebrae. There is multilevel endplate spondylosis of the lumbar vertebrae. There is multi-level degenerative disc disease with multi-level disc space narrowing. There is atherosclerotic calcification of the abdominal aorta without a demonstrated aneurysm. RAD/L/S Spine Min 4 Views IMPRESSION: Degenerative changes of the spine, as detailed above. Electronically Signed: Derrick Burnette, at 10:57 EST , Service support ,
== END ==
PROVIDERS: PCP Family Medicine; Referring Provider Family Medicine; Visit Provider Family Medicine
DX: M54.9 Dorsalgia, unspecified (principal)
CPT/HCPCS: 72110

== ENCOUNTER 2020-10-17 21:01 | Inpatient (IN) | payer MEDICARE, OTHER, SELFPAY ==
[2020-05-14 09:53] VITALS: BMI 27.0
--- NOTE | 2020-10-17 20:40 | PCS.PANDOC ---
PANDEMIC DOCUMENTATION INITIATED: Date: 10/17/20 Time: 20:40
[2020-10-17 21:12] VITALS: BP 154/89; PULSE 61; RESP 18; TEMP 36.9; O2SAT 94; BMI 28.3
--- NOTE | 2020-10-17 21:14 | HP.PCM_ITS ---
Problem List (1) Blurry vision, right eye Status: Acute (2) Paroxysmal atrial fibrillation Status: Chronic (3) Essential (primary) hypertension Status: Chronic (4) Mixed hyperlipidemia Status: Chronic (5) TIA (transient ischemic attack) Status: Chronic (6) COPD (chronic obstructive pulmonary disease) Status: Chronic History of Present Illness Date of Admission: 10/17/20 Chief Complaint: Blurry vision of the right side. The patient is a 79 year old F with a significant past medical history of hypertension; hyperlipidemia; hypothyroidism; tachycardic?bradycardic syndrome; asthma; A. fib on Eliquis; IBS; chronic COPD; prior TIA evaluation with history of amaurosis fugax right eye; history of vasovagal syncope who presented to outside hospital ED ([facility]) secondary to history of sudden right eye vision changes with no associated headache, numbness, focal weakness with the ED noted visual beatty intact. Her symptoms started on the same day of presentation, specifically at noon. It resolved only to reoccur and then completely resolved. All in all her visual symptoms lasted about 10 minutes. NIH scale was 0 at outside hospital ED. EKG at outside hospital showed sinus rhythm with no acute evidence of ischemia. Covid test was negative. CT head at outside hospital showed no acute intracranial findings but moderate microvascular ischemic and chronic changes were noted. Chest x-ray showed right upper nodule otherwise no acute cardiopulmonary findings. Past Medical History Past Medical History (Chronic Problems): Chronic Problems (Last Reviewed 10/17/20 @ 21:[address] Antonino Pabon MD) Paroxysmal atrial fibrillation (Chronic) Essential (primary) hypertension (Chronic) Mixed hyperlipidemia (Chronic) TIA (transient ischemic attack) (Chronic) COPD (chronic obstructive pulmonary disease) (Chronic) Medical History: Medical History (Last Reviewed 10/17/20 @ 21:[address] Antonino Pabon MD) Paroxysmal atrial fibrillation (Chronic) I48.0 Essential (primary) hypertension (Chronic) I10 Mixed hyperlipidemia (Chronic) E78.2 TIA (transient ischemic attack) (Chronic) G45.9 COPD (chronic obstructive pulmonary disease) (Chronic) J44.9 Amaurosis fugax of right eye G45.3 COPD (chronic obstructive pulmonary disease) J44.9 IBS (irritable bowel syndrome) K58.9 Tachy-chikis syndrome I49.5 Vaso vagal episode R55 Vertigo R42 Gastroenteritis K52.9 Hyponatremia E87.1 Vasovagal syncope (Resolved) R55 Allergies ceftriaxone [From Rocephin] Allergy (Verified 05/14/20 09:53) Hives doxycycline [From Vibramycin] Allergy (Verified 05/14/20 09:53) Hives oxycodone [From OxyContin] Allergy (Verified 05/14/20 09:53) hallucinations Home Medications: Ambulatory Orders Medication Instructions Recorded alendronate 35 mg tablet 35 mg PO SA 84 Days #12 tab 01/15/18 levothyroxine 50 mcg tablet 50 mcg PO DAILY 90 Days #90 tab 01/15/18 apixaban 5 mg tablet 5 mg PO BID #180 tab 07/29/19 Acetaminophen [Tylenol Arthritis] 650 mg PO DAILY PRN PRN 12/03/19 Calcium Carbonate/Vitamin D3 1 tab PO BID 12/03/19 [Calcium 600-Vit D3 200 Tablet] albuterol sulfate 90 mcg/actuation 2 puff INHALATION Q6H PRN 05/14/20 aerosol inhaler sotalol 80 mg tablet 80 mg PO BID #180 tab 10/14/20 Esomeprazole Mag Trihydrate 40 mg PO DAILY 10/17/20 [Nexium] Simvastatin 40 mg PO DINNER 10/17/20 Surgical History: Surgical History (Last Reviewed 10/17/20 @ 21:[address] Antonino Pabon MD) History of appendectomy Z90.49 History of bilateral knee replacement Z96.653 History of hernia surgery Z98.890, Z87.19 Hx Sigmoidectomy Surgical History: - - Appendectomy, bilateral total knee replacement, L total hip replacement, sigmoidectomy, history of hernia surgery. 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 Antonino Pabon MD) Mother pacemaker Daughter Arthritis Daughter CAD (coronary artery disease) Diabetes Hypertension Sister CVA (cerebral vascular accident) History Items: Dementia - Mother at age 91 w/ timers dementia, unclear onset timeline. Paternal Family History: Family History (Last Reviewed 10/17/20 @ 21:[address] Antonino Pabon MD) Mother pacemaker Daughter Arthritis Daughter CAD (coronary artery disease) Diabetes Hypertension Sister CVA (cerebral vascular accident) History Items: Unknown - Patient states she does not know her father's history. Review of Systems Constitutional: Denies: Chills, Fever, Weight Change HEENT: Denies: Head Aches, Sinus Congestion, Sinus Drainage Cardiovascular: Denies: Chest Pain, Palpitations Respiratory: Denies: Cough, Shortness of breath at rest, Sputum production Gastrointestinal: Denies: Abdominal Pain, Nausea, Vomiting Genitourinary: Denies: Dysuria Musculoskeletal: Denies: Joint Pain, Joint Tenderness Skin: Denies: Rash, Wounds Neurological: Reports: Blurred vision - Right eye. Denies: Focal weakness, Numbness, Tingling Psychiatric: Denies: Anxiety, Depression, Homicidal Ideations, Suicidal Ideations Hematologic/ Lymphatic: Denies: Easy Bruising, Easy Bleeding VTE Information - Inpt Only VTE Present on Admission: No VTE Mechan Device Prophylaxis: None VTE Pharm Prophylaxis ordered?: No Reason prophylaxis not ordered:: Treatment Not Indicated - On Eliquis for A. fib which will be continued. Patient Problems: Active and Suspected Problems (Last Reviewed 10/17/20 @ 21:[address] Antonino Pabon MD) Blurry vision, right eye (Acute) - Physical Exam Vitals/I&O's: Vital Signs Temp Pulse Resp BP Pulse Ox 98.4 F 61 18 154/89 H 94 10/17/20 21:12 10/17/20 21:12 10/17/20 21:12 10/17/20 21:12 10/17/20 21:12 Oxygen Delivery Method Room Air Body Mass Index (BMI) 27.0 General: Alert, Oriented x3, Cooperative HEENT: Atraumatic, PERRLA, EOMI, Normocephalic Neck: Supple, No JVD, Negative Carotid Bruits Lungs: Clear to auscultation, Normal air movement Cardiovascular: Regular rate, Normal S1, Normal S2, No murmurs Abdomen: Bowel Sounds Present, Soft, Non Tender Extremities: No edema, Capillary Refill Less than 3 Seconds Skin: No rashes, No breakdown Musculoskeletal: No Tenderness to Palpation of Joints or Extremities Neurological: Cranial nerves II-XII grossly intact, Deep Tendon Reflexes 2+/4 and Symmetrical, Neuro grossly intact, Motor Exam 5/5 strength throughout, - - No dysmetria Psych/Mental Status: Normal Affect, Appropriate Assessment/Plan All Active Problems (Last Reviewed 10/17/20 @ 21:[address] Antonino Pabon MD) Blurry vision, right eye (Acute) COPD exacerbation (Resolved) Dehydration (Resolved) Fall (Resolved) Hand fracture, left (Resolved) Hyponatremia (Resolved) Vasovagal syncope (Resolved) The patient is a 79 year old F with a significant past medical history of hypertension; hyperlipidemia; hypothyroidism; tachycardic?bradycardic syndrome; asthma; A. fib on Eliquis; IBS; chronic COPD; prior TIA evaluation with history of amaurosis fugax right eye; history of vasovagal syncope who presented to outside [facility]) secondary to history of sudden transient right eye vision changes with no associated headache, numbness, focal weakness with intact visual field. Blurry vision NINDS NIH Scale was 0 CT of the head was unrevealing -Check Hba1c, Lipid level Physical therapy, and occupational therapy to work with patient. N.p.o. until bedside swallow eval. Daily aspirin. Home statin continued. Home Eliquis continued. Permissive hypertension. Control blood pressure with labetalol for systolic blood pressure of more than 220 or diastolic blood pressure of more than 120. MRI brain ordered. CTA head and neck ordered. Creatinine at outside hospital was 0.8. Echocardiogram ordered. Atrial fibrillation Eliquis continued. Placed on telemetry. Pulmonary nodule Radiologist impression of chest x-ray from outside hospital: 8 mm nodular density now seen at the right upper lobe. Low dense CT chest recommended within the next 4 weeks for further assessment. Longitudinal follow-up outpatient. Discussed with patient Hypertension Denies history of blood pressure although hypertension is under medical profile and a blood pressure was elevated on presentation. Permissive hypertension as above. Trend blood pressures. Hypothyroidism On Synthroid which will be continued. COPD Stable DVT prophylaxis On Eliquis for A. fib; continued. OBSV E&M: 78307 Initial observation care L2
[2020-10-17 21:16] VITALS: PULSE 58
[2020-10-17 21:19] VITALS: BMI 28.3
--- NOTE | 2020-10-17 21:33 | CT_ITS ---
HISTORY: BLURRED VISION on right/CVA. Hx of HTN, HLD, hypothyroid, afib(on Eliquis). Noncontrast images included TECHNIQUE: CT angiogram of the brain was performed without and with IV contrast. CT angiogram images of the neck were obtained with IV contrast. 3D reconstructions were reviewed to aid in vascular evaluation. NASCET criteria using the distal internal carotid arteries were used for evaluation of stenoses. A radiation dose optimization technique was used for this scan. IV Contrast dosage and agent: 100 ml [id number] Number of images including paperwork: 1133 COMPARISON: 06/03/2018 CTA head: FINDINGS: BRAIN: No acute hemorrhage or mass. No definite acute infarct; MRI more sensitive. White matter hypodensity is nonspecific but most commonly seen with chronic ischemic changes. Generalized atrophy. VENTRICULAR SYSTEM: No hydrocephalus. PARANASAL SINUSES AND MASTOIDS: No air-fluid level in the imaged extent. ORBITS: Unremarkable imaged extent. SKELETON AND SOFT TISSUES: Calvarium intact. ASPECTS score: 10 INTERNAL CAROTID ARTERIES: No significant stenosis of the intracranial segments. ANTERIOR CEREBRAL ARTERIES: No significant stenosis of the visualized segments. ANTERIOR COMMUNICATING ARTERY: Present. MIDDLE CEREBRAL ARTERIES: No significant stenosis of the visualized segments. VERTEBRAL ARTERIES: No significant stenosis of the intradural/visualized segments. BASILAR ARTERY: No significant stenosis. POSTERIOR CEREBRAL ARTERIES: No significant stenosis of the visualized segments. Persistent origin on the left. POSTERIOR COMMUNICATING ARTERIES: Visible on the right. No evidence of intracranial aneurysm or vascular malformation. IMPRESSION: 1. No acute intracranial abnormality. Chronic involutional and white matter changes. 2. No arterial occlusion, aneurysm or vascular malformation. CTA neck: FINDINGS: AORTIC ARCH AND BRANCHES: No dissection. RIGHT CAROTID ARTERIES: No occlusion, significant stenosis or dissection. Minimal plaque around the bifurcation. LEFT CAROTID ARTERIES: No occlusion, significant stenosis or dissection. Minimal plaque around the bifurcation. RIGHT VERTEBRAL ARTERY: No occlusion, significant stenosis or dissection. LEFT VERTEBRAL ARTERY: No occlusion, significant stenosis or dissection. NECK SOFT TISSUES: Bilateral thyroid nodules, similar to previous. LUNG APICES: Mild to moderate emphysema. BONES: Degenerative changes. CT/CTA Head AND Neck W/ Contrast IMPRESSION: No significant stenosis of the carotid or vertebral arteries. Individualized dose optimization techniques were used for this CT. at 2309 Reported and signed by: Melida Wallace MD Electronically Signed: Melida Wallace MD at 23:08 EST Tel , Service support ,
--- NOTE | 2020-10-17 21:33 | ECHOD_ITS ---
Reason For Study: TIA/CVA Procedure This was a 2D Doppler, Color Flow transthoracic echocardiogram. Exam performed portable in patient room. Left Ventricle Normal LV size. Left ventricular systolic function is normal. The estimated ejection fraction is 65 %. Stage 1 diastolic dysfunction. No regional wall motion abnormalities noted. Right Ventricle Normal RV size. Normal systolic function. Atria Normal left atrium. Normal right atrium. Bubble contrast study negative for right to left interatrial shunt. Mitral Valve There is mild mitral annular calcification. Tricuspid Valve Normal tricuspid valve. Mild tricuspid valve insufficiency. Pulmonary artery systolic pressure is 32 mmHg. Aortic Valve Trisinus/trileaflet aortic valve. Mild focal aortic valve calcification. Pulmonic Valve The pulmonic valve is not well visualized. Great Vessels Normal aortic root. The pulmonary artery is normal size. Normal inferior vena cava. Pericardium/Pleural No pericardial effusion. Medication Performed a rapid injection of agitated mix of 9 cc saline and 1cc air to assess for atrial septal defect. MMode/2D Measurements & Calculations LVIDd: 4.0 cm IVSd: 0.98 cm Ao root diam: 3.1 cm LVIDs: 2.8 cm LVPWd: 0.98 cm RVDd: 2.6 cm FS: 29.4 % LAV(MOD-bp): 40.7 ml LA A4 area: 14.5 cm2 LA dimension(2D): 3.2 cm LAV(MOD-bp) Indexed: 21.1 ml/m2 LAV(MOD-sp2): 40.1 ml LAV(MOD-sp4): 38.3 ml RA A4 area: 9.7 cm2 Time Measurements MV dec time: 0.32 sec Doppler Measurements & Calculations MV E max diego: 79.4 cm/sec Lat Peak E' Diego: 6.7 cm/sec Med Peak E' Diego: 5.9 cm/sec MV A max diego: 97.7 cm/sec E/E' lat: 11.8 E/E' med: 13.4 MV E/A: 0.81 Ao V2 max: 187.9 cm/sec LV V1 max: 154.8 cm/sec PA V2 max: 127.4 cm/sec Ao max P.1 mmHg LV V1 max P.6 mmHg Ao V2 mean: 121.7 cm/sec LV V1 mean P.5 mmHg Ao mean P.6 mmHg LV V1 mean: 111.7 cm/sec Ao V2 VTI: 29.2 cm LV V1 VTI: 30.5 cm TR max diego: 272.8 cm/sec TR max P.8 mmHg Interpretation Summary Normal LV size. Left ventricular systolic function is normal. The estimated ejection fraction is 65 %. Stage 1 diastolic dysfunction. Bubble contrast study negative for right to left interatrial shunt. Pulmonary artery systolic pressure is 32 mmHg. Ordering Physician: Antonino Pabon Referring Physician: Martine Chappell Performed By: Brandi Yates, DANY, RVT
[2020-10-18] VITALS (13 sets, daily range): BP systolic 107–154; BP diastolic 56–79; PULSE 36–75; RESP 14–18; TEMP 36.3–36.8; O2SAT 94–97; BMI 28.3
[2020-10-18] MEDS: Levothyroxine 50 MCG Tablet PO (05:10)
[2020-10-18] MEDS: Pantoprazole Sodium 40 MG Tablet PO (05:16)
[2020-10-18 08:06] LABS: Anion Gap 7 (5-15); BUN 14 mg/dL (7-18); BUN/Creat Ratio 20.3 RATIO (10-20); Calcium,Total 10.4 mg/dL (8.5-10.1); Chloride 108 mmol/L (98-107); Cholesterol 151 mg/dL (200); Creatinine, Serum 0.69 mg/dL (0.55-1.02); EST Glomerular Filtration Rate 87 mL/min (>60); Est Glom Filt Rate - Afr Amer 105 mL/min (>60); Estimated Creatinine Clearance 42.91 ml/min; Glucose 83 mg/dL (74-106); High Density Lipoprotein 63 mg/dL; Potassium 3.9 mmol/L (3.5-5.1); Sodium Level 140 mmol/L (136-145); Triglycerides 109 mg/dL; Very Low Density Lipoprotein 22 mg/dL (5-40)
--- NOTE | 2020-10-18 08:07 | PN_ITS ---
Patient Problems: Active and Suspected Problems (Last Reviewed 10/17/20 @ 21:[address] Antonino Pabon MD) Blurry vision, right eye (Acute) Reason for Visit: Blurred vision Subjective: Patient is an 79-year-old lady who presented with blurred vision. Admitted to a monitored bed where patient is currently undergoing evaluation for possible CVA Objective: GENERAL: cooperative HEENT: Atraumatic; EYES; Anicteric, Normal Conjunctiva NECK; supple, normal thyroid, RESPIRATORY: Diminished to auscultation CARDIOVASCULAR: Regular S1 S2, GI: soft, normoactive bowel sounds, : No Renal angle tenderness; EXTREMITIES: No edema, no clubbing, MUSCULOSKELETAL: no muscle waisting NEURO: Awake; no lateralizing signs. SKIN: No Rash PSYCH; Flat affect Vitals/I&O's: Vital Signs Temp Pulse Resp BP Pulse Ox 97.3 F L 67 14 154/70 H 94 10/18/20 05:00 10/18/20 07:00 10/18/20 05:00 10/18/20 05:00 10/18/20 07:15 Oxygen Delivery Method Room Air Weight: 82 kg Body Mass Index (BMI) 28.3 Intake and Output for Last 24 Hours 10/16/20 10/17/20 10/18/20 23:59 23:59 23:59 Intake Total 480 / 480 Balance 480 / 480 Laboratory Results 10/18/20 06:14: Sodium 140, Potassium 3.9, Chloride 108 H, Carbon Dioxide 25.0, Anion Gap 7, BUN 14, Creatinine 0.69, Estim Creat Clear Calc 42.91, Est GFR (MDRD) Af Amer 105, Est GFR (MDRD) Non-Af 87, BUN/Creatinine Ratio 20.3 H, Glucose 83, Calcium 10.4 H, Triglycerides 109, Cholesterol 151, LDL Cholesterol 66, VLDL Cholesterol 22, HDL Cholesterol 63 10/18/20 06:14: Hemoglobin A1c Pending Current Medications Acetaminophen (Acetaminophen 325 Mg Tablet) 650 mg PO Q6H PRN PRN PRN Reason: Pain Score 1-10/Temp > 100.7 F Albuterol Sulfate (Albuterol 2.5 Mg/3 Ml Vial.Neb.) 2.5 mg INHALATION Q4H PRN PRN PRN Reason: Breathing Alendronate Sodium (Alendronate Sodium 70 Mg Tablet) 35 mg PO SA [facility] Apixaban (Apixaban 5 Mg Tablet) 5 mg PO BID [facility] Aspirin (Aspirin 81 Mg Tab.Chew) 81 mg PO DAILY@0800 [facility] Atorvastatin Calcium (Atorvastatin Calcium 20 Mg Tablet) 20 mg PO QHS [facility] Calcium/Vitamin D (Calcium Carb/Vitamin D 1 Tablet Tablet) 1 tablet PO BID [facility] Hydralazine HCl (Hydralazine 20 Mg/Ml Vial) 5 mg IV Q30M PRN PRN Reason: to maintain BP goals Labetalol HCl (Labetalol (Prefilled) 20 Mg/4 Ml) 10 - 20 mg IV Q10M PRN PRN PRN Reason: to Maintain BP Goals Levothyroxine Sodium (Levothyroxine 50 Mcg Tablet) 50 mcg PO DAILY@0600 [facility] Last Admin: 10/18/20 05:10 Dose: 50 mcg Documented by: Melatonin (Melatonin 3 Mg Tablet) 3 mg PO QHS PRN PRN PRN Reason: INSOMNIA Ondansetron HCl (Ondansetron 4 Mg/2 Ml Vial) 4 mg IV Q8H PRN PRN PRN Reason: NAUSEA/VOMITING Pantoprazole Sodium (Pantoprazole Sodium 40 Mg Tablet) 40 mg PO DAILY [facility] Last Admin: 10/18/20 05:16 Dose: 40 mg Documented by: Senna/Docusate Sodium (Senna/Docusate Sodium 1 Tablet) 2 tablet PO BID PRN PRN PRN Reason: Constipation Sodium Chloride (0.9% Saline Lock 10 Ml Syringe) 10 - 40 ml IV UD PRN PRN Reason: SALINE FLUSH Sotalol HCl (Sotalol Hydrochloride 80 Mg Tablet) 80 mg PO BID [facility] STROKE Vital Signs/Narrative: Vital Signs Temp Pulse Resp BP Pulse Ox 10/18/20 07:15 94 10/18/20 07:00 67 10/18/20 05:00 97.3 F L 53 L 14 154/70 H 94 Medical Necessity - Tobacco Use Smoking Status: Former smoker Assessment/Plan All Active Problems (Last Reviewed 10/17/20 @ 21:[address] Antonino Pabon MD) Blurry vision, right eye (Acute) COPD exacerbation (Resolved) Dehydration (Resolved) Fall (Resolved) Hand fracture, left (Resolved) Hyponatremia (Resolved) Vasovagal syncope (Resolved) Patient is an 79-year-old lady who presented with blurred vision. Admitted to a monitored bed where patient is currently undergoing evaluation for possible CVA 1. Admission ?Admitted to a monitored bed where patient is currently undergoing evaluation for possible CVA. Initial head CT was unremarkable. MRI of the brain as well as CTA of the head and neck ordered 2. Paroxysmal atrial fibrillation -patient is on sotalol. She had previously undergone ablation as well as cardioversion. She is also on Eliquis for stroke prophylaxis 3. Hypertension - Blood pressure controlled, home medications continued with dose adjustment as needed . Dyslipidemia -Patient is on statin therapy, continued at home dose 5. Hypothyroidism - Patient is on levothyroxine home dose continued 6. Osteoporosis -patient is on alendronate 7. DVT prophylaxis -on Eliquis Advance planning; did discuss with the patient regarding advanced directives as well as CODE STATUS. Did explain the various scenarios involved ( FULL CODE, DNR CCA, DNR CCA with no intubation, and DNR CC and what each meant) patient elected to be DNR CCA no intubation. Order was placed. Time spent on discussion 18 minutes. OBSV E&M: 24144 Subsequent observation care L3 Procedures: 95256 Advncd Care Plan 30 Min
--- NOTE | 2020-10-18 09:00 | MRI_ITS ---
STUDY: MRI BRAIN WITHOUT CONTRAST REASON FOR EXAM: Female, 79 years old. vision loss rt eye for several hours yesterday, no paralysis TECHNIQUE: Standardized multiplanar fat and water weighted pulse sequences were obtained. COMPARISON: CT 10/17/2020 FINDINGS: There is moderate cerebral atrophy with widening of the extra-axial spaces and ventricular dilatation. There are multiple white matter hyperintensities, distributed throughout the deep white matter tracts of the cerebral hemispheres, consistent with moderate chronic white matter ischemic changes. There is no evidence for recent intracranial ischemia or other cause of cytotoxic edema on diffusion weighted imaging (DWI). Normal T2* images of the brain without demonstrated susceptibility artifact. There is no demonstrated hemosiderin stain. Normal bilateral basal ganglia. Normal thalami. There is no extra-axial fluid accumulation. Normal flow voids within the major intracranial circulation suggesting patency by spin echo criteria. Normal sella turcica, pituitary gland, infundibular stalk, optic chiasm and hypothalamus. Normal tectal plate and pineal gland. Normal midbrain, shefali and medulla. Normal cerebellum. Normal basal cisterns. Normal bilateral temporal bones. Normal bilateral internal auditory canals. There are bilateral ocular lens implants with otherwise normal intraorbital contents. Normal visualized paranasal sinuses. Normal calvarium and skull base. Normal visualized soft tissue structures. Normal visualized upper cervical spine. MRI/Brain without Contrast IMPRESSION: Involutional changes of the brain, as described above. No acute infarct. Electronically Signed: Doni Schmidt MD at 10:37 EST Tel , Service support ,
[2020-10-18] MEDS: 0.9% Saline Lock 10 ML Syringe IV (09:03)
[2020-10-18] MEDS: Calcium Carb/Vitamin D 1 TABLET Tablet PO ×2 (09:03→21:29)
[2020-10-18] MEDS: APIXABAN 5 MG TABLET PO ×2 (09:03→21:29)
[2020-10-18] MEDS: Sotalol Hydrochloride 80 MG Tablet PO (09:03)
[2020-10-18] MEDS: Aspirin 81 MG TAB.CHEW PO (09:03)
[2020-10-18 09:04] LABS: Hemoglobin A1c 5.5 % (3.8-5.6)
[2020-10-18] MEDS: Acetaminophen 325 MG Tablet 650 MG PO (09:04)
--- NOTE | 2020-10-18 11:52 | PCM.PN.BLA ---
Progress Note Was for patient to have been discharged home following her negative MRI however she was found to be bradycardic whilst sitting at rest with heart rate dropping to the 30s. Patient is on sotalol which she had received earlier on in the morning. Patient will be monitored continuously on telemetry STROKE Vital Signs/Narrative: Vital Signs Temp Pulse Resp BP Pulse Ox 10/18/20 09:05 97 10/18/20 09:00 98.1 F 75 16 132/62 H 97
[2020-10-18] MEDS: Atorvastatin Calcium 20 MG Tablet PO (21:29)
[2020-10-19] VITALS (7 sets, daily range): BP systolic 104–160; BP diastolic 50–77; PULSE 54–70; RESP 16–18; TEMP 36.4–36.7; O2SAT 95–96
[2020-10-19] MEDS: Levothyroxine 50 MCG Tablet PO (03:43)
[2020-10-19] MEDS: Pantoprazole Sodium 40 MG Tablet PO (03:44)
[2020-10-19 06:05] LABS: Hematocrit 41.9 % (37-47); Mean Corp Hgb Conc 33.4 g/dL (32-36); Mean Corpuscular Volume 92.9 fL (81-99); Mean Platelet Vol. 10.8 fl (6.2-12.0); Platelet Count 229 K/mm3 (150-450); RBC Distribution Width CV 12.9 % (11.6-14.6); RBC Distribution Width SD 44.1 fl (35.1-43.9); Red Blood Count 4.51 M/mm3 (4.2-5.4)
[2020-10-19 06:37] LABS: Anion Gap 5 (5-15); BUN 16 mg/dL (7-18); BUN/Creat Ratio 21.4 RATIO (10-20); Calcium,Total 10.8 mg/dL (8.5-10.1); Chloride 103 mmol/L (98-107); Creatinine, Serum 0.75 mg/dL (0.55-1.02); EST Glomerular Filtration Rate 79 mL/min (>60); Est Glom Filt Rate - Afr Amer 96 mL/min (>60); Estimated Creatinine Clearance 42.91 ml/min; Glucose 99 mg/dL (74-106); Magnesium 1.8 mg/dL (1.6-2.6); Sodium Level 135 mmol/L (136-145)
--- NOTE | 2020-10-19 07:48 | DCINST_ITS ---
- Discharge Diagnoses Current Active Problems: Current Active and Chronic Problems (Last Reviewed 10/17/20 @ 21:[address] Antonino Pabon MD) Blurry vision, right eye (Acute) Paroxysmal atrial fibrillation (Chronic) Essential (primary) hypertension (Chronic) Mixed hyperlipidemia (Chronic) TIA (transient ischemic attack) (Chronic) COPD (chronic obstructive pulmonary disease) (Chronic) You will use the following diet at home:: Cardiac Your food should be the consistency of: Regular Discharge Activity: Return to Normal Activity Weight Bearing Status: Weight bearing as tolerated Call your doctor if you observe: Fever of 101 or Higher, Shortness of breath, Dizziness, Fainting spells, Chest pain, Increased palpitations (irregular heartbeat), Uncontrolled pain Allergies/Adverse Reactions: Allergies ceftriaxone [From Rocephin] Allergy (Verified 05/14/20 09:53) Hives doxycycline [From Vibramycin] Allergy (Verified 05/14/20 09:53) Hives oxycodone [From OxyContin] Allergy (Verified 05/14/20 09:53) hallucinations Medications to take at Discharge alendronate 35 mg tablet 35 mg PO SA 84 Days #12 tab 01/15/18 levothyroxine 50 mcg tablet 50 mcg PO DAILY 90 Days #90 tab 01/15/18 apixaban 5 mg tablet 5 mg PO BID #180 tab 07/29/19 Acetaminophen [Tylenol Arthritis] 650 mg PO DAILY PRN PRN 12/03/19 Calcium Carbonate/Vitamin D3 [Calcium 600-Vit D3 200 Tablet] 1 tab PO BID 12/03/19 albuterol sulfate 90 mcg/actuation aerosol inhaler 2 puff INHALATION Q6H PRN 05/14/20 sotalol 80 mg tablet 80 mg PO BID #180 tab 10/14/20 Esomeprazole Mag Trihydrate [Nexium] 40 mg PO DAILY 10/17/20 Simvastatin 40 mg PO DINNER 10/17/20 Aspirin [Aspirin, Baby] 81 mg PO DAILY@0800 #90 tab.chew 10/18/20 The following prescriptions were given: Aspirin [Aspirin, Baby] 81 mg PO DAILY@0800 #90 tab.chew Primary Care Physician: Martine Chappell MD [Primary Care Provider] - Please follow up with your Primary Care Physician in: 1-2 WEEKS. Test Results: Test results from this visit will be discussed in further detail at your follow- up appointment, if applicable.
[2020-10-19] MEDS: Acetaminophen 325 MG Tablet 650 MG PO (08:20)
[2020-10-19] MEDS: APIXABAN 5 MG TABLET PO (08:20)
[2020-10-19] MEDS: Aspirin 81 MG TAB.CHEW PO (08:20)
[2020-10-19] MEDS: Calcium Carb/Vitamin D 1 TABLET Tablet PO (08:20)
--- NOTE | 2020-10-19 09:30 | CASEMGMT ---
This RN CM to room to complete CM assessment and pt is getting ECHO done at this time. Will attempt later. [place] RN CM
--- NOTE | 2020-10-19 10:20 | CASEMGMT ---
LIYAH PACHECO assessment: Face to Face with patient for initial transition planning/care coordination assessment. LIYAH PACHECO introduced self and role at [facility], pt voices understanding and consents to assessment at this time. Pt is sitting up in bed in no distress at this time. Pt is A/Ox4 at this time and answers all questions appropriately at this time. Care providers, pharmacy, and demographics verified at this time. Presentation: Direct admit from [facility] ED for sudden right eye vision changes Admitting dx: Blurred vision PCP: Ta Specialists: Hari, cardio; ASHLEY Pan Muller Preferred Pharmacy: [facility] Insurance: [facility] A/B, AARP Prescription Benefit: [facility] D Living Will/HPOA: Pt has LW/HPOA and they are on file at [facility] at this time. Pt's daughter, Mitzi Gonsalez, is HPOA. LNOK: Mitzi Gonsalez, daughter/HPOA Living Arrangements: Pt states her daughter lives with her in 1 story home with 3 steps in from garage and states no concerns at home at this time. Pt states is independent with ADL's. Transportation: Pt states her daughter drives and states no transportation concerns at this time. DME/HHC: Pt states has the following DME: cane, walker, rollator, grab bars, transfer bench, and shower chair. Pt states no need for any further DME at this time. Pt states has had HHC in the past and has been to [facility] in the past. Therapy states no therapy recommended for pt at this time. Pt states is currently getting OP therapy at [facility] for back pain. Pt states no concerns with going home at time of discharge. Pt states is retired. Pt states does not smoke cigarettes or drink ETOH. Pt states no further concerns/needs. CM to follow for any further discharge planning/needs. Advised pt to ask for CM if any further questions/concerns/needs arise, voices understanding. Pt Goal: Home Plan: Home [place] LIYAH PACHECO
--- NOTE | 2020-10-19 10:36 | PHA.DC.MC ---
Pharmacy Service has performed discharge medication reconciliation and counseling for this patient. The patient was counseled on the following discharge medications and changes in medications for homegoing were reviewed. 1. ASPIRIN The Reason for Use, instructions for use, and potential side effects were reviewed for all new medications. The patient's questions regarding all of their medications were answered. The patient was able to verbally demonstrate an understanding of their discharge medications. Home Medications alendronate 35 mg tablet 35 mg PO SA 84 Days #12 tab 01/15/18 levothyroxine 50 mcg tablet 50 mcg PO DAILY 90 Days #90 tab 01/15/18 apixaban 5 mg tablet 5 mg PO BID #180 tab 07/29/19 Acetaminophen [Tylenol Arthritis] 650 mg PO DAILY PRN PRN 12/03/19 Calcium Carbonate/Vitamin D3 [Calcium 600-Vit D3 200 Tablet] 1 tab PO BID 12/03/19 albuterol sulfate 90 mcg/actuation aerosol inhaler 2 puff INHALATION Q6H PRN 05/14/20 sotalol 80 mg tablet 80 mg PO BID #180 tab 10/14/20 Esomeprazole Mag Trihydrate [Nexium] 40 mg PO DAILY 10/17/20 Simvastatin 40 mg PO DINNER 10/17/20 Aspirin [Aspirin, Baby] 81 mg PO DAILY@0800 #90 tab.chew 10/18/20 The patient's discharge medication list was reviewed for discrepancies and discrepancies were resolved.
--- NOTE | 2020-10-19 11:48 | DS.PCM_ITS ---
Discharge Date and Diagnosis - Problem List Patient Problems: Active and Suspected Problems (Last Reviewed 10/17/20 @ 21:[address] Antonino Pabon MD) Blurry vision, right eye (Acute) Date of Admission: 10/17/20 Date of Discharge: 10/19/20 - Primary Discharge Diagnosis Acute Problems: Active Problems (Last Reviewed 10/17/20 @ 21:[address] Antonino Pabon MD) Blurry vision, right eye (Acute), unclear etiology, resolved, acute stroke ruled out. - Secondary Discharge Diagnosis Chronic Problems: Chronic Problems (Last Reviewed 10/17/20 @ 21:[address] Antonino Pabon MD) Paroxysmal atrial fibrillation (Chronic) Essential (primary) hypertension (Chronic) Mixed hyperlipidemia (Chronic) TIA (transient ischemic attack) (Chronic) COPD (chronic obstructive pulmonary disease) (Chronic) Hospital Course and Treatment Imaging Results: Clinical Impression(s) from Imaging Studies Head/Neck CTA 10/17/20 21:33 IMPRESSION: No significant stenosis of the carotid or vertebral arteries. Individualized dose optimization techniques were used for this CT. at 2309 Reported and signed by: Melida Wallace MD Electronically Signed: Melida Wallace MD at 23:08 EST Tel , Service support , Brain MRI 10/18/20 09:00 IMPRESSION: Involutional changes of the brain, as described above. No acute infarct. Electronically Signed: Doni Schmidt MD at 10:37 EST Tel , Service support , Operations: None Procedures: 2-D Echocardiogram, EKG Summary of Care Provided: Patient seen and examined on the day of discharge and appeared to be stable to be discharged home. She denied any more blurry vision on the right eye. Heart rate has been in the high 50s to 60s, blood pressure stable. She denies dizziness or lightheadedness. Other vital signs are stable. The patient is a 79 year old F directly admitted from outside facility for vision changes on the right eye and she was admitted for possible acute stroke. CTA of the head and neck showed no evidence of acute infarct or hemorrhage, no significant vascular disease or stenosis. She had MRI brain done and that showed no acute infarct or hemorrhage. After admission, her symptoms improved she had no more blurry vision on the right eye. She denied associated headache, numbness or tingling, focal arm or leg weakness. Her routine blood work was unremarkable. Her EKG revealed no acute ischemic changes. Acute stroke ruled out. Did for discharge, her heart rate was reportedly in the 30s. She had no symptoms and her blood pressure stable. She was kept overnight, heart rate remained stable in the range of 50s to 60s and remained asymptomatic. She is on sotalol, no recent change in her dosage. Patient discharged home in a stable condition, discharged in her previous home medications without any changes including aspirin and Eliquis, recommended follow-up with PCP in 1 to 2 weeks. Patient Problems: Active and Suspected Problems (Last Reviewed 10/17/20 @ 21:[address] Antonino Pabon MD) Blurry vision, right eye (Acute) - Physical Exam Vitals/I&O's: Vital Signs Temp Pulse Resp BP Pulse Ox 97.5 F L 65 16 113/50 L 96 10/19/20 09:45 10/19/20 09:45 10/19/20 09:45 10/19/20 09:45 10/19/20 09:45 Oxygen Delivery Method Room Air Weight: 180 lb 12.465 oz Body Mass Index (BMI) 28.3 Intake and Output for Last 24 Hours 10/17/20 10/18/20 10/19/20 23:59 23:59 23:59 Intake Total 1240 / 1240 220 / 220 Balance 1240 / 1240 220 / 220 General: Alert, Oriented x3, Cooperative, No apparent distress HEENT: Atraumatic, PERRLA, EOMI, Normocephalic Oral: Moist Mucosa, No Gingival or Mucosal Lesions/ Ulcerations Neck: Supple, No JVD, Negative Carotid Bruits, Trachea Midline, Thyroid Normal Size and Texture Lungs: Clear to auscultation, Normal air movement, No rhonchi, No wheeze, No rales Cardiovascular: Regular rate, Regular Rhythm, Normal S1, Normal S2, PMI Normal Abdomen: Bowel Sounds Present, Soft, Non Tender, Non-Distended, No Hepato- splenomegaly Extremities: No clubbing, No cyanosis, No edema Skin: No rashes, No breakdown Lymphatic: No Cervical, Supraclavicular, or Inguinal Adenopathy Neurological: Cranial nerves II-XII grossly intact, Neuro grossly intact Psych/Mental Status: Normal Affect, Appropriate Laboratory Results 10/19/20 05:25: WBC 8.0, RBC 4.51, Hgb 14.0, Hct 41.9, MCV 92.9, MCH 31.0, MCHC 33.4, RDW Std Deviation 44.1 H, RDW Coeff of Crystal 12.9, Plt Count 229, MPV 10.8 10/19/20 05:25: Sodium 135 L, Potassium 4.0, Chloride 103, Carbon Dioxide 27.0, Anion Gap 5, BUN 16, Creatinine 0.75, Estim Creat Clear Calc 42.91, Est GFR (MDRD) Af Amer 96, Est GFR (MDRD) Non-Af 79, BUN/Creatinine Ratio 21.4 H, Glucose 99, Calcium 10.8 H, Magnesium 1.8 Current Medications Acetaminophen (Acetaminophen 325 Mg Tablet) 650 mg PO Q6H PRN PRN PRN Reason: Pain Score 1-10/Temp > 100.7 F Last Admin: 10/19/20 08:20 Dose: 650 mg Documented by: Albuterol Sulfate (Albuterol 2.5 Mg/3 Ml Vial.Neb.) 2.5 mg INHALATION Q4H PRN PRN PRN Reason: Breathing Alendronate Sodium (Alendronate Sodium 70 Mg Tablet) 35 mg PO [facility] Apixaban (Apixaban 5 Mg Tablet) 5 mg PO BID [facility] Last Admin: 10/19/20 08:20 Dose: 5 mg Documented by: Aspirin (Aspirin 81 Mg Tab.Chew) 81 mg PO DAILY@0800 [facility] Last Admin: 10/19/20 08:20 Dose: 81 mg Documented by: Atorvastatin Calcium (Atorvastatin Calcium 20 Mg Tablet) 20 mg PO QHS [facility] Last Admin: 10/18/20 21:29 Dose: 20 mg Documented by: Calcium/Vitamin D (Calcium Carb/Vitamin D 1 Tablet Tablet) 1 tablet PO BID [facility] Last Admin: 10/19/20 08:20 Dose: 1 tablet Documented by: Hydralazine HCl (Hydralazine 20 Mg/Ml Vial) 5 mg IV Q30M PRN PRN Reason: to maintain BP goals Levothyroxine Sodium (Levothyroxine 50 Mcg Tablet) 50 mcg PO DAILY@0600 [facility] Last Admin: 10/19/20 03:43 Dose: 50 mcg Documented by: Melatonin (Melatonin 3 Mg Tablet) 3 mg PO QHS PRN PRN PRN Reason: INSOMNIA Pantoprazole Sodium (Pantoprazole Sodium 40 Mg Tablet) 40 mg PO DAILY [facility] Last Admin: 10/19/20 03:44 Dose: 40 mg Documented by: Senna/Docusate Sodium (Senna/Docusate Sodium 1 Tablet) 2 tablet PO BID PRN PRN PRN Reason: Constipation Sodium Chloride (0.9% Saline Lock 10 Ml Syringe) 10 - 40 ml IV UD PRN PRN Reason: SALINE FLUSH Last Admin: 10/18/20 09:03 Dose: 10 ml Documented by: Discharge Activity: Return to Normal Activity Weight Bearing Status: Weight bearing as tolerated Call your doctor if you observe: Fever of 101 or Higher, Shortness of breath, Dizziness, Fainting spells, Chest pain, Increased palpitations (irregular heartbeat), Uncontrolled pain Home Medications: Medications to take at Discharge alendronate 35 mg tablet 35 mg PO SA 84 Days #12 tab 01/15/18 levothyroxine 50 mcg tablet 50 mcg PO DAILY 90 Days #90 tab 01/15/18 apixaban 5 mg tablet 5 mg PO BID #180 tab 07/29/19 Acetaminophen [Tylenol Arthritis] 650 mg PO DAILY PRN PRN 12/03/19 Calcium Carbonate/Vitamin D3 [Calcium 600-Vit D3 200 Tablet] 1 tab PO BID 12/03/19 albuterol sulfate 90 mcg/actuation aerosol inhaler 2 puff INHALATION Q6H PRN 05/14/20 sotalol 80 mg tablet 80 mg PO BID #180 tab 10/14/20 Esomeprazole Mag Trihydrate [Nexium] 40 mg PO DAILY 10/17/20 Simvastatin 40 mg PO DINNER 10/17/20 Aspirin [Aspirin, Baby] 81 mg PO DAILY@0800 #90 tab.chew 10/18/20 Following Prescriptions Were Given to Patient: Aspirin [Aspirin, Baby] 81 mg PO DAILY@0800 #90 tab.chew Primary Care Physician: Martine Chappell MD [Primary Care Provider] - Please follow up with your Primary Care Physician in: 1-2 WEEKS. Please Follow Up With: Martine Chappell MD Disposition: Home Minutes spent on discharge:: 26 Patient Condition:: Stable Medical Necessity - Tobacco Use Smoking Status: Unknown if ever smoked Meaningful Use Info Meaningful Use Diagnoses (Choose all that apply): None applicable OBSV E&M: 36538 Observation care discharge
== END 2020-10-19 14:32 | disposition home or self-care (01) | DRG 310 ==
PROVIDERS: Hospitalist; Internal Medicine; Admitting Provider Family Medicine; PCP Family Medicine; Visit Provider Hospitalist
DX: R00.1 Bradycardia, unspecified (principal); H53.8 Other visual disturbances; R91.1 Solitary pulmonary nodule; E03.9 Hypothyroidism, unspecified; E86.0 Dehydration; E78.2 Mixed hyperlipidemia; I10 Essential (primary) hypertension; I48.0 Paroxysmal atrial fibrillation; M81.0 Age-related osteoporosis without current pathological fracture; J44.9 Chronic obstructive pulmonary disease, unspecified; I49.5 Sick sinus syndrome; K58.9 Irritable bowel syndrome, unspecified; Z79.01 Long term (current) use of anticoagulants; Z86.73 Personal history of transient ischemic attack (TIA), and cerebral infarction without residual deficits; Z87.891 Personal history of nicotine dependence; Z87.19 Personal history of other diseases of the digestive system; Z79.899 Other long term (current) drug therapy
CPT/HCPCS: 36415; 70496; 70498; 70551; 80048; 80061; 83036; 83735; 85027; 93306; 97162; 97166; Q9967; A4216

== ENCOUNTER → 2020-10-26 10:22 | Outpatient (CLI) | payer MEDICARE, OTHER, SELFPAY ==
[2020-10-18 05:00] VITALS: BMI 28.3
--- NOTE | 2020-10-26 10:25 | RAD_ITS ---
STUDY: X-RAY CHEST REASON FOR EXAM: Female, 79 years old. pulmonary nodule seen on imaging study TECHNIQUE: PA and lateral views of the chest. COMPARISON: 12/03/2019 FINDINGS: The lungs are clear and expanded. There is no demonstrated pleural abnormality. Normal size heart. Moderate-sized hiatal hernia which is unchanged. Normal visualized pulmonary arteries. Normal visualized aortic arch and descending thoracic aorta. Normal visualized thoracic spine. Normal visualized ribs, clavicles, and shoulders. There is no demonstrated abnormality of the visualized soft tissue structures of the upper abdomen. RAD/Chest PA and Lateral IMPRESSION: No active disease. Electronically Signed: Doni Schmidt MD at 16:55 EST Tel , Service support ,
== END ==
PROVIDERS: PCP Family Medicine; Referring Provider Family Medicine; Visit Provider Family Medicine
DX: R91.1 Solitary pulmonary nodule (principal)
CPT/HCPCS: 71046

== ENCOUNTER → 2020-11-03 12:41 | Outpatient (CLI) | payer MEDICARE, OTHER, SELFPAY ==
[2020-10-18 05:00] VITALS: BMI 28.3
== END ==
PROVIDERS: PCP Family Medicine; Referring Provider Internal Medicine Cardiovascular Disease; Visit Provider Internal Medicine Cardiovascular Disease
DX: I48.0 Paroxysmal atrial fibrillation (principal); R00.1 Bradycardia, unspecified; Z51.81 Encounter for therapeutic drug level monitoring; Z79.899 Other long term (current) drug therapy
CPT/HCPCS: 93225; 93226

== ENCOUNTER → 2020-12-10 15:13 | Outpatient (CLI) | payer MEDICARE, OTHER, SELFPAY ==
[2020-10-18 05:00] VITALS: BMI 28.3
== END ==
PROVIDERS: PCP Family Medicine; Referring Provider Internal Medicine Gastroenterology; Visit Provider Internal Medicine Gastroenterology
DX: Z11.59 Encounter for screening for other viral diseases (principal)
CPT/HCPCS: 87635; C9803; U0002

== ENCOUNTER 2021-08-01 06:06 | Inpatient (IN) | payer MEDICARE, OTHER, SELFPAY ==
[2021-08-01] VITALS (15 sets, daily range): BP systolic 119–163; BP diastolic 73–92; PULSE 57–88; RESP 16–20; TEMP 36.4–37; O2SAT 91–100; BMI 28.2
--- NOTE | 2021-08-01 06:18 | HP.PCM.HOS_ITS ---
HPI - General General Date of Admission: 08/01/21 HPI Narrative MARTITA BENNETT, is a 80 year old F with a significant past medical history of hypertension; hyperlipidemia; hypothyroidism; tachycardic-bradycardic syndrome; copd; A. fib on Eliquis; IBS; chronic COPD; prior TIA evaluation with history of amaurosis fugax right eye; history of vasovagal syncope who presented to outside hospital ED ([place]) secondary to SOB that started on 07/27/2021. Associated with her symptoms is productive cough that has not changed in sputum thickness. Patient daughter had URI but tested negative for covid. Patient initially went to [facility] ED on 07/29/2021 for Covid test was negative. Patient was then placed on Augmentin and prednisone 50 mg daily. However because patient was not getting better patient return back to [facility] ED On her return to the hospital on ambulation her oxygen saturation was 84%. And on 2 L at rest her oxygen saturation was 93 to 95%. At [facility] ED on the second time patient was given 2 doses of DuoNeb and 60 mg of Solu-Medrol since she had already taken 50 mg p.o. prednisone before presentation. Reportedly patient was initially tight on lung examination but after breathing treatments wheezes were heard. Initial high sensitive troponin was 13. Repeat was 27 and 44. proBNP was 1761 with normal limit of less than 450; and in patient's age group less than 900. [facility] Medical History (Updated 08/01/21 @ 06:[address] Antonino Pabon MD) Amaurosis fugax of right eye COPD (chronic obstructive pulmonary disease) COPD with exacerbation Essential (primary) hypertension Gastroenteritis Hyponatremia IBS (irritable bowel syndrome) Mixed hyperlipidemia Paroxysmal atrial fibrillation Tachy-chikis syndrome TIA (transient ischemic attack) Vaso vagal episode Vasovagal syncope Vertigo Home Medications alendronate 35 mg tablet 35 mg PO SA 84 Days #12 tab 01/15/18 [History Last Taken 07/31/21] levothyroxine 50 mcg tablet 50 mcg PO DAILY 90 Days #90 tab 01/15/18 [History Last Taken 07/31/21] apixaban 5 mg tablet 5 mg PO BID #180 tab 07/29/19 [Rx Last Taken 07/31/21] acetaminophen 650 mg PO DAILY PRN PRN 03/03/20 [History Last Taken 12/02/19] calcium carbonate-vitamin D3 1 tab PO BID 12/03/19 [History Last Taken 07/31/21] albuterol sulfate 90 mcg/actuation aerosol inhaler 2 puff INHALATION Q6H PRN 05/14/20 [History Last Taken Unknown] esomeprazole magnesium 40 mg PO DAILY 10/17/20 [History Last Taken 07/31/21] simvastatin 40 mg PO QHS 10/17/20 [History Last Taken 07/31/21] sotalol 80 mg tablet 80 mg PO BID #180 tab 10/19/20 [Rx Last Taken 07/31/21] amoxicillin-pot clavulanate 1 tab PO BID 08/01/21 [History Last Taken 07/31/21] prednisone [Deltasone] 50 mg PO DAILY 08/01/21 [History Last Taken 07/31/21] Allergy/AdvReac Type Severity Reaction Status Date / Time ceftriaxone [From Rocephin] Allergy Hives Verified 05/13/21 10:47 doxycycline [From Vibramycin] Allergy Hives Verified 05/13/21 10:47 oxycodone [From OxyContin] Allergy hallucinati Verified 05/13/21 10:47 ons Family History Mother pacemaker Daughter Arthritis Daughter CAD (coronary artery disease) Diabetes Hypertension Sister CVA (cerebral vascular accident) Surgical History History of appendectomy History of bilateral knee replacement History of hernia surgery Hx Sigmoidectomy Social History Smoking Status: Former smoker alcohol intake: never substance use type: does not use caffeine: Yes Type: coffee what type of physical activity do you participate in: bicycling frequency: daily duration: 15-30 minutes/day seatbelt use: always do you feel safe at home: Yes ROS ROS Narrative Constitutional: Reports chills denies fever, anorexia and change in weight Eyes: Denies blurry vision, change in eye color, change in vision, discharge from eye(s), double vision, erythema, eye pain, loss of vision or other HEENT: Denies abnormal hearing, dysphagia, ear pain, epistaxis, headache(s), hearing loss, nasal congestion, nasal discharge, post nasal drip, sinus pressure, sore throat or other Cardiovascular: Reports chest tightness. Denies palpitations. Respiratory/Chest: Reports productive cough. Reports shortness of breath Gastrointestinal: Denies abdominal pain, coffee ground emesis, constipation, diarrhea, dyspepsia, hematemesis, hematochezia, loose stools, melena, nausea, vomiting or other Genitourinary: Denies burning urination, difficulty urinating, dysuria, hematuria, nocturia, urinary frequency, urinary hesitancy, urinary incontinence, urinary urgency or other Musculoskeletal: Denies arthralgias, back pain, joint pain, joint stiffness, joint swelling, myalgias, neck pain or other Neurologic: Denies abnormal gait, abnormal speech, confusion, disequilibrium, dizziness, focal weakness, headache(s), numbness, paresthesias, seizure-like activity, seizures, syncope, tingling, tremor(s) or other Psychiatric: Denies anxiety, depression, homicidal ideation, suicidal ideation or other Endocrinology: Denies change in body appearance; excessive sweating, heat intolerance, polydipsia, polyuria or other Hematologic/Lymphatic: Denies anemia, easy bleeding, easy bruising, lymphadenopathy or other Integumentary: Denies rashes Allergic/Immunologic: Denies rhinitis, hives, eczema, asthma or other Vital Signs Vital Signs Vital Signs: 08/01/21 05:07 08/01/21 05:38 Temperature 97.6 F L Temperature Source Oral Pulse Rate 88 88 Respiratory Rate 18 Respiratory Depth Normal Blood Pressure 163/92 H Blood Pressure Mean 115 Blood Pressure Source Monitor Blood Pressure Position Semi-Fowlers Blood Pressure Location Left Arm Pulse Ox 100 Oxygen Delivery Method Nasal Cannula Nasal Cannula Oxygen Flow Rate (L/min) 2 2 Weight Weight: 81.783 kg Body Mass Index (BMI) 28.2 Physical Exam Narrative Physical exam: General: Well-nourished, well-developed. Head: Normocephalic, atraumatic, no tenderness Eyes: PERRLA, EOMI ENT, no trauma, moist mucous membranes, no rhinorrhea Neck: Nontender, full range of motion, no spinal tenderness, deformities, step- off CVS: Regular rate and rhythm. S1-S2 present. No murmur, gallop or rub. Respiratory : Wheezes. Chest wall nontender. Abdomen: Soft, nontender, nondistended, normal bowel sounds, no masses : Deferred Back: Nontender, no CVA tenderness, no midline spinal tenderness, deformities, step-offs Extremities: Nontender full range of motion, no trauma Skin: Normal color, no trauma, abrasions Neuro: Alert, oriented, cranial nerves II through XII grossly intact. Psychiatry: Normal mood. Normal affect. Not depressed. Not anxious. Assessment & Plan Assessment/Plan (1) COPD exacerbation: PLAN: Acute exacerbation of COPD Impression of chest x-ray by radiologist at outside hospital: COPD with airway inflammation. No consolidative airspace disease. Hiatal hernia. Scheduled DuoNeb Albuterol as needed Mucinex ordered Solu-Medrol 40 mg every 12 hours ordered. Continue Augmentin. Continue oxygen cessation. Titrate oxygen to maintain oxygen saturation to 90%. Monitor BMP and CBC Atrial fibrillation Stable Apixaban Sotalol continued Hypertension Blood pressure is not within goal As needed hydralazine IV ordered. Trend blood pressure and adjust blood pressure medications. DVT prophylaxis: Apixaban for A. fib continued. Charges/Coding Visit Charges Inpatient E&M: 62988 Init Hosp L2
[2021-08-01] MEDS: Ipratropium/Albuterol Sulfate 3 ML AMPUL.NEB INHALATION ×3 (07:03→20:25)
--- NOTE | 2021-08-01 07:19 | EKG12_ITS ---
Test Reason : IRREG RYTHUM Blood Pressure : / mmHG Vent. Rate : 059 BPM Atrial Rate : 059 BPM P-R Int : 200 ms QRS Dur : 096 ms QT Int : 406 ms P-R-T Axes : 079 -02 059 degrees QTc Int : 401 ms Sinus bradycardia Septal infarct (cited on or before 03-DEC-2019) Abnormal ECG When compared with ECG of 03-DEC-2019 17:02, No significant change was found Confirmed by ZEESHAN TALLEY, MICHELLE ([id number]), editor city CESAR ROBERT ([id number]) on 08/03/2021 12:30:04 P M Referred By: Confirmed By:KAILYN BYERS MD
[2021-08-01] MEDS: Amox/Clavulanate 875 MG Tablet PO (07:58)
[2021-08-01] MEDS: guaiFENesin 600 MG Tablet PO ×2 (07:58→20:59)
[2021-08-01] MEDS: Calcium Carb/Vitamin D 1 TABLET Tablet PO ×2 (09:43→17:42)
[2021-08-01] MEDS: Levothyroxine 50 MCG Tablet PO (09:43)
[2021-08-01] MEDS: Sotalol Hydrochloride 80 MG Tablet PO ×2 (09:43→20:59)
[2021-08-01] MEDS: Pantoprazole Sodium 40 MG Tablet PO (09:44)
[2021-08-01] MEDS: APIXABAN 5 MG TABLET PO ×2 (09:44→20:59)
[2021-08-01] MEDS: 0.9% Saline Lock 10 ML Syringe IV ×4 (09:49→21:04)
[2021-08-01] MEDS: Furosemide 20 MG/2 ML VIAL IV ×2 (11:48→17:30)
--- NOTE | 2021-08-01 14:31 | PCM.HOSP.N ---
Hospitalist Note Patient was seen and examined today, she appears comfortable on 4 L of nasal cannula oxygen. I ordered a respiratory panel on the patient, I also gave her 1 dose of 20 mg IV Lasix. Patient's beta natruretic peptide at [facility] was elevated, the chest x-ray was read out as showing vascular congestion. I stopped the patient's Augmentin-I do not think she needs Augmentin. I have decided to place her on Lasix 20 mg IV twice daily along with potassium. Await the results of the respiratory panel on the patient, also increase the patient's Solu-Medrol to 40 mg every 8 hours.
[2021-08-01] MEDS: Albuterol 2.5 MG/3 ML VIAL.NEB. INHALATION (14:56)
[2021-08-01] MEDS: Potassium Chloride Oral Tablet 20 MEQ PO (17:26)
[2021-08-01] MEDS: Atorvastatin Calcium 20 MG Tablet PO (20:59)
[2021-08-01] MEDS: MELATONIN 3 MG TABLET PO (20:59)
[2021-08-02] VITALS (9 sets, daily range): BP systolic 127–150; BP diastolic 73–83; PULSE 58–86; RESP 16–20; TEMP 36.6–36.8; O2SAT 91–96
[2021-08-02] MEDS: Albuterol 2.5 MG/3 ML VIAL.NEB. INHALATION (02:20)
[2021-08-02 05:47] LABS: Absolute Lymphocyte Count 0.84 X10^3/uL (0.83-4.51); Basophil# 0.01 X10^3/uL; Basophil% 0.1 % (0-1); Hematocrit 43.9 % (37-47); Lymphocyte # 0.84 X10^3/ul (0.83-4.51); Lymphocyte % 6.6 % (19-41); Mean Corp Hgb Conc 31.9 g/dL (32-36); Mean Corpuscular Hgb 27.5 pg (27.0-32.0); Mean Corpuscular Volume 86.2 fL (81-99); Mean Platelet Vol. 10.5 fl (6.2-12.0); Monocyte# 0.76 X10^3/uL; NRBC Flagged by Analyzer 0 % (0-5); Neutrophil # 11.01 X10^3/uL (2.7-7.7); Neutrophil % 86.7 % (47-70); Platelet Count 310 K/mm3 (150-450); RBC Distribution Width CV 15.3 % (11.6-14.6); RBC Distribution Width SD 48.2 fl (35.1-43.9); Red Blood Count 5.09 M/mm3 (4.2-5.4); White Blood Count 12.7 K/mm3 (4.4-11.0)
[2021-08-02] MEDS: Levothyroxine 50 MCG Tablet PO (06:11)
[2021-08-02 06:38] LABS: Anion Gap 6 (5-15); BUN 24 mg/dL (7-18); BUN/Creat Ratio 24.7 RATIO (10-20); Calcium,Total 10.4 mg/dL (8.5-10.1); Chloride 96 mmol/L (98-107); Creatinine, Serum 0.97 mg/dL (0.55-1.02); EST Glomerular Filtration Rate 58 mL/min (>60); Est Glom Filt Rate - Afr Amer 70 mL/min (>60); Estimated Creatinine Clearance 43.48 ml/min; Glucose 128 mg/dL (74-106); Potassium 4.2 mmol/L (3.5-5.1); Sodium Level 132 mmol/L (136-145)
[2021-08-02] MEDS: Ipratropium/Albuterol Sulfate 3 ML AMPUL.NEB INHALATION ×3 (07:24→19:26)
[2021-08-02] MEDS: guaiFENesin 600 MG Tablet PO ×2 (07:41→20:52)
[2021-08-02] MEDS: Potassium Chloride Oral Tablet 20 MEQ PO ×2 (07:41→17:45)
[2021-08-02] MEDS: Calcium Carb/Vitamin D 1 TABLET Tablet PO ×2 (07:42→20:52)
[2021-08-02] MEDS: Furosemide 20 MG/2 ML VIAL IV ×2 (07:42→17:46)
[2021-08-02] MEDS: APIXABAN 5 MG TABLET PO ×2 (07:43→20:52)
[2021-08-02] MEDS: 0.9% Saline Lock 10 ML Syringe IV ×2 (07:46→12:07)
[2021-08-02 09:12] LABS: BNP,B-Type NATRIURETIC PEPTIDE 308.3 pg/mL (0-100)
--- NOTE | 2021-08-02 11:03 | CASEMGMT ---
LIYAH PACHECO Assessment: Face to Face with pt for initial transition planning/care coordination assessment. LIYAH PACHECO introduced self and role at [facility], pt voices understanding and consents to assessment. Pt is A/O x4 and answers all questions appropriately at this time. Pt lying in bed with O2 on in no distress. Care providers, pharmacy, and demographics verified/updated. Admitting Dx: COPD exac PCP:Ta Specialists:Hari Preferred Pharmacy: [facility] Insurance: [facility], AARP Prescription Benefit: yes LW/HPOA: Pt has a LW and DPOA on file at [facility]. His DPOA is his dtr Mitzi Gonsalez. LNOK: Mitzi Gonsalez, dtr Living Arrangements: Pt lives with dtr in a single story house with 2 steps to enter with a rail. Pt reports she is I in ADL's and denies concerns at home. Transportation: Pt states she can drive but does not have a car. Her dtr transports her to medical appts, and she denies concerns with transportation. DME/HHC/SNF: Pt has grab bars in her bathroom, a cane she uses in the house and a FWW and rollator she uses outside the home. Pt has crutches, shower chair and transfer bench as well. Pt has had [facility] HHC in the past and been to Rehab at [facility]. Pt provided with a list of local in network DME companies should she need O2 at home. Pt states she would like to wait and see if this will be needed instead of choosing an agency now. Pt states no concerns with going home at time of dc. She denies need for any HHC including nursing or therapy. Therapy is not ordered this stay, pt states she feels she is at baseline and denies need for therapy during hospital stay. Pt states no further concerns/needs. CM to follow. Advised pt to ask CM if any further question/concerns/needs arise, voices understanding. Pt Goal: Home Plan: Home
[2021-08-02] MEDS: Sotalol Hydrochloride 80 MG Tablet PO ×2 (12:06→20:52)
--- NOTE | 2021-08-02 12:15 | CASEMGMT ---
Pt screened with [facility] Palliative Care Screening Tool due to COPD exac, pt did not meet criteria.
--- NOTE | 2021-08-02 13:22 | PN.HOSP_ITS ---
Subjective Subjective Patient seen and examined. She had no active complaints today. She felt much better. She was on 2 L of oxygen. Review of systems otherwise negative. She is on 2L of oxygen by nasal canula. She doesnt wear any oxygen at home. She has otherwise remained hemodynamically stable. Objective Data Objective Data Vital Signs: Vital Signs Temp Pulse Resp BP Pulse Ox 98.0 F 72 18 150/80 H 96 08/02/21 07:48 08/02/21 12:05 08/02/21 07:48 08/02/21 07:48 08/02/21 07:48 Oxygen Flow Rate (L/min) 2 Oxygen Delivery Method Venturi Mask Weight: 180 lb 5.41 oz Body Mass Index (BMI) 28.2 Intake & Output: Intake and Output for Last 24 Hours 07/31/21 08/01/21 08/02/21 23:59 23:59 23:59 Intake Total 1140 / 1140 300 / 300 Balance 1140 / 1140 300 / 300 Lab / Micro Data Result Diagrams: 08/02/21 05:06 08/02/21 05:06 Labs: Laboratory Results - last 24 hr 08/02/21 05:06: WBC 12.7 H, RBC 5.09, Hgb 14.0, Hct 43.9, MCV 86.2, MCH 27.5, MCHC 31.9 L, RDW Std Deviation 48.2 H, RDW Coeff of Crystal 15.3 H, Plt Count 310, MPV 10.5, Immature Gran % (Auto) 0.600, Neut % (Auto) 86.7 H, Lymph % (Auto) 6.6 L, [place] % (Auto) 6.0, Eos % (Auto) 0.0, Baso % (Auto) 0.1, Absolute Neuts (auto) 11.0 H, Absolute Lymphs (auto) 0.84, Nucleated RBC % 0 08/02/21 05:06: Sodium 132 L, Potassium 4.2, Chloride 96 L, Carbon Dioxide 30.0, Anion Gap 6, BUN 24 H, Creatinine 0.97, Estim Creat Clear Calc 43.48, Est GFR (MDRD) Af Amer 70, Est GFR (MDRD) Non-Af 58 L, BUN/Creatinine Ratio 24.7 H, Glucose 128 H, Calcium 10.4 H 08/02/21 05:06: B-Natriuretic Peptide 308.3 H Micro: Microbiology 08/01/21 13:52 Mucosa - Nasopharyngeal Respiratory Panel (PCR) - Final Human [place] Physical Exam Const alert, oriented x3 and no apparent distress Exam Limitations: no limitations HEENT head/scalp atraumatic and moist oral mucous membranes Head and Scalp: normocephalic Eyes PERRL, EOMs intact bilaterally and conjunctivae normal Neck no lymphadenopathy Resp normal respiratory effort, no retractions, no use of accessory muscles and clear to auscultation bilaterally Resp Narrative: on 2L of oxygen by nasal canula Cardio regular rate, regular rhythm, S1 normal heart sound, S2 normal heart sound and no murmurs GI normal to inspection, nondistended, normoactive bowel sounds, soft to palpation, non-tender and non-distended Extremity normal to inspection, full ROM and no clubbing, cyanosis or edema Peripheral Pulses: Yes pulses 2+ throughout Skin no rashes or lesions noted Neuro oriented x3, CN's II-XII intact bilaterally and moves all extremities Sensorium / Orientation: awake and alert Psych affect normal Assessment & Plan Assessment/Plan (1) COPD exacerbation: PLAN: #Acute COPD exacerbation * Feels much better. Now on 2 L of oxygen. * Breathing treatments bronchodilators. On IV Solu-Medrol * BNP was said to be elevated at the outside facility. BNP is 308 which is also elevated. * Currently on IV Lasix 20 mg twice daily. * Titrate oxygen to maintain saturation above 90%. Wean off oxygen as tolerated. * #Acute on chronic heart failure preserved ejection fraction * BNP elevated at 308 and BNP was also elevated at outside hospital * On IV Lasix 20 mg twice daily * Monitor input and output. Fluid restriction 1500 cc daily. * 2D echo from April 2021 showed EF of 65%. * #History of A. fib: On sotalol and Eliquis #Hypertension: On IV hydralazine as needed. Doesnt appear that she is on any oral meds #Hypothyroidism: On Synthroid DVT prophylaxis: Not indicated as patient already on Eliquis Disposition: For likely discharge home tomorrow. Charges/Coding Visit Charges Inpatient E&M: 24308 Subs Hosp L2
--- NOTE | 2021-08-02 15:53 | PCS.PANDOC ---
PANDEMIC DOCUMENTATION INITIATED: Date: 05/17/2021 Time: 190
[2021-08-02] MEDS: Pantoprazole Sodium 40 MG Tablet PO (20:52)
[2021-08-02] MEDS: MELATONIN 3 MG TABLET PO (20:52)
[2021-08-02] MEDS: Atorvastatin Calcium 20 MG Tablet PO (20:52)
[2021-08-03 02:44] VITALS: BP 157/80; PULSE 56; RESP 16; TEMP 36.6; O2SAT 95
[2021-08-03] MEDS: Levothyroxine 50 MCG Tablet PO (05:52)
[2021-08-03 07:04] VITALS: PULSE 74; RESP 16; O2SAT 92
[2021-08-03] MEDS: Ipratropium/Albuterol Sulfate 3 ML AMPUL.NEB INHALATION ×2 (07:04→13:10)
[2021-08-03 07:27] LABS: Absolute Lymphocyte Count 0.96 X10^3/uL (0.83-4.51); Absolute Neutrophil Count 7.5 X10^3/uL (2.0-7.7); Basophil# 0.02 X10^3/uL; Basophil% 0.2 % (0-1); Hemoglobin 13.1 g/dL (12.0-15.0); Lymphocyte # 0.96 X10^3/ul (0.83-4.51); Lymphocyte % 10.4 % (19-41); Mean Corp Hgb Conc 31.2 g/dL (32-36); Mean Corpuscular Hgb 27.1 pg (27.0-32.0); Mean Corpuscular Volume 86.8 fL (81-99); Mean Platelet Vol. 10.5 fl (6.2-12.0); Monocyte# 0.67 X10^3/uL; Monocyte% 7.3 % (0-10); NRBC Flagged by Analyzer 0 % (0-5); Neutrophil # 7.51 X10^3/uL (2.7-7.7); Neutrophil % 81.2 % (47-70); POSITIVE MORPHOLOGY YES; Platelet Count 287 K/mm3 (150-450); RBC Distribution Width SD 47.9 fl (35.1-43.9); Red Blood Count 4.84 M/mm3 (4.2-5.4); White Blood Count 9.2 K/mm3 (4.4-11.0)
[2021-08-03 07:46] LABS: Differential Indicated SCAN CRITERIA MET
[2021-08-03 07:54] LABS: Anion Gap 5 (5-15); BUN 29 mg/dL (7-18); BUN/Creat Ratio 33.1 RATIO (10-20); Calcium,Total 10.3 mg/dL (8.5-10.1); Chloride 96 mmol/L (98-107); Creatinine, Serum 0.88 mg/dL (0.55-1.02); EST Glomerular Filtration Rate 66 mL/min (>60); Est Glom Filt Rate - Afr Amer 79 mL/min (>60); Estimated Creatinine Clearance 47.93 ml/min; Glucose 120 mg/dL (74-106); Potassium 4.6 mmol/L (3.5-5.1); Sodium Level 132 mmol/L (136-145)
[2021-08-03 08:48] LABS: Reactive Lymphocyte RARE
[2021-08-03] MEDS: Potassium Chloride Oral Tablet 20 MEQ PO (10:07)
[2021-08-03] MEDS: Sotalol Hydrochloride 80 MG Tablet PO (10:07)
[2021-08-03] MEDS: Furosemide 20 MG/2 ML VIAL IV (10:08)
[2021-08-03] MEDS: guaiFENesin 600 MG Tablet PO (10:08)
[2021-08-03] MEDS: Calcium Carb/Vitamin D 1 TABLET Tablet PO (10:08)
[2021-08-03] MEDS: APIXABAN 5 MG TABLET PO (10:08)
[2021-08-03 10:10] VITALS: BP 122/77; PULSE 73; RESP 16; TEMP 36.2; O2SAT 94
[2021-08-03] MEDS: 0.9% Saline Lock 10 ML Syringe IV ×2 (10:19→14:19)
[2021-08-03 11:30] VITALS: O2SAT 87; O2SAT 92; O2SAT 93
--- NOTE | 2021-08-03 11:53 | CASEMGMT ---
Pt qualifies for home O2, pt after reviewing list given yesterday decides on [facility]. TC to [facility], spoke with Padmini. She is aware of need for portable tank and of referral. Referral faxed at this time.
[2021-08-03 13:10] VITALS: PULSE 78; RESP 20
--- NOTE | 2021-08-03 13:11 | PCM.DC.SUM ---
Providers Date of Admission: 08/01/21 Primary Care Physician: Dr. Martine Chappell MD Reason For Visit: COPD EXACERBATION Diagnosis Discharge Diagnosis (1) COPD exacerbation: Status: Chronic Code(s): J44.1 - Chronic obstructive pulmonary disease with (acute) exacerbation Medications at Discharge Home Medications alendronate 35 mg tablet 35 mg PO SA 84 Days #12 tab 01/15/18 levothyroxine 50 mcg tablet 50 mcg PO DAILY 90 Days #90 tab 01/15/18 apixaban 5 mg tablet 5 mg PO BID #180 tab 07/29/19 acetaminophen 650 mg PO DAILY PRN PRN 12/03/19 calcium carbonate-vitamin D3 1 tab PO BID 12/03/19 albuterol sulfate 90 mcg/actuation aerosol inhaler 2 puff INHALATION Q6H PRN 05/14/20 esomeprazole magnesium 40 mg PO DAILY 10/17/20 simvastatin 40 mg PO QHS 10/17/20 sotalol 80 mg tablet 80 mg PO BID #180 tab 10/19/20 furosemide 40 mg PO DAILY #30 tab 08/03/21 lisinopril 5 mg PO DAILY #30 tab 08/03/21 potassium chloride 20 meq PO DAILY #30 tab 08/03/21 prednisone 40 mg PO DAILY #10 tab 08/03/21 Hospital Course Operations None Procedures None Summary of Care Provided Minutes Spent on Discharge: 45 Hospital Course: Patient is an 80-year-old female with a past medical history as outlined was admitted through the ED on 08/01/2021 with a complaint of shortness of breath. Symptoms started started on 07/27/2021. She initially went to an outside hospital ED. She had had a Covid test done at the outside hospital ED on 07/29/2021 which was negative and was placed on Augmentin and prednisone. His symptoms were worsening so she was sent to the hospital. At the hospital, she was hypoxic with a saturation at 84% with ambulation and required 2 L of oxygen. She was started on IV Solu-Medrol and breathing treatments I have proBNP was also elevated. Will defer transferred to [facility] and managed for acute exacerbation of COPD. COPD and breathing treatments bronchodilators and IV Solu-Medrol. Patient was subsequently started on Lasix as well to diuresis on account of elevated BNP. BNP. He was also elevated at 308. Patient shortness of breath improved and she felt much better. She had walking pulse ox on 08/03/2021 which showed that she required 2 L of oxygen. She remained stable and was discharged home on 08/03/2021. She had walking pulse ox which showed that she required 2 L of oxygen. She was therefore discharged home on 2 L of oxygen and n.p.o. prednisone 40 mg daily for 5 days. She was also discharged on p.o. Lasix and is to follow-up with her primary care doctor in 1 to 2 weeks. Patient seen and examined prior to discharge. She had no complaints. She was on 2 L of oxygen. She felt her breathing had improved. Review of stents otherwise negative. Labs and vitals reviewed. Home medication reviewed and reconciled. Physical Exam Const alert, oriented x3 and no apparent distress General Appearance: cooperative, comfortable and well kempt Exam Limitations: no limitations HEENT normocephalic, head/scalp atraumatic and moist oral mucous membranes Eyes PERRL, EOMs intact bilaterally and conjunctivae normal Neck no lymphadenopathy Resp normal respiratory effort, no retractions, no use of accessory muscles and clear to auscultation bilaterally Resp Narrative: on 2L of oxygen by nasal canula Cardio regular rate, regular rhythm, S1 normal heart sound, S2 normal heart sound and no murmurs GI normal to inspection, nondistended, normoactive bowel sounds, soft to palpation, non-tender and non-distended Extremity normal to inspection, full ROM and no clubbing, cyanosis or edema Skin no rashes or lesions noted Neuro oriented x3, CN's II-XII intact bilaterally and moves all extremities Sensorium / Orientation: awake and alert Psych affect normal Weight / BMI Weight Weight: 180 lb 5.41 oz Body Mass Index (BMI) 28.2 ABG / Lab / Microbiology Data Result Diagrams: 08/03/21 05:45 08/03/21 05:45 Laboratory: Laboratory Results - last 24 hr 08/03/21 05:45: WBC 9.2, RBC 4.84, Hgb 13.1, Hct 42.0, MCV 86.8, MCH 27.1, MCHC 31.2 L, RDW Std Deviation 47.9 H, RDW Coeff of Crystal 15.0 H, Plt Count 287, MPV 10.5, Immature Gran % (Auto) 0.900, Neut % (Auto) 81.2 H, Lymph % (Auto) 10.4 L, Edmunds % (Auto) 7.3, Eos % (Auto) 0.0, Baso % (Auto) 0.2, Absolute Neuts (auto) 7.5, Absolute Lymphs (auto) 0.96, Nucleated RBC % 0, Reactive Lymphocytes RARE 08/03/21 05:45: Sodium 132 L, Potassium 4.6, Chloride 96 L, Carbon Dioxide 31.0, Anion Gap 5, BUN 29 H, Creatinine 0.88, Estim Creat Clear Calc 47.93, Est GFR (MDRD) Af Amer 79, Est GFR (MDRD) Non-Af 66, BUN/Creatinine Ratio 33.1 H, Glucose 120 H, Calcium 10.3 H Microbiology: Microbiology 08/01/21 13:52 Mucosa - Nasopharyngeal Respiratory Panel (PCR) - Final Human [place] D/C Instructions Discharge Diet: Low fat / Low cholesterol Weight Bearing Status: Weight bearing as tolerated Call your doctor if you observe: Fever of 101 or Higher, Shortness of breath, Swelling in the ankles and Increased palpitations (irregular heartbeat) Meaningful Use Info Meaningful Use Diagnoses (Choose all that apply): CHF CHF JOLLY/ARB ordered at discharge?: Yes Documented LVEF (%): 65 Discharge Plan Admission Admit Date/Time: 08/01/21 06:06 Primary Reason for Your Visit: acute COPD exacerbation, acute HFpEF Attending Provider: Radha Stallworth Primary Care Provider: Martine Chappell Discharge Orders/Prescriptions Prescriptions: New furosemide 40 mg tablet 40 mg PO DAILY Qty: 30 RF: 1 potassium chloride 20 mEq tablet extended release 20 meq PO DAILY Qty: 30 RF: 1 lisinopril 5 mg tablet 5 mg PO DAILY Qty: 30 RF: 1 prednisone 20 mg tablet 40 mg PO DAILY Qty: 10 RF: 0 Continued alendronate 35 mg tablet 35 mg PO SA 84 Days Qty: 12 RF: 0 levothyroxine 50 mcg tablet 50 mcg PO DAILY 90 Days Qty: 90 RF: 0 albuterol sulfate 90 mcg/actuation HFA aerosol inhaler 2 puff INHALATION Q6H PRN (Reason: Breathing) RF: 0 calcium carbonate-vitamin D3 1 EACH tablet 1 tab PO BID RF: 0 acetaminophen 650 MG tablet extended release 650 mg PO DAILY PRN PRN (Reason: arthritis pain) RF: 0 esomeprazole magnesium 40 MG capsule 40 mg PO DAILY RF: 0 simvastatin 40 MG tablet 40 mg PO QHS RF: 0 apixaban 5 mg tablet 5 mg PO BID Qty: 180 RF: 3 sotalol 80 mg tablet 80 mg PO BID Qty: 180 RF: 3 Discontinued prednisone 50 mg Tablet 50 mg PO DAILY RF: 0 amoxicillin-pot clavulanate 875-125 mg tablet 1 tab PO BID RF: 0 Referrals / Follow Up: Martine Chappell MD [Primary Care Provider] - Within 2 Weeks Disposition Disposition (needs filled in before D/C Order can be placed): Home, Self Care Charges/Coding Visit Charges Inpatient E&M: 10921 Disch Hosp
[2021-08-03 14:12] VITALS: BP 117/64; PULSE 64; RESP 16; TEMP 36.4; O2SAT 95
--- NOTE | 2021-08-03 19:45 | NURSING ---
reviewed documentation by Radha Kohler, student RN
== END 2021-08-03 15:32 | disposition home or self-care (01) | DRG 190 ==
PROVIDERS: Admitting Provider Hospitalist; PCP Family Medicine; Visit Provider Student in an Organized Health Care Education/Training Program
DX: J44.1 Chronic obstructive pulmonary disease with (acute) exacerbation (principal); I50.33 Acute on chronic diastolic (congestive) heart failure; I11.0 Hypertensive heart disease with heart failure; B97.81 Human metapneumovirus as the cause of diseases classified elsewhere; E78.5 Hyperlipidemia, unspecified; I48.0 Paroxysmal atrial fibrillation; E78.2 Mixed hyperlipidemia; E03.9 Hypothyroidism, unspecified; I49.5 Sick sinus syndrome; K58.9 Irritable bowel syndrome, unspecified; Z86.73 Personal history of transient ischemic attack (TIA), and cerebral infarction without residual deficits; Z79.01 Long term (current) use of anticoagulants; Z87.891 Personal history of nicotine dependence; Z79.899 Other long term (current) drug therapy
CPT/HCPCS: 36415; 80048; 83880; 85025; 87633; 93005; 94640; 94668; 97802; 99251; A4216; G0463; J1940

== ENCOUNTER → 2021-08-13 14:05 | Outpatient (CLI) | payer MEDICARE, OTHER, SELFPAY ==
[2021-08-13 15:19] LABS: Anion Gap 4 (5-15); BUN 22 mg/dL (7-18); Calcium,Total 10.8 mg/dL (8.5-10.1); Chloride 97 mmol/L (98-107); Creatinine, Serum 1.05 mg/dL (0.55-1.02); EST Glomerular Filtration Rate 53 mL/min (>60); Est Glom Filt Rate - Afr Amer 64 mL/min (>60); Glucose 119 mg/dL (74-106); Potassium 4.3 mmol/L (3.5-5.1); Sodium Level 134 mmol/L (136-145)
== END ==
PROVIDERS: PCP Family Medicine; Referring Provider Family Medicine; Visit Provider Family Medicine
DX: J44.9 Chronic obstructive pulmonary disease, unspecified (principal)
CPT/HCPCS: 36415; 80048

== ENCOUNTER → 2022-07-25 | Outpatient (CLI) | payer MEDICARE, OTHER, SELFPAY ==
--- NOTE | 2022-07-25 16:14 | RAD_ITS ---
EXAM: XR LUMBOSACRAL SPINE, 4 OR 5 VIEWS CLINICAL INDICATION: pain, acute on chronic. cc copy to Drs. Roel Reed, and [facility] ortho TECHNIQUE: Frontal, lateral and bilateral oblique views of the lumbar spine. This report was created using [employer] report generation technology. COMPARISON: None. FINDINGS: VERTEBRAE: No acute or healing fracture. No unusual lytic or sclerotic lesions of bone. DISC SPACES: Multilevel mild to moderate degenerative changes of spine. No spondylolisthesis. GASTROINTESTINAL TRACT: No bowel obstruction. OTHER FINDINGS: Left total hip arthroplasty identified, incompletely imaged. No suspicious calcifications. RAD/L/S Spine Min 4 Views IMPRESSION: Multilevel mild to moderate degenerative changes of the lumbar spine without spondylolisthesis. Electronically Signed: Gal Lofton MD at 21:56 EDT ,
[2022-07-25 17:45] LABS: Absolute Neutrophil Count 4.3 X10^3/uL (2.0-7.7); Basophil# 0.04 X10^3/uL; Basophil% 0.6 % (0-1); Eosinophil# 0.22 X10^3/uL; Eosinophils% 3.3 % (0-5); Hematocrit 38.1 % (37-47); Hemoglobin 11.4 g/dL (12.0-15.0); Lymphocyte % 24.2 % (19-41); Mean Corp Hgb Conc 29.9 g/dL (32-36); Mean Corpuscular Hgb 25.4 pg (27.0-32.0); Mean Corpuscular Volume 84.9 fL (81-99); Mean Platelet Vol. 11.5 fl (6.2-12.0); Monocyte# 0.48 X10^3/uL; Monocyte% 7.3 % (0-10); NRBC Flagged by Analyzer 0 % (0-5); Neutrophil # 4.26 X10^3/uL (2.7-7.7); Neutrophil % 64.3 % (47-70); Platelet Count 252 K/mm3 (150-450); RBC Distribution Width CV 16.8 % (11.6-14.6); RBC Distribution Width SD 52.2 fl (35.1-43.9); Red Blood Count 4.49 M/mm3 (4.2-5.4); White Blood Count 6.6 K/mm3 (4.4-11.0)
[2022-07-25 18:22] LABS: ALB/GLOB Ratio 1.1 RATIO (0.9-2.4); AST(SGOT) 24 U/L (15-37); Alanine Aminotransfer ALT/SGPT 22 U/L (13-56); Albumin, Serum 3.7 g/dL (3.2-5.0); Alkaline Phosphatase 62 U/L (45-117); Anion Gap 6 (5-15); BUN 19 mg/dL (7-18); BUN/Creat Ratio 18.3 RATIO (10-20); CRP < 2.90 mg/L (0.0-3.0); Calcium,Total 11.1 mg/dL (8.5-10.1); Chloride 101 mmol/L (98-107); Creatinine, Serum 1.04 mg/dL (0.55-1.02); EST Glomerular Filtration Rate 54 mL/min (>60); Est Glom Filt Rate - Afr Amer 65 mL/min (>60); Globulin 3.5 g/dL (2.2-4.2); Glucose 92 mg/dL (74-106); Potassium 4.5 mmol/L (3.5-5.1); Protein, Total 7.2 g/dL (6.4-8.2); Sodium Level 137 mmol/L (136-145)
[2022-07-25 18:23] LABS: Microalbumin,Random Urine < 5.0 mg/L (NO RANGE EST.)
[2022-07-26 11:00] LABS: Vitamin D,25 Hydroxy 50.3 ng/mL
[2022-07-26 11:01] LABS: PTHIN 161.9 pg/mL (18.4-80.1)
[2022-07-27 16:09] LABS: PROEL- A/G Ratio 1.4 (0.7-1.7); PROEL- Albumin 4.1 g/dL (2.9-4.4); PROEL- Alpha-1 Globulin 0.3 g/dL (0.0-0.4); PROEL- Alpha-2 Globulin 0.8 g/dL (0.4-1.0); PROEL- Gamma Globulin 0.8 g/dL (0.4-1.8); PROEL- Globulin, Total 2.9 g/dL (2.2-3.9)
[2022-07-27 18:25] LABS: ANTINUCLEAR ANTIBODIES DIRECT Negative (Negative)
== END | disposition home or self-care (01) ==
PROVIDERS: PCP Family Medicine; Visit Provider Family Medicine
DX: M54.9 Dorsalgia, unspecified (principal); E83.52 Hypercalcemia
CPT/HCPCS: 36415; 72110; 80053; 82043; 82306; 82570; 83970; 84165; 85025; 86038; 86140

== ENCOUNTER → 2022-08-04 | Outpatient (CLI) | payer MEDICARE, OTHER, SELFPAY ==
--- NOTE | 2022-08-04 12:06 | US_ITS ---
STUDY: THYROID ULTRASOUND REASON FOR EXAM: Female, 81 years old. Elevated parathyroid. TECHNIQUE: Ultrasound evaluation of the thyroid was performed with real-time and static henderson-scale imaging. COMPARISON: None. FINDINGS: RIGHT LOBE: The right lobe of the thyroid gland measures 4 x 1.6 x 1.4 cm. There is a heterogeneous echotexture. There are multiple nodules. There is a 0.4 x 0.5 x 0.4 cm nodule with extensive rim calcification which obscures the mass. There is also a 0.6 x 0.7 x 0.6 cm hypoechoic nodule in the lateral mid thyroid. Additionally there is 0.9 x 0.9 x 0.5 cm hypoechoic nodule in lower pole. The low inferior pole there is a large 1.3 x 1.9 x 0.9 cm heterogenous predominantly solid hypoechoic nodule. LEFT LOBE: The left lobe of the thyroid gland measures 3.3 x 1.2 x 1.3 cm. There is a heterogeneous echotexture. In the upper left thyroid there is a 0.4 x 0.5 x 0.2 cm isoechoic nodule with linear isoechoic focus. There is also a 0.8 x 0.9 x 0.6 cm isoechoic predominantly solid nodule ISTHMUS: The isthmus measures 0.1 cm. The regional lymph nodes are normal. US/Thyroid IMPRESSION: 1. Bilateral thyroid nodules. 2. Large nodule lower pole right thyroid. This is moderately suspicious, TR 4, by TI-RADS categorization. FNA recommended. The remainder of the nodules do not require follow-up or FNA due to their small size. 3. If there is concern for parathyroid adenoma, nuclear medicine study is recommended. Electronically Signed: Karl Blandon DO at 21:52 EDT Reading Location ID and State: [address] [place] [address] Tel [phone], Service support ,
== END | disposition home or self-care (01) ==
LOC: US 12:06
PROVIDERS: PCP Family Medicine; Visit Provider Family Medicine
DX: E04.9 Nontoxic goiter, unspecified (principal)
CPT/HCPCS: 76536

== ENCOUNTER 2022-08-30 14:10 | Outpatient (CLI) | payer MEDICARE, OTHER, SELFPAY ==
[2022-08-30 14:50] LABS: T3 Total - Triiodothyronine 0.97 ng/mL (0.6-1.81)
[2022-08-30 14:57] LABS: Thyroid Stim Hormone (TSH) 2.47 uIU/mL (0.358-3.74)
== END 2022-08-30 23:59 | disposition home or self-care (01) ==
LOC: PAVLAB 14:12
PROVIDERS: PCP Family Medicine; Referring Provider Surgery; Visit Provider Surgery
DX: E04.1 Nontoxic single thyroid nodule (principal)
CPT/HCPCS: 36415; 84436; 84443; 84480

== ENCOUNTER → 2022-09-08 | Outpatient (CLI) | payer MEDICARE, OTHER, SELFPAY ==
--- NOTE | 2022-09-08 15:00 | FLU_PTH ---
PATIENT: MARTITA BENNETT LOC: [facility]#:[id number] AGE/SX: 81/F ROOM: RE09/08/[address]: Dr. Marcus Dahl MD : 1940 BED: DIS: 09/08/2022 SPEC #: [id number] RECD: 09/08/22 16:42 STATUS: RYLAN DARIUSZ #: [id number] PRISCILLA: 09/08/22 15:[address]: Marcus Dahl DEPT: CYTOLOGY RECD BY: Abena Moyer ENTERED: 09/09/22 08:39 SP TYPE: Fluid OTHR DR: Dr. Martine Chappell MD Tissues: A - Thyroid gland, NOS B - Thyroid gland, NOS Procedures: Special Stain Group II Surgery Specimen Level IV Cytospin Fluid Cytology Other HEADER OPERATION: Fine needle aspiration right inferior pole of thyroid PRE-OP DIAGNOSIS: Right thyroid nodule TISSUE SUBMITTED: A ? FNA right thyroid nodule fluid, B - FNA right thyroid nodule slides x4 DIAGNOSIS CYTOLOGY A. Fine needle aspiration, right thyroid nodule fluid (cytospin and cell block): Negative for malignant cells. Follicular cells are not present. B. Fine needle aspiration, right thyroid nodule (smears): Atypia of undetermined significance ([place] Category III). Adequate for evaluation. See comment. AM:tiffany 09/12/2022 COMMENT B. The [place] System for thyroid diagnostic categorization was used in the evaluation of this case. The specimen is adequate for evaluation. Case has been reviewed in consultation with Dr. Champion who concurs with the above diagnosis. IDC:SJ CYTOLOGY STUDY Slides are reviewed. CYTOLOGY GROSS A - Received is 30 ml of light red fluid labeled with the patient's name and and designated per the requisition as right thyroid nodule. Submitted for cytology preparation including cell block. B - Received are four smears labeled with the patient's name and designated per the requisition as right thyroid nodule. Submitted for staining. / tiffany 09/09/2022 TC:? CPT: 87698 x2, 61498
== END | disposition home or self-care (01) ==
LOC: LABSPEC 17:51
PROVIDERS: PCP Family Medicine; Referring Provider Surgery; Visit Provider Surgery
DX: E04.1 Nontoxic single thyroid nodule (principal)
CPT/HCPCS: 88108; 88161; 88305; 88313

== ENCOUNTER → 2022-09-22 | Outpatient (CLI) | payer MEDICARE, OTHER, SELFPAY ==
--- NOTE | 2022-09-22 08:26 | BD_ITS ---
STUDY: DUAL ENERGY X-RAY ABSORPTIOMETRY / DXA REASON FOR EXAM: Female, 81 years old. Hyperparathyroidism TECHNIQUE: Bone Mineral Density (BMD) measurements of lumbar spine and right hip were obtained. COMPARISON: None. FINDINGS: Lumbar Spine (L1-L4): g/cm2 (1.041) / T-score (0.2) / Z-score (3.0) Findings are suggestive of normal bone density with a low fracture risk. Right Femur Total: g/cm2 (0.708) / T-score (-1.9) / Z-score (0.4) Right Femoral Neck: g/cm2 (0.634) / T-score (-1.9) / Z-score (0.5) BD/Dexa Bone Density Study IMPRESSION: The patient is considered osteopenic as outlined below according to World [place] Organization (WHO) criteria with a moderate fracture risk. Reference Information: The T-score is the number of standard deviations above or below the standard which is normal for young adults at their peak bone mineral density. The World Health Organization (WHO) interprets the T-scores as follows: Above -1 Normal bone density Between -1 and -2.5 Osteopenia Equal to / or below -2.5 Osteoporosis As a practical clinical guideline, osteopenia may be graded as follows: Mild -1 through -1.5 Moderate -1.6 through -2.0 Severe -2.1 through -2.4 The Z-score is the number of standard deviations above or below age-matched controls. A Z-score of less than -1.5 would be considered abnormal. References: 1. NIH Osteoporosis and Related Bone Diseases www osteo.org 2. International Society for Clinical Densitometry www iscd.org 3. National Osteoporosis Foundation www nof.org Electronically Signed: Derrick Burnette MD at 13:28 EST ,
--- NOTE | 2022-09-22 08:45 | NM_ITS ---
CLINICAL: 81-year-old female with history of clinical hyperparathyroidism. 99m Tc SESTAMIBI DUAL PHASE PLANAR and SPECT PARATHYROID SCINTIGRAPHY COMPARISON: Thyroid ultrasound report 08/04/2022 FINDINGS: Following the intravenous administration of 28.2 mCi of 99m Tc sestamibi, planar image acquisitions of the anterior neck at 15 minutes and 2.0 hours post radiopharmaceutical provision and SPECT reconstructions obtained at 2.0 hours reveal: 1. Immediate static blood pool acquisitions demonstrate distribution of the radiopharmaceutical in the right-left thyroid colloid with focal isthmus concentration of the radiopharmaceutical. 2. Delayed planar images depict incomplete relatively symmetric washout of the radiopharmaceutical from the thyroid beds there is no scintigraphic evidence of focal retention of the radiopharmaceutical on review of provided image acquisitions. Emission computed tomographic reconstructions of the anterior neck reveal confirmation of the planar projection findings. NM/Parathyroid SPECT w/ CONCUR CT IMPRESSION: 1. NEGATIVE 99m Tc SESTAMIBI PLANAR-SPECT PARATHYROID IMAGING DUAL PHASE EXAMINATION. 2. Incomplete-delayed washout of the radiopharmaceutical from the entire functioning thyroid colloid may be secondary to multinodular goiter, chronic lymphocytic thyroiditis. (Nieves, Radiographics 19: 601, 1999). Electronically Signed: Dnoi Mederos, at 17:22 EST ,
== END | disposition home or self-care (01) ==
LOC: NM 08:14
PROVIDERS: PCP Family Medicine; Referring Provider Surgery; Visit Provider Surgery
DX: E21.0 Primary hyperparathyroidism (principal); M85.80 Other specified disorders of bone density and structure, unspecified site
CPT/HCPCS: 77080; 78072; A9500

== ENCOUNTER → 2022-10-18 | Outpatient (CLI) | payer MEDICARE, OTHER, SELFPAY ==
--- NOTE | 2022-10-18 10:15 | FLU_PTH ---
PATIENT: MARTITA BENNETT LOC: [facility] U#:[id number] AGE/SX: 81/F ROOM: RE10/18/[address]: Dr. Marcus Dahl MD : 1940 BED: DIS: 10/18/2022 SPEC #: [id number] RECD: 10/18/22 11:01 STATUS: RYLAN RERachel #: [id number] PRISCILLA: 10/18/22 10:[address]: Marcus Dahl DEPT: CYTOLOGY RECD BY: Abena Moyer ENTERED: 10/18/22 12:41 SP TYPE: Fluid OTHR DR: Dr. Martine Chappell MD Tissues: A - Thyroid gland, NOS B - Thyroid gland, NOS Procedures: Special Stain Group II Surgery Specimen Level IV Cytospin Fluid Cytology Other HEADER OPERATION: Fine needle aspiration right inferior thyroid nodule PRE-OP DIAGNOSIS: Right inferior thyroid nodule TISSUE SUBMITTED: A ? FNA right inferior thyroid nodule fluid, B ? FNA right inferior thyroid nodule x4 slides DIAGNOSIS CYTOLOGY A. Right inferior thyroid nodule, fine needle aspiration (cytospin and cell block): Consistent with benign follicular/colloid nodule ([place] Category II). Adequate for evaluation. See comment. B. Right inferior thyroid nodule, fine needle aspiration (smears): Consistent with benign follicular/colloid nodule ([place] Category II). Adequate for evaluation. See comment. SJ:rg 10/19/2022 COMMENT Correlation with clinical, radiologic findings and appropriate follow up are necessary. Per recommendations and a clinician-approved plan (a call was made to the referring doctor about the recommendation), genomic testing (Afirma) has been submitted. Results will be reported as an addendum and faxed to clinician. Please make reference to previous specimen ([id number]) FNA, right thyroid nodule with diagnosis of ?atypia of undetermined significance ([place] Category III).? CYTOLOGY STUDY Slides are reviewed. CYTOLOGY GROSS A - Received is 30 ml of red cloudy fluid labeled with the patient's name and and designated per the requisition as right inferior thyroid nodule. Submitted for cytology preparation including cell block. B - Received are four smears labeled with the patient's name and designated per the requisition as right inferior thyroid nodule. Submitted for staining. / tiffany 10/18/2022 TC:5 CPT: 89663 x2, 72272
== END | disposition home or self-care (01) ==
LOC: LABSPEC 11:44
PROVIDERS: PCP Family Medicine; Visit Provider Surgery
DX: E04.1 Nontoxic single thyroid nodule (principal)
CPT/HCPCS: 88108; 88161; 88305; 88313

== ENCOUNTER → 2023-01-02 | Outpatient (CLI) | payer MEDICARE, OTHER, SELFPAY ==
[2023-01-02 15:58] LABS: Calcium,Total 10.3 mg/dL (8.5-10.1); Thyroid Stim Hormone (TSH) 2.93 uIU/mL (0.358-3.74)
[2023-01-03 08:33] LABS: PTHIN 248.3 pg/mL (18.4-80.1)
== END | disposition home or self-care (01) ==
LOC: MFPLAB 11:45
PROVIDERS: PCP Family Medicine; Visit Provider Family Medicine
DX: E03.9 Hypothyroidism, unspecified (principal)
CPT/HCPCS: 36415; 82310; 83970; 84443

== ENCOUNTER → 2023-01-27 | Outpatient (CLI) | payer MEDICARE, OTHER, SELFPAY ==
--- NOTE | 2023-01-27 15:26 | RAD_ITS ---
STUDY: X-RAY CHEST REASON FOR EXAM: Female, 82 years old. ORTHOPNEA TECHNIQUE: Frontal and lateral views of the chest. COMPARISON: 10/26/2020. FINDINGS: There is hyperinflation of the lungs consistent with chronic obstructive lung disease (COPD). No infiltrates or effusions are seen. There is no demonstrated pleural abnormality. Normal size heart. Normal mediastinum and sonia. Normal visualized pulmonary arteries. Normal visualized aortic arch and descending thoracic aorta. Moderate hiatal hernia. There are diffuse degenerative changes of the visualized thoracic spine. Normal visualized ribs, clavicles, and shoulders. There is no demonstrated abnormality of the visualized soft tissue structures of the upper abdomen. RAD/Chest PA and Lateral IMPRESSION: There are findings consistent with COPD. There is no evidence of acute chest disease. Electronically Signed: Iker Connell MD at 20:13 EDT ,
[2023-01-27 17:55] LABS: Absolute Lymphocyte Count 1.66 X10^3/uL (0.83-4.51); Absolute Neutrophil Count 3.9 X10^3/uL (2.0-7.7); Basophil# 0.05 X10^3/uL; Basophil% 0.8 % (0-1); Eosinophil# 0.26 X10^3/uL; Eosinophils% 4.1 % (0-5); Hematocrit 41.5 % (37-47); Hemoglobin 12.5 g/dL (12.0-15.0); Lymphocyte # 1.66 X10^3/ul (0.83-4.51); Lymphocyte % 26.2 % (19-41); Mean Corp Hgb Conc 30.1 g/dL (32-36); Mean Corpuscular Hgb 26.1 pg (27.0-32.0); Mean Corpuscular Volume 86.6 fL (81-99); Mean Platelet Vol. 11.3 fl (6.2-12.0); Monocyte# 0.47 X10^3/uL; Monocyte% 7.4 % (0-10); NRBC Flagged by Analyzer 0 % (0-5); Neutrophil # 3.85 X10^3/uL (2.7-7.7); Neutrophil % 60.9 % (47-70); Platelet Count 260 K/mm3 (150-450); RBC Distribution Width CV 17.2 % (11.6-14.6); RBC Distribution Width SD 54.5 fl (35.1-43.9); Red Blood Count 4.79 M/mm3 (4.2-5.4); White Blood Count 6.3 K/mm3 (4.4-11.0)
[2023-01-27 18:17] LABS: BNP,B-Type NATRIURETIC PEPTIDE 48.4 pg/mL (0-100)
[2023-01-27 18:31] LABS: ALB/GLOB Ratio 1.1 RATIO (0.9-2.4); AST(SGOT) 25 U/L (15-37); Alanine Aminotransfer ALT/SGPT 24 U/L (13-56); Albumin, Serum 3.7 g/dL (3.2-5.0); Alkaline Phosphatase 61 U/L (45-117); Anion Gap 2 (5-15); BUN 19 mg/dL (7-18); BUN/Creat Ratio 20.5 RATIO (10-20); Calcium,Total 10.8 mg/dL (8.5-10.1); Chloride 103 mmol/L (98-107); Creatinine, Serum 0.93 mg/dL (0.55-1.02); EST Glomerular Filtration Rate 61 mL/min (>60); Est Glom Filt Rate - Afr Amer 74 mL/min (>60); Globulin 3.5 g/dL (2.2-4.2); Glucose 92 mg/dL (74-106); Potassium 4.6 mmol/L (3.5-5.1); Protein, Total 7.2 g/dL (6.4-8.2); Sodium Level 137 mmol/L (136-145); Thyroid Stim Hormone (TSH) 1.58 uIU/mL (0.358-3.74)
== END | disposition home or self-care (01) ==
LOC: MTLAB 15:22
PROVIDERS: PCP Family Medicine; Referring Provider Family Medicine; Visit Provider Family Medicine
DX: R06.02 Shortness of breath (principal); R06.01 Orthopnea; E03.9 Hypothyroidism, unspecified
CPT/HCPCS: 36415; 71046; 80053; 83880; 84443; 85025

== ENCOUNTER 2023-01-30 08:01 | Emergency (ER) | payer MEDICARE, OTHER, SELFPAY ==
[2023-01-30 08:02] VITALS: BP 150/69; PULSE 57; RESP 18; TEMP 36; O2SAT 97; BMI 30.3
--- NOTE | 2023-01-30 08:44 | EX.ED.DYSGE1 ---
HPI History of Present Illness Chief Complaint: Shortness of Breath Narrative Narrative: 82-year-old female presenting with mild dyspnea and orthopnea. She states this has been ongoing for the last several days. She saw her PCP 2 days ago and she had a chest x-ray and lab work drawn which was normal. Patient was told to increase her 40 mg of Lasix to 80 mg of Lasix x1 day and if this did not improve her dyspnea she was to go to the emergency room. Patient does not have any chest pain. She feels otherwise well. No fevers or chills. [facility] Medical History Amaurosis fugax of right eye Blurry vision, right eye Cataract COPD (chronic obstructive pulmonary disease) COPD with exacerbation Essential (primary) hypertension Gastroenteritis Hyponatremia IBS (irritable bowel syndrome) Mixed hyperlipidemia Paroxysmal atrial fibrillation Tachy-chikis syndrome TIA (transient ischemic attack) Trigger finger Vaso vagal episode Vasovagal syncope Vertigo Home Medications levothyroxine 50 mcg tablet 50 mcg PO DAILY thyroid 90 days #90 tabs 01/15/18 [History Last Taken 07/31/21] acetaminophen 650 mg tablet,extended release 650 mg PO DAILY PRN PRN arthritis pain 12/03/19 [History Last Taken 12/02/19] albuterol sulfate 90 mcg/actuation aerosol inhaler 2 puff inhalation Q6H PRN Breathing 05/14/20 [History Last Taken Unknown] simvastatin 40 mg tablet 40 mg PO QHS cholesterol 10/17/20 [History Last Taken 07/31/21] esomeprazole magnesium 40 mg capsule,delayed release 40 mg PO DAILY GERD 05/12/22 [History Last Taken Unknown] alendronate 35 mg tablet 35 mg PO QWEEK osteoporosis 84 days #12 tabs 08/30/22 [History Last Taken Unknown] apixaban 5 mg tablet 5 mg PO BID blood thinner 08/30/22 [History Last Taken Unknown] gabapentin 100 mg capsule 100 mg PO TID 08/30/22 [History Last Taken Unknown] sotalol 80 mg tablet 80 mg PO BID heart #180 tabs 09/27/22 [Rx Last Taken Unknown] furosemide 40 mg tablet 40 mg PO DAILY #90 tabs 12/05/22 [Rx Last Taken Unknown] potassium chloride 20 mEq tablet,extended release 40 meq PO DAILY #180 tabs 12/05/22 [Rx Last Taken Unknown] Allergy/AdvReac Type Severity Reaction Status Date / Time ceftriaxone [From Rocephin] Allergy Hives Verified 01/30/23 08:02 doxycycline [From Vibramycin] Allergy Hives Verified 01/30/23 08:02 oxycodone [From OxyContin] Allergy hallucinati Verified 01/30/23 08:02 ons Family History Mother pacemaker Kidney disease Thyroid disorder Daughter Arthritis Asthma Diabetes Heart disease Thyroid disorder Daughter CAD (coronary artery disease) Diabetes Hypertension Sister CVA (cerebral vascular accident) Surgical History History of appendectomy History of bilateral knee replacement History of hernia surgery History of hip replacement Hx Sigmoidectomy Social History Smoking Status: Former smoker alcohol intake: never substance use type: does not use caffeine: Yes Type: coffee what type of physical activity do you participate in: bicycling frequency: daily duration: 15-30 minutes/day seatbelt use: always do you feel safe at home: Yes ROS ROS ED Constitutional Constitutional ED: Denies chills, fever(s) or sweats Eyes Eyes: Denies blurry vision or change in vision ENT ENT ED: Denies ear pain or sore throat Cardiovascular Cardiovascular: Reports orthopnea; Denies chest pain, palpitations or racing heartbeat Respiratory/Chest Respiratory/Chest: Reports dyspnea and orthopnea; Denies cough or sputum Gastrointestinal Gastrointestinal: Denies abdominal pain, constipation, diarrhea, nausea or vomiting Genitourinary Genitourinary ED: Denies dysuria, hematuria or urinary frequency Musculoskeletal Musculoskeletal: Denies arthralgias, myalgias or neck pain Integumentary Denies abscess, Abrasions or rash Neurologic Neurologic: Denies headache(s), paresthesias or weakness Psychiatric Psychiatric: Denies anxiety, depression, suicidal ideation or suicidal thoughts Endocrine Endocrinology: Denies polydipsia or polyuria EXAM Physical Exam Const Vital Signs: 01/30/23 08:02 Temperature 96.8 F L Temperature Source Temporal Pulse Rate 57 L Respiratory Rate 18 Blood Pressure 150/69 H Blood Pressure Mean 96 Pulse Ox 97 Oxygen Delivery Method Room Air Positive well nourished General Appearance ED: NAD; Negative for pallor Eyes PERRL and EOMs intact bilaterally Neck no lymphadenopathy Chest Wall palpation of chest normal Resp normal respiratory effort and clear to auscultation bilaterally Auscultation: Negative for rales, rhonchi or wheezes Cardio regular rate and regular rhythm Neuro oriented x3 and CN's II-XII intact bilaterally Sensorium / Orientation: alert Motor Exam: strength 5/5 throughout Psych mental status grossly normal Skin no rashes or lesions noted General Skin Exam: Negative for jaundice or pallor MDM MDM MDM Narrative Medical decision making narrative: 82-year-old female well-appearing. She has some mild dyspnea and orthopnea. She is already seen her primary care provider. I did review her normal CBC, BMP, BNP. She had a two-view x-ray which showed no acute abnormalities. She is presenting today with continued orthopnea and some mild dyspnea. She states she walks with a cane and has not had any difficulties. No lower extremity edema. Patient was discussed with Dr. Hawk who is on-call for Dr. Noriega. Since he already had lab work done this week and a chest x-ray recommendation is to double her Lasix for 3 days and call the heart group for follow-up. Patient minimal this plan. She discharged stable condition. Impression: 1. Orthopnea 2. History of CHF Discharge Plan Triage Chief Complaint: Shortness of Breath ED Provider: Cristofer Levy Dx/Rx/DC Orders Instructions: ED Heart Failure, Congestive (CHF) Prescriptions: No Action levothyroxine 50 mcg tablet 50 mcg PO DAILY 90 Days Qty: 90 Label Comments: alendronate 35 mg tablet 35 mg PO QWEEK 84 Days Qty: 12 Label Comments: Rx Instructions: saturdays albuterol sulfate 90 mcg/actuation HFA aerosol inhaler 2 puff INHALATION Q6H PRN (Reason: Breathing) apixaban 5 mg tablet 5 mg PO BID gabapentin 100 mg capsule 100 mg PO TID Label Comments: two in AM two PM and three HS acetaminophen 650 MG tablet extended release 650 mg PO DAILY PRN PRN (Reason: arthritis pain) simvastatin 40 MG tablet 40 mg PO QHS esomeprazole magnesium 40 mg capsule,delayed release(DR/EC) 40 mg PO DAILY sotalol 80 mg tablet 80 mg PO BID Qty: 180 3RF potassium chloride 20 mEq tablet extended release 40 meq PO DAILY Qty: 180 3RF furosemide 40 mg tablet 40 mg PO DAILY Qty: 90 3RF Primary Care Provider: Martine Chappell Referrals: Martine Chappell MD [Primary Care Provider] - Disposition Disposition: Home, Self Care Discharge Date/Time: 01/30/23 08:48
== END 2023-01-30 08:48 | disposition home or self-care (01) ==
LOC: ED 08:22
PROVIDERS: Emergency Provider Student in an Organized Health Care Education/Training Program; PCP Family Medicine; Visit Provider Student in an Organized Health Care Education/Training Program
DX: R06.01 Orthopnea (principal); J44.9 Chronic obstructive pulmonary disease, unspecified; I11.0 Hypertensive heart disease with heart failure; I50.9 Heart failure, unspecified; I48.0 Paroxysmal atrial fibrillation; E78.2 Mixed hyperlipidemia; Z87.891 Personal history of nicotine dependence; Z79.899 Other long term (current) drug therapy; Z79.01 Long term (current) use of anticoagulants
CPT/HCPCS: 99282

== ENCOUNTER → 2023-04-13 | Outpatient (CLI) | payer MEDICARE, OTHER, SELFPAY ==
--- NOTE | 2023-04-13 08:59 | ECHOCS_ITS ---
Reason For Study: CHF Procedure This was a 2D Doppler, Color Flow transthoracic echocardiogram. The study was technically difficult. Contrast injection was performed. Exam performed in department. Left Ventricle Normal LV size. Left ventricular systolic function is normal. Stage 2 diastolic dysfunction. The left ventricular ejection fraction is 60 %. No regional wall motion abnormalities noted. Right Ventricle Normal RV size. Normal systolic function. Atria Normal left atrium. Normal right atrium. Mitral Valve Normal mitral valve. Mild (1+) eccentric mitral valve insufficiency. Tricuspid Valve Normal tricuspid valve. Mild (1+) tricuspid valve insufficiency. Pulmonary artery systolic pressure is 32 mmHg. Aortic Valve Trisinus/trileaflet aortic valve. Pulmonic Valve Normal pulmonic valve. Great Vessels Normal aortic root. The pulmonary artery is normal size. Normal inferior vena cava. Pericardium/Pleural No pericardial effusion. Medication 22 gauge I.V. with prn adaptor inserted into right arm. Diluted definity 3ml given slow IV push to enhance endocardial definition. MMode/2D Measurements & Calculations LVIDd: 5.3 cm IVSd: 0.96 cm Ao root diam: 3.1 cm LVIDs: 3.9 cm LVPWd: 1.1 cm LA dimension: 3.6 cm RVDd: 4.0 cm FS: 27.3 % LAV(MOD-bp): 47.0 ml LVAd ap4: 28.9 cm2 SV(MOD-sp4): 59.0 ml LAV(MOD-bp) Indexed: 25.2 ml/m2 LVLd ap4: 6.8 cm LAV(MOD-sp2): 45.3 ml EDV(MOD-sp4): 97.9 ml LAV(MOD-sp4): 47.9 ml EDV(sp4-el): 103.5 ml LVAs ap4: 16.1 cm2 LVLs ap4: 5.6 cm ESV(MOD-sp4): 38.8 ml ESV(sp4-el): 39.0 ml EF(MOD-sp4): 60.3 % EF(sp4-el): 62.3 % SV(sp4-el): 64.5 ml LA A4 area: 18.3 cm2 RA A4 area: 13.5 cm2 Time Measurements MV dec time: 0.15 sec Doppler Measurements & Calculations MV E max diego: 84.3 cm/sec Lat Peak E' Diego: 8.0 cm/sec Med Peak E' Diego: 4.9 cm/sec MV A max diego: 64.1 cm/sec E/E' lat: 10.5 E/E' med: 17.3 MV E/A: 1.3 MV V2 max: 115.3 cm/sec MV P1/2t max diego: 116.3 cm/sec Ao V2 max: 144.0 cm/sec MV max P.3 mmHg MV P1/2t: 65.2 msec Ao max P.3 mmHg MV V2 mean: 46.6 cm/sec Ao V2 mean: 98.1 cm/sec MV mean P.2 mmHg MV dec slope: 522.5 cm/sec2 Ao mean P.4 mmHg MV V2 VTI: 46.9 cm MVA(P1/2t): 3.4 cm2 Ao V2 VTI: 36.5 cm AV (velocity ratio): 0.73 LV V1 max: 107.6 cm/sec MR max diego: 535.3 cm/sec PA V2 max: 96.8 cm/sec LV V1 max P.6 mmHg MR max P.6 mmHg PA V2 mean: 71.1 cm/sec LV V1 mean P.4 mmHg MR mean diego: 433.8 cm/sec LV V1 mean: 72.1 cm/sec MR mean P.4 mmHg LV V1 VTI: 26.6 cm MR VTI: 250.1 cm TR max diego: 266.3 cm/sec TR max P.4 mmHg ECHO/Echo Complete W/ Contrast Interpretation Summary Normal LV size. Left ventricular systolic function is normal. Stage 2 diastolic dysfunction. The left ventricular ejection fraction is 60 %. Pulmonary artery systolic pressure is 32 mmHg. Contrast injection was performed. Ordering Physician: Antione Carvalho V Referring Physician: Martine Chappell M.D. Performed By: Ez Lindsay RCS
== END | disposition home or self-care (01) ==
LOC: CVS 08:58
PROVIDERS: PCP Family Medicine; Referring Provider Internal Medicine Pulmonary Disease; Visit Provider Internal Medicine Pulmonary Disease
DX: I50.32 Chronic diastolic (congestive) heart failure (principal)
CPT/HCPCS: 93306; Q9957; A4216; C8929

== ENCOUNTER → 2023-08-10 | Outpatient (CLI) | payer MEDICARE, OTHER, SELFPAY ==
[2023-08-15 19:07] LABS: Immunoglobulin A 207 mg/dL (64-422); Immunoglobulin E 11 IU/mL (6-495); Immunoglobulin G 968 mg/dL (586-1602); Immunoglobulin M 103 mg/dL (26-217); Mycoplasma Pneum AB IgG 642 U/mL (0-99); Mycoplasma pneum. AB IgM < 770 U/mL (0-769)
== END | disposition home or self-care (01) ==
PROVIDERS: PCP Family Medicine; Referring Provider Internal Medicine Pulmonary Disease; Visit Provider Internal Medicine Pulmonary Disease
DX: R06.02 Shortness of breath (principal)
CPT/HCPCS: 36415; 82784; 82785; 86738

== ENCOUNTER → 2023-09-04 | Outpatient (CLI) | payer MEDICARE, OTHER, SELFPAY ==
--- NOTE | 2023-09-04 13:50 | ST.MBS ---
Modified Barium Swallow Patient Information Study Date: 09/04/23 Study Time: 13:00 Direct Billable Minutes: 95 Total Minutes procedure & reportin Diagnosis: Shortness of breath R06.02, COPD J44.9 Referring Physician: Antione Carvalho V Reason for Referral: Objectively assess swallow function, assess risk for aspiration, and determine recommendations for least restrictive diet textures and compensatory strategies to improve safety of swallow. Medical History: PMH: recent L sided PNA (06/11/2023 - [facility] TIA, COPD, hiatal hernia, GERD (managed by omeprazole), CHF (SEE EMR for full H&P) The patient denies dysphagia or s/s of aspiration with food or drink. She reported esophageal issues d/t hiatal hernia >5 years ago. Current Diet Ordered: Regular textures / Thin liquids Dentition: Missing Teeth Mental Status: WNL Respiratory Status: Oxygenating on Room Air Penetration-Aspiration Scale Penetration-Aspiration Scale: OBJECTIVE ASSESSMENT OF SWALLOW FUNCTION (QUANTITATIVE ? PER TRIAL): PENETRATION / ASPIRATION SCALE (MENDOZA): 1 = does not enter airway 2 = enters airway/above vocal folds/ejected 3 = enters airway/above vocal folds/not ejected 4 = enters airway/contacts vocal folds/ejected 5 = enters airway/contacts vocal folds/not ejected 6 = enters airway/below vocal folds/ejected 7 = enters airway/below vocal folds/not ejected despite effort 8 = enters airway/below vocal folds/no effort VIDEOFLOROSCOPIC SCALE SCORE (MENDOZA): Grade I = aspiration of material that has penetrated into the laryngeal vestibule, intact cough reflex Grade II = aspiration < 10 % of the bolus, intact cough reflex Grade III = aspiration of < 10 % of the bolus, reduced cough reflex or aspiration of > 10 % of the bolus, intact cough reflex Grade IV = aspiration of > 10 % of the bolus, reduced cough reflex Penetration-Aspiration Scale Score Thin Liquid via teaspoon: Result: 2= enter airway/above vocal folds/ejected Thin Liquid via teaspoon Trial 2: Result: 2= enter airway/above vocal folds/ejected Thin Liquid via large single sip: cup: Result: 3= enters airways/above vocal folds/not ejected [place] Thick Liquid via large single sip: cup: Result: 2= enter airway/above vocal folds/ejected Pudding via teaspoon: Result: 1= does not enter airway Comment: ESOPHAGEAL SCREEN - complete clearance. 1/2 Cookie: Result: 1= does not enter airway Comment: ESOPHAGEAL SCREEN - retention throughout mid and lower esophagus. Thin Liquid via single sip: straw: Result: 2= enter airway/above vocal folds/ejected Comment: ESOPHAGEAL SCREEN - complete clearance. Thin Liquid via small single sip: cup: Result: 5= enters airways/contacts vocal folds/not ejected Thin Liquid via small single sip: cup Effortful swallow: Result: 2= enter airway/above vocal folds/ejected Oral Phase Labial Seal: No Labial Escape Tongue Control During Bolus Hold: Posterior escape of greater than half of bolus Bolus Preparation/Mastication: Slow prolonged chewing/mashing with complete recollection Bolus Transport/Lingual Motion: Delayed initiation of tongue motion Oral Residue: Residue collection on oral structures (large sips, cookie) Pharyngeal Phase Initiation of Pharyngeal Swallow: Bolus head in pyriforms Soft Palate Elevation: No bolus between soft palate and pharyngeal wall Laryngeal Elevation: Partial superior movement thyroid cart/partial apprx aryt-epig petiole Anterior Hyoid Excursion: Partial anterior movement Epiglottic Movement: Complete inversion Laryngeal Vestibule Closure at Height of Swallow: Incomplete; narrow column of air/contrast in laryngeal vestibule Pharyngeal Stripping Wave: Present - diminished Pharyngoesophageal Segment Opening: Parital distension and partial duration; parital obstruction of flow Tongue Base Retraction: Narrow column of contrast between tongue base & post. pharyngeal wall Pharyngeal Residue: Collection of residue within or on pharyngeal structures Esophageal Phase Esophageal Clearance: Esophageal retention Diagnosis/Impression Diagnosis: Mild oropharyngeal phase dysphagia R13.12 Impression: The oral phase is primarily marked by... -Decreased bolus control with >1/2 of the bolus spilling posteriorly to the pyriforms prior to swallow onset observed with large sips especially. -Delayed tongue motion for A-P transport. -Slow, but adequate mastication of cookie. The pharyngeal phase is primarily marked by... -Mildly decreased airway closure during the swallow due to decreased anterior hyoid excursion and laryngeal elevation. -Mildly decreased tongue base retraction, UES opening/duration, pharyngeal stripping wave, resulting in trace-mild pharyngeal residues after the swallow. -Delayed swallow onset. -Laryngeal penetration of thin liquids, which did not always reliably eject; however, no aspiration observed during the study. Deep trace laryngeal penetration of thin liquids via cup to the vocal folds on one occasion. Effortful swallow decreased amount and depth of laryngeal penetration. Recommendations Diet: Regular Textures and Thin Liquids Compensatory Strategies: Small Bites, Small Sips (hard/effortful swallows with sips), Slow Rate, Alternate bites/solids and sips/liquids (wash after every 1-2 bites), Sitting upright and Remain sitting upright for 30 minutes after PO intake Recommend Repeat Modified Barium Swallow: TBD Need for Skilled Speech Therapy Services: Yes Comment: Will recommend the patient for outpatient dysphagia therapy to address deficits in oropharyngeal swallow function. Will recommend the patient for oropharyngeal strengthening to improve lingual control, hyolaryngeal elevation/excursion, and tongue base retraction (lingual resistance exercises, Jeannie, CTAR, and Zunilda). The patient would benefit from thorough education regarding recommended diet textures and compensatory strategies. Recommended Referrals: GI Consult (Liquid wash was effective in clearing esophageal retention. If s/s of reflux or if experiencing regurgitation, please consult GI.) Education Completed: 1. Described result of evaluation. and 2. Pt understands evaluation & agrees with goals and treatment plan. Status Active ST Patient: Active Contact Information [facility] Speech Therapy:: Kiana Worthington M.A. [facility] Speech-Language Pathologist [facility] [address] [place] [address] [email or web address] [phone]
== END | disposition home or self-care (01) ==
LOC: RAD 12:24
PROVIDERS: PCP Family Medicine; Referring Provider Internal Medicine Pulmonary Disease; Visit Provider Internal Medicine Pulmonary Disease
DX: R06.02 Shortness of breath (principal)
CPT/HCPCS: 74230; 92611

== ENCOUNTER 2024-04-30 18:07 | Observation (INO) | payer MEDICARE, OTHER, SELFPAY ==
[2024-04-30 17:50] VITALS: BMI 31.3
--- NOTE | 2024-04-30 18:11 | HP.PCM.HOS_ITS ---
HPI - General General Date of Admission: 04/30/24 Date of Service: 04/30/24 Chief Complaint: shortness of breath and weakness HPI Narrative MARTITA BENNETT, is a 83-year-old female history of COPD, A-fib with cardioversion, heart failure with preserved ejection fraction, hypertension, hypothyroidism, TIA, GERD who presented to [facility] 04/30/2024 as a transfer from [place] [facility] for increasing shortness of breath and pneumonia v ersus a COPD. Patient presented there with shortness of breath since she woke up this morning and a questionable episode of hemoptysis, usually wears 1 L of nasal cannula at night for her COPD but did not wear it last night, was placed on O2 but continued to have shortness of breath. Was initially treated like a COPD exacerbation and then had CTA which showed no PE but a possible left lower lobe infiltrate. COVID-negative. Patient was on 3 L O2 at 92% and they attempted to wean off however patient 87% on room air without any ambulation or exertion so is felt she needed admitted and patient reportedly requested transfer to [place]. In the ED at [facility] patient 92% on 3 L but otherwise vitally stable, lactic 1.6 and no significant electrolyte abnormalities. Did have a troponin of 12 that increased at 30 and subsequently 53 but no chest pain and EKG x 2 unchanged. Transfer accepted for PCU ops for acute exacerbation of COPD versus pneumonia. Patient evaluated at bedside when she reports that this morning she woke up and was significantly dyspneic on exertion and overall weak, has had slight cough over the past couple days, had a headache this morning. In the ED at [facility] had 2 episodes where she had a little bit of blood in her sputum, some left-sided rib pain when coughing, no increased swelling or other acute complaints. [facility] Medical History Amaurosis fugax of right eye Blurry vision, right eye Cataract COPD (chronic obstructive pulmonary disease) COPD with exacerbation Essential (primary) hypertension Gastroenteritis Hyponatremia IBS (irritable bowel syndrome) Mixed hyperlipidemia Paroxysmal atrial fibrillation Tachy-chikis syndrome TIA (transient ischemic attack) Trigger finger Vaso vagal episode Vasovagal syncope Vertigo Home Medications ?Medication ?Instructions ?Recorded ?Last Taken ?Type levothyroxine 50 mcg tablet 50 mcg PO DAILY thyroid 90 days 01/15/18 07/31/21 History #90 tabs acetaminophen 650 mg 650 mg PO DAILY PRN PRN arthritis 12/03/19 12/02/19 History tablet,extended release pain simvastatin 40 mg tablet 40 mg PO QHS cholesterol 10/17/20 07/31/21 History esomeprazole magnesium 40 mg 40 mg PO DAILY GERD 05/12/22 Unknown History capsule,delayed release apixaban 5 mg tablet 5 mg PO BID blood thinner 08/30/22 Unknown History gabapentin 100 mg capsule 100 mg PO TID 08/30/22 Unknown History fluticasone fur. 100 mcg-umeclid 1 inh inhalation DAILY 05/11/23 Unknown History 62.5 mcg-vilant 25 mcg inhalat.powder (Trelegy Ellipta) trazodone 50 mg tablet 50 mg PO DAILY 08/10/23 Unknown History sotalol 80 mg tablet 40 mg (1/2 x 80 mg) PO BID heart 01/25/24 Unknown Rx #180 tabs Allergy/AdvReac Type Severity Reaction Status Date / Time ceftriaxone (From Rocephin) Allergy Hives Verified 01/25/24 09:57 doxycycline (From Vibramycin) Allergy Hives Verified 01/25/24 09:57 oxycodone (From OxyContin) Allergy hallucinati Verified 01/25/24 09:57 ons Family History Mother pacemaker Kidney disease Thyroid disorder Daughter Arthritis Asthma Diabetes Heart disease Thyroid disorder Daughter CAD (coronary artery disease) Diabetes Hypertension Sister CVA (cerebral vascular accident) Surgical History History of appendectomy History of bilateral knee replacement History of hernia surgery History of hip replacement Hx Sigmoidectomy Social History Smoking Status: Former smoker alcohol intake: never substance use type: does not use caffeine: Yes Type: coffee what type of physical activity do you participate in: bicycling frequency: daily duration: 15-30 minutes/day seatbelt use: always do you feel safe at home: Yes ROS ROS Narrative General: Denies fever/chills HENT: Headache earlier today, denies stuffy nose, denies sore throat EYES: Denies changes in vision Resp: Has had some cough, increased shortness of breath Cardiac: Denies chest pain GI: Denies abdominal pain, denies changes in bowel, denies nausea/vomiting : Denies changes in urination Extremity: Denies swelling MSK: Some generalized weakness Neuro: Denies any numbness/tingling Heme: Easy bruising Skin: Denies rashes Psychiatric: No complaints voiced Vital Signs Vital Signs Vital Signs: 04/30/24 17:55 Respiratory Effort Normal Non-Labored Respiratory Depth Normal Respiratory Pattern Normal Oxygen Delivery Method Nasal Cannula Oxygen Flow Rate (L/min) 2 Weight Weight: 90.7 kg Body Mass Index (BMI) 31.3 Physical Exam Narrative General: Alert, oriented, no apparent distress HEENT: Atraumatic, normocephalic Eyes: Anicteric, normal conjunctiva, extraocular movements grossly intact Neck: Supple Respiratory: Somewhat coarse at the bases, normal respiratory effort Cardiovascular: Irregular, not tachycardic GI: Soft, nontender, nondistended Extremities: No edema Musculoskeletal: Moving all extremities Neuro: No overt focal neurological deficits Skin: No rashes appreciated Psych: Cooperative Assessment & Plan Assessment/Plan (1) COPD (chronic obstructive pulmonary disease): (2) Diastolic congestive heart failure: (3) Essential (primary) hypertension: (4) Paroxysmal atrial fibrillation: PLAN: Plan # Hypoxia secondary to acute exacerbation of COPD on 1L home O2 qhs -Patient with wheezing and increased shortness of breath at outlying facility, imaging revealed a left lower lobe infiltrate however patient without a white count, afebrile, no productive cough and imaging report said consolidation similar to 2022 so she will be treated as a COPD exacerbation given increased SOB, hypoxia, and increased cough -Patient was 87% on room air at rest and 92% on 3 L prompting request for hospital admission and transfer -Admit to floor, continuous O2 monitoring -Reportedly COVID-negative, will check respiratory panel and sputum culture if able -O2 in place, wean as tolerated -IV methylprednisone 4 doses then po pred -Scheduled DuoNebs -Antibiotics: agumentin -Incentive spirometer -Mucinex -Did have some scant blood in sputum twice earlier today but non since that time and CTA no PE or other etiology identified so we will continue Eliquis with caution #Generalized weakness -Likely 2/2 hypoxia and #1, no focal complaints to suggest infection or other underlying problem #hx afib w/ cardioversion/hx TIA -On Eliquis -Continue medical management -Follows Dr. Noriega -Chronically on sotalol, continue present management # History of heart failure with preserved ejection fraction -Last echo 04/13/2023 with stage II diastolic dysfunction and EF of 60% -Does not appear to be overloaded -Daily weights -I's and O's -Patient did have troponin that trended up from 12 to 30-53 however suspect this is due to hypoxia and patient has no chest pain, no further workup at this time #Hypothyroidism -Continue Synthroid #GERD -Continue PPI #Hx HTN -Monitor BP #DVT ppx: On Eliquis Felipa Tenorio MD Time spent in the patient's overall evaluation,decision-making process, review of diagnostic data, adjustment of management, discussion with other providers, nursing nursing and ancillary staff involved in patient's care documentation, 58 minutes Charges/Coding Visit Charges Inpatient E&M: 46819 Init Hosp L2
[2024-04-30 20:30] VITALS: BP 99/50; PULSE 84; RESP 20; TEMP 36.1; O2SAT 95
[2024-04-30 22:00] VITALS: BP 102/58; PULSE 88; RESP 18; TEMP 36.3; O2SAT 93
[2024-04-30] MEDS: guaiFENesin 1,200 MG Tablet 1200 MG PO (22:30)
[2024-04-30] MEDS: traZODone 50 MG Tablet PO (22:31)
[2024-04-30] MEDS: Atorvastatin Calcium 20 MG Tablet PO (22:33)
[2024-04-30] MEDS: APIXABAN 5 MG TABLET PO (22:33)
[2024-04-30] MEDS: Sotalol Hydrochloride 80 MG Tablet 40 MG PO (22:36)
[2024-04-30] MEDS: Gabapentin 100 MG Capsule PO (22:42)
[2024-04-30] MEDS: 0.9% Saline Lock 10 ML Syringe IV (22:42)
[2024-04-30] MEDS: Pantoprazole Sodium 40 MG Tablet PO (23:14)
[2024-04-30] MEDS: Ipratropium/Albuterol Sulfate 3 ML AMPUL.NEB INHALATION (23:29)
[2024-04-30 23:36] VITALS: PULSE 64; RESP 18; O2SAT 95
[2024-04-30 23:59] VITALS: BP 106/74; PULSE 82; RESP 18; TEMP 36.2; O2SAT 93
[2024-05-01] VITALS (9 sets, daily range): BP systolic 102–125; BP diastolic 47–85; PULSE 61–82; RESP 16–18; TEMP 36.2–36.8; O2SAT 85–98; BMI 31.3
[2024-05-01] MEDS: MELATONIN 3 MG TABLET PO (01:29)
[2024-05-01] MEDS: Acetaminophen 325 MG Tablet 650 MG PO (02:23)
[2024-05-01 06:02] LABS: Absolute Lymphocyte Count 0.42 X10^3/uL (0.83-4.51); Absolute Neutrophil Count 11.2 X10^3/uL (2.0-7.7); Basophil# 0.02 X10^3/uL; Basophil% 0.2 % (0-1); Hematocrit 35.8 % (37-47); Hemoglobin 11.7 g/dL (12.0-15.0); Lymphocyte # 0.42 X10^3/ul (0.83-4.51); Lymphocyte % 3.5 % (19-41); Mean Corp Hgb Conc 32.7 g/dL (32-36); Mean Corpuscular Hgb 30.2 pg (27.0-32.0); Mean Corpuscular Volume 92.3 fL (81-99); Mean Platelet Vol. 10.7 fl (6.2-12.0); Monocyte# 0.35 X10^3/uL; Monocyte% 2.9 % (0-10); NRBC Flagged by Analyzer 0 % (0-5); Neutrophil # 11.15 X10^3/uL (2.7-7.7); POSITIVE DIFFERENTIAL YES; Platelet Count 196 K/mm3 (150-450); RBC Distribution Width CV 14.5 % (11.6-14.6); Red Blood Count 3.88 M/mm3 (4.2-5.4)
[2024-05-01 06:32] LABS: Anion Gap 5 (5-15); BUN 21 mg/dL (7-18); BUN/Creat Ratio 22.2 RATIO (10-20); Calcium,Total 10.1 mg/dL (8.5-10.1); Chloride 100 mmol/L (98-107); Creatinine, Serum 0.95 mg/dL (0.55-1.02); EST Glomerular Filtration Rate 60 mL/min (>60); Est Glom Filt Rate - Afr Amer 72 mL/min (>60); Estimated Creatinine Clearance 50.09 ml/min; Glucose 178 mg/dL (74-106); Potassium 4.2 mmol/L (3.5-5.1); Sodium Level 133 mmol/L (136-145)
[2024-05-01] MEDS: Levothyroxine 50 MCG Tablet PO (06:32)
[2024-05-01] MEDS: 0.9% Saline Lock 10 ML Syringe IV ×2 (06:32→13:27)
[2024-05-01] MEDS: Gabapentin 100 MG Capsule PO (06:32)
[2024-05-01] MEDS: Ipratropium/Albuterol Sulfate 3 ML AMPUL.NEB INHALATION ×2 (07:03→10:04)
[2024-05-01] MEDS: APIXABAN 5 MG TABLET PO (09:47)
[2024-05-01] MEDS: Amox/Clavulanate 875 MG Tablet PO (09:47)
[2024-05-01] MEDS: guaiFENesin 1,200 MG Tablet 1200 MG PO (09:48)
[2024-05-01] MEDS: Sotalol Hydrochloride 80 MG Tablet 40 MG PO (09:48)
--- NOTE | 2024-05-01 11:17 | PCM.DC ---
Discharge Instructions Diet Discharge Diet: Low fat / Low cholesterol Activity Discharge Activity: Return to Normal Activity Dressing / Incision Call your doctor if you observe: Fever of 101 or Higher, Shortness of breath, Dizziness, Fainting spells, Swelling in the ankles, Chest pain and Increased palpitations (irregular heartbeat) Follow Up Care Test Results: Test results from this visit will be discussed in further detail at your follow-up appointment, if applicable. Discharge Plan Admission Admit Date/Time: 04/30/24 18:07 Attending Provider: Wyatt Ruano Primary Care Provider: Martine Chappell Consulting Providers: Felipa Tenorio Discharge Orders/Prescriptions Prescriptions: New prednisone 20 mg Tablet 40 mg PO DAILY@0800 7 Days Qty: 14 0RF amoxicillin-pot clavulanate 875-125 mg Tablet 1 tab PO BIDCM 7 Days Qty: 14 0RF Continued levothyroxine 50 mcg tablet 50 mcg PO DAILY 90 Days Qty: 90 Patient Comments: apixaban 5 mg tablet 5 mg PO BID gabapentin 100 mg capsule 100 mg PO TID PRN (Reason: arthritis) Patient Comments: two in AM two PM and three HS Trelegy Ellipta 100-62.5-25 mcg blister with device 1 inh inhalation DAILY trazodone 50 mg tablet 50 mg PO DAILY sotalol 80 mg tablet 40 mg PO BID Qty: 180 3RF acetaminophen 650 MG tablet extended release 650 mg PO DAILY PRN PRN (Reason: arthritis pain) simvastatin 40 MG tablet 40 mg PO QHS esomeprazole magnesium 40 mg capsule,delayed release(DR/EC) 40 mg PO DAILY Referrals / Follow Up: Martine Chappell MD [Primary Care Provider] - Within 1 Week Disposition Disposition (needs filled in before D/C Order can be placed): Home, Self Care
--- NOTE | 2024-05-01 11:38 | CASEMGMT ---
Patient has order for discharge. Patient is requiring increase in home oxygen, script received. LIYAH PACHECO in to discuss discharge with patient, daughter at bedside. Patient states she has oxygen tanks at home, LIYAH PACHECO updated patient that she will have to have a tank at home for at discharge. Daughter states she can go to patient's home and corn picker tank. Patient denies needs or help at discharge. Daughter and patient wanting update as to what was going on with patient's hospitalization. LIYAH PACHECO stated she would update nursing and have them come and talk with patient and daughter. Patient and daughter voiced appreciation and denied further questions or concerns. LIYAH PACHECO sent updated script to [facility] Muller via [email or web address].
--- NOTE | 2024-05-01 12:07 | PHA.DC_ITS ---
Pharmacy [facility] Pharmacy Service has performed discharge medication reconciliation and counseling for this patient. 1. AUGMENTIN 875/125MG PO BID X 7 DAYS 2. PREDNISONE 40MG PO DAILYCM X 7 DAYS The patient's discharge medication list was reviewed for discrepancies and discrepancies were resolved. The patient was counseled on the following discharge medications and changes in medications for homegoing were reviewed. The Reason for Use, instructions for use, and potential side effects were reviewed for all new medications. The patient's questions regarding all of their medications were answered. The patient was able to verbally demonstrate an understanding of their discharge medications. Patient counseled by pharmacy benefits coordinatorAlfonso. Medications at Discharge Home Medications levothyroxine 50 mcg tablet 50 mcg PO DAILY thyroid 90 days #90 tabs 01/15/18 acetaminophen 650 mg tablet,extended release 650 mg PO DAILY PRN PRN arthritis pain 12/03/19 simvastatin 40 mg tablet 40 mg PO QHS cholesterol 10/17/20 esomeprazole magnesium 40 mg capsule,delayed release 40 mg PO DAILY GERD 05/12/22 apixaban 5 mg tablet 5 mg PO BID blood thinner 08/30/22 gabapentin 100 mg capsule 100 mg PO TID PRN arthritis 08/30/22 fluticasone fur. 100 mcg-umeclid 62.5 mcg-vilant 25 mcg inhalat.powder (Trelegy Ellipta) 1 inh inhalation DAILY breathing 05/11/23 trazodone 50 mg tablet 50 mg PO DAILY sleep 08/10/23 sotalol 80 mg tablet 40 mg (1/2 x 80 mg) PO BID heart #180 tabs 01/25/24 amoxicillin 875 mg-potassium clavulanate 125 mg tablet 1 tab PO BIDCM 7 days #14 tabs 05/01/24 prednisone 20 mg tablet 40 mg (2 x 20 mg) PO DAILY@0800 7 days #14 tabs 05/01/24
--- NOTE | 2024-05-01 13:30 | PCM.DC.SUM ---
Providers Date of Admission: 04/30/24 Primary Care Physician: Dr. Martine Chappell MD Reason For Visit: AECOPD Diagnosis Discharge Diagnosis (1) COPD (chronic obstructive pulmonary disease): Status: Chronic Code(s): J44.9 - Chronic obstructive pulmonary disease, unspecified (2) Diastolic congestive heart failure: Status: Chronic Code(s): I50.30 - Unspecified diastolic (congestive) heart failure (3) Essential (primary) hypertension: Status: Chronic Code(s): I10 - Essential (primary) hypertension (4) Paroxysmal atrial fibrillation: Status: Chronic Code(s): I48.0 - Paroxysmal atrial fibrillation Medications at Discharge Home Medications levothyroxine 50 mcg tablet 50 mcg PO DAILY thyroid 90 days #90 tabs 01/15/18 acetaminophen 650 mg tablet,extended release 650 mg PO DAILY PRN PRN arthritis pain 12/03/19 simvastatin 40 mg tablet 40 mg PO QHS cholesterol 10/17/20 esomeprazole magnesium 40 mg capsule,delayed release 40 mg PO DAILY GERD 05/12/22 apixaban 5 mg tablet 5 mg PO BID blood thinner 08/30/22 gabapentin 100 mg capsule 100 mg PO TID PRN arthritis 08/30/22 fluticasone fur. 100 mcg-umeclid 62.5 mcg-vilant 25 mcg inhalat.powder (Trelegy Ellipta) 1 inh inhalation DAILY breathing 05/11/23 trazodone 50 mg tablet 50 mg PO DAILY sleep 08/10/23 sotalol 80 mg tablet 40 mg (1/2 x 80 mg) PO BID heart #180 tabs 01/25/24 amoxicillin 875 mg-potassium clavulanate 125 mg tablet 1 tab PO BIDCM 7 days #14 tabs 05/01/24 prednisone 20 mg tablet 40 mg (2 x 20 mg) PO DAILY@0800 7 days #14 tabs 05/01/24 Hospital Course Operations None Procedures None Summary of Care Provided Minutes Spent on Discharge: 38 Hospital Course: Per HPI: MARTITA BENNETT, is a 83-year-old female history of COPD, A-fib with cardioversion, heart failure with preserved ejection fraction, hypertension, hypothyroidism, TIA, GERD who presented to [facility] 04/30/2024 as a transfer from [facility] for increasing shortness of breath and pneumonia versus a COPD. Patient presented there with shortness of breath since she woke up this morning and a questionable episode of hemoptysis, usually wears 1 L of nasal cannula at night for her COPD but did not wear it last night, was placed on O2 but continued to have shortness of breath. Was initially treated like a COPD exacerbation and then had CTA which showed no PE but a possible left lower lobe infiltrate. COVID-negative. Patient was on 3 L O2 at 92% and they attempted to wean off however patient 87% on room air without any ambulation or exertion so is felt she needed admitted and patient reportedly requested transfer to [place]. In the ED at [place] patient 92% on 3 L but otherwise vitally stable, lactic 1.6 and no significant electrolyte abnormalities. Did have a troponin of 12 that increased at 30 and subsequently 53 but no chest pain and EKG x 2 unchanged. Transfer accepted for PCU ops for acute exacerbation of COPD versus pneumonia. Patient evaluated at bedside when she reports that this morning she woke up and was significantly dyspneic on exertion and overall weak, has had slight cough over the past couple days, had a headache this morning. In the ED at [place] had 2 episodes where she had a little bit of blood in her sputum, some left-sided rib pain when coughing, no increased swelling or other acute complaints. Hospital Course: 1. Acute on chronic hypoxia secondary to COPD exacerbation with possible left lower lobe pneumonia?83-year-old female presented to an outside hospital with increasing shortness of breath and weakness. She was found to have a left lower lobe infiltrate on CT scan that prompted antibiotics. She was also found to be hypoxic 87% on room air. She is supposed to be wearing 1 L of oxygen at night when she sleeps. She was also found to have a slight increase in troponin which is related to her hypoxia she was denying any chest pain and did not have any EKG changes at the outside hospital. Today she was feeling much better after being started on steroids and antibiotics, she was 92 to 94% on room air while at rest and required 3 L with ambulation. COVID was negative and CTA at the outside hospital was negative for PE. I discussed with her and her daughter the plan for possible discharge and expressed understanding the risk benefits of going home and would like to go home today. Will continue with p.o. prednisone 40 mg daily for 7 days and will continue with Augmentin twice daily for 7 days as well. 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 This was discussed with family at bedside. 2. History of A-fib status post cardioversion, history of TIA, chronic diastolic CHF, hypothyroidism, GERD, essential hypertension, hyperlipidemia are all chronic medical conditions which complicate her care. Her home medications were continued where appropriate Physical Exam Narrative General: Alert, Oriented x3, Cooperative, No apparent distress HEENT: Atraumatic, PERRLA, EOMI, Normocephalic Oral: Moist Mucosa Neck: Supple, No JVD Lungs: Diminished, Normal air movement, No rhonchi, scattered wheeze, No rales Cardiovascular: Regular rate, irregular rhythm, Normal S1, Normal S2, No murmurs Abdomen: Soft, Non Tender, Non-Distended, No Hepato-splenomegaly Extremities: No edema, Capillary Refill Less than 3 Seconds Skin: No rashes, No breakdown Musculoskeletal: No Tenderness to Palpation of Joints or Extremities Neurological: No focal neurological deficits, Motor Exam 5/5 strength throughout, Sensory exam intact to light touch and pain Psych/Mental Status: Normal Affect, Appropriate Weight / BMI Weight Weight: 200 lb 2.876 oz Body Mass Index (BMI) 31.3 ABG / Lab / Microbiology Data 05/01/24 05:46 05/01/24 05:46 Laboratory: Laboratory Results - last 24 hr 05/01/24 05:46: WBC 12.0 H, RBC 3.88 L, Hgb 11.7 L, Hct 35.8 L, MCV 92.3, MCH 30.2, MCHC 32.7, RDW Std Deviation 49.0 H, RDW Coeff of Crystal 14.5, Plt Count 196, MPV 10.7, Immature Gran % (Auto) 0.400, Neut % (Auto) 93.0 H, Lymph % (Auto) 3.5 L, Hendricks % (Auto) 2.9, Eos % (Auto) 0.0, Baso % (Auto) 0.2, Absolute Neuts (auto) 11.2 H, Absolute Lymphs (auto) 0.42 L, Nucleated RBC % 0, Sodium 133 L, Potassium 4.2, Chloride 100, Carbon Dioxide 28.0, Anion Gap 5, BUN 21 H, Creatinine 0.95, Estim Creat Clear Calc 50.09, Est GFR (MDRD) Af Amer 72, Est GFR (MDRD) Non-Af 60, BUN/Creatinine Ratio 22.2 H, Glucose 178 H, Calcium 10.1, TSH 0.50 Microbiology: Microbiology 04/30/24 20:59 Mucosa - Nasopharyngeal Respiratory Panel (PCR) - Final D/C Instructions Discharge Diet: Low fat / Low cholesterol Call your doctor if you observe: Fever of 101 or Higher, Shortness of breath, Dizziness, Fainting spells, Swelling in the ankles, Chest pain and Increased palpitations (irregular heartbeat) Meaningful Use Info Meaningful Use Meaningful Use Diagnoses (Choose all that apply): None applicable Ischemic Stroke Statin Dosing Therapy Reference: STATIN DOSE THERAPY REFERENCE: * Patients > 75 years receive moderate or high dose statin therapy. * Patients 75 years or YOUNGER should receive HIGH intensity statin dose unless contraindicated. You will be required to document reason for non-treatment if statin daily dose does not meet guidelines. HIGH DOSE STATIN THERAPY DAILY Atorvastatin > than or = to 40 mg Rosuvastatin > than or = to 20 mg Amlodipine + Atorvastatin > than or = to 2.5/40 mg Ezetimibe + Simvastatin 10/80 mg Simvastatin 80mg Discharge Plan Admission Admit Date/Time: 04/30/24 18:07 Attending Provider: Wyatt Ruano Primary Care Provider: Martine Chappell Consulting Providers: Felipa Tenorio Discharge Orders/Prescriptions Prescriptions: New prednisone 20 mg Tablet 40 mg PO DAILY@0800 7 Days Qty: 14 0RF amoxicillin-pot clavulanate 875-125 mg Tablet 1 tab PO BIDCM 7 Days Qty: 14 0RF Continued levothyroxine 50 mcg tablet 50 mcg PO DAILY 90 Days Qty: 90 Patient Comments: apixaban 5 mg tablet 5 mg PO BID gabapentin 100 mg capsule 100 mg PO TID PRN (Reason: arthritis) Patient Comments: two in AM two PM and three HS Trelegy Ellipta 100-62.5-25 mcg blister with device 1 inh inhalation DAILY trazodone 50 mg tablet 50 mg PO DAILY sotalol 80 mg tablet 40 mg PO BID Qty: 180 3RF acetaminophen 650 MG tablet extended release 650 mg PO DAILY PRN PRN (Reason: arthritis pain) simvastatin 40 MG tablet 40 mg PO QHS esomeprazole magnesium 40 mg capsule,delayed release(DR/EC) 40 mg PO DAILY Referrals / Follow Up: Martine Chappell MD [Primary Care Provider] - Within 1 Week Disposition Disposition (needs filled in before D/C Order can be placed): Home, Self Care Charges/Coding Visit Charges Inpatient E&M: 72130 Disch Hosp >30min
== END 2024-05-01 11:21 | disposition home or self-care (01) ==
PROVIDERS: Admitting Provider Internal Medicine; PCP Family Medicine; Referring Provider Internal Medicine; Visit Provider Family Medicine
DX: J44.1 Chronic obstructive pulmonary disease with (acute) exacerbation (principal); I11.0 Hypertensive heart disease with heart failure; I50.32 Chronic diastolic (congestive) heart failure; I48.0 Paroxysmal atrial fibrillation; Z79.51 Long term (current) use of inhaled steroids; Z79.01 Long term (current) use of anticoagulants; E78.2 Mixed hyperlipidemia; Z87.891 Personal history of nicotine dependence; Z11.52 Encounter for screening for COVID-19; E03.9 Hypothyroidism, unspecified; Z79.899 Other long term (current) drug therapy; Z79.890 Hormone replacement therapy; R53.1 Weakness; Z86.73 Personal history of transient ischemic attack (TIA), and cerebral infarction without residual deficits; K21.9 Gastro-esophageal reflux disease without esophagitis
CPT/HCPCS: 36415; 80048; 84443; 85025; 87633; 94640; 94668; 96374; 96376; 99221; 99252; A4216; G0378; G0379; G0463

== ENCOUNTER → 2024-07-25 | Outpatient (CLI) | payer MEDICARE, OTHER, SELFPAY ==
--- NOTE | 2024-07-25 12:22 | BI_ITS ---
MAMMOGRAPHY - BILATERAL SCREENING REASON FOR EXAM: Female, 83 years old. Routine annual screening examination. PERTINENT HISTORY: Non-contributory. TECHNIQUE: Digital bilateral breast magdalena (3D mammographic acquisition) in the CC and MLO projections. 2-D mediolateral oblique (MLO) and craniocaudad (CC) views of both breasts were obtained. CAD: Full Field Digital Mammography with Computer Added Detection was performed. COMPARISON: Comparison is made with prior study January 28, 2019 and January 19, 2016. FINDINGS: Breast Composition: There are scattered areas of fibroglandular density. There are no dominant masses or suspicious calcifications. Stable 3 mm well-defined nodule in the deep slightly upper medial aspect of the left breast. This was demonstrated to be a small cyst on prior sonogram. Stable asymmetry of breast tissue with more breast tissue is seen in the retroareolar region of the right breast as compared to the left side. No other significant abnormalities are identified. There has been no significant change since the prior study. BI/SCRN MAMM (CAD)W/MAGDALENA BILAT IMPRESSION: Stable bilateral screening mammogram. Yearly follow-up mammogram recommended. (A) ASSESSMENT CATEGORY: BIRADS Category 2: Benign. A letter regarding these results will be sent to the patient by the facility within 30 days. Approximately 10% of breast cancers are not detected by mammography. A normal mammogram should not delay biopsy of a clinically suspicious abnormality. [id number] Electronically Signed: Derrick Burnette MD at 13:16 EDT ,
== END | disposition home or self-care (01) ==
LOC: OPBI 12:21
PROVIDERS: PCP Family Medicine; Referring Provider Family Medicine; Visit Provider Family Medicine
DX: Z12.31 Encounter for screening mammogram for malignant neoplasm of breast (principal)
CPT/HCPCS: 77063; 77067

== ENCOUNTER → 2024-08-05 | Outpatient (CLI) | payer MEDICARE, OTHER, SELFPAY ==
[2024-08-05 17:52] LABS: Absolute Lymphocyte Count 1.21 X10^3/uL (0.83-4.51); Absolute Neutrophil Count 4.7 X10^3/uL (2.0-7.7); Basophil# 0.05 X10^3/uL; Basophil% 0.8 % (0-1); Eosinophil# 0.22 X10^3/uL; Eosinophils% 3.3 % (0-5); Hematocrit 39.4 % (37-47); Hemoglobin 12.4 g/dL (12.0-15.0); Lymphocyte # 1.21 X10^3/ul (0.83-4.51); Lymphocyte % 18.3 % (19-41); Mean Corp Hgb Conc 31.5 g/dL (32-36); Mean Corpuscular Hgb 30.1 pg (27.0-32.0); Mean Corpuscular Volume 95.6 fL (81-99); Mean Platelet Vol. 10.7 fl (6.2-12.0); Monocyte# 0.47 X10^3/uL; Monocyte% 7.1 % (0-10); NRBC Flagged by Analyzer 0 % (0-5); Neutrophil # 4.66 X10^3/uL (2.7-7.7); Neutrophil % 70.2 % (47-70); Platelet Count 201 K/mm3 (150-450); RBC Distribution Width CV 14.3 % (11.6-14.6); RBC Distribution Width SD 49.7 fl (35.1-43.9); Red Blood Count 4.12 M/mm3 (4.2-5.4); White Blood Count 6.6 K/mm3 (4.4-11.0)
[2024-08-05 18:58] LABS: BNP,B-Type NATRIURETIC PEPTIDE 51.3 pg/mL (0-100)
[2024-08-05 19:18] LABS: ALB/GLOB Ratio 1.1 RATIO (0.9-2.4); AST(SGOT) 22 U/L (15-37); Alanine Aminotransfer ALT/SGPT 30 U/L (13-56); Albumin, Serum 3.5 g/dL (3.2-5.0); Alkaline Phosphatase 57 U/L (45-117); Anion Gap 5 (5-15); BUN 16 mg/dL (7-18); BUN/Creat Ratio 17.7 RATIO (10-20); Calcium,Total 10.8 mg/dL (8.5-10.1); Chloride 104 mmol/L (98-107); EST Glomerular Filtration Rate 63 mL/min (>60); Est Glom Filt Rate - Afr Amer 76 mL/min (>60); Globulin 3.1 g/dL (2.2-4.2); Glucose 113 mg/dL (74-106); Potassium 4.2 mmol/L (3.5-5.1); Protein, Total 6.6 g/dL (6.4-8.2); Sodium Level 137 mmol/L (136-145)
== END | disposition home or self-care (01) ==
LOC: MFPLAB 16:30
PROVIDERS: PCP Family Medicine; Visit Provider Family Medicine
DX: R60.0 Localized edema (principal)
CPT/HCPCS: 36415; 80053; 83880; 84443; 85025

== ENCOUNTER 2024-09-28 16:50 | Inpatient (IN) | payer MEDICARE, OTHER, SELFPAY ==
--- NOTE | 2024-09-28 14:08 | HP.PCM.HOS_ITS ---
HPI - General General Date of Admission: 09/28/24 Date of Service: 09/28/24 Chief Complaint: Shortness of breath and cough HPI Narrative MARTITA BENNETT, is a 83 F who initially presented to [place] ED with 3-day history of worsening shortness of breath and cough. Patient has significant past medical history of HFpEF and COPD. She follows here with [facility], last office visit was in July. She wears home oxygen only at night. She was noted to be mildly hypoxic on arrival to their ED and was requiring 2 L nasal cannula to maintain appropriate oxygen saturations. She otherwise was afebrile and hemodynamically stable. CBC and BMP were unremarkable. NT proBNP was elevated at 1049. Flu/COVID/RSV was negative. Chest x-ray showed mild bilateral pulm emphysema, increased bronchovascular markings in both lower lung suggestive of bronchitis, no pleural effusions, no consolidations or masses and a large hiatal hernia. Was suspected patient's symptoms were primarily due to a CHF exacerbation. She was given a dose of IV Lasix 20 mg and was also given a dose of IV Solu-Medrol. I spoke to the ED physician there over the phone and accepted the patient for admission here. I saw the patient at bedside on the floor shortly after she arrived here. Patient was sitting up comfortably in bed and in no acute distress. She is breathing comfortably on 1 L nasal cannula with oxygen saturations in the low 90s. She reported having significant urine output after the dose of IV Lasix that was given at the outside ED. Denies any previous history of heart failure exacerbations. She does note that she has developed worsening lower extremity swelling over the past few weeks. She has had some lower extremity swelling in the past but not to this extent. She is also been coughing up clearish sputum for the past 2 to 3 days. She does report being unable to lay flat without shortness of breath. She denies any recent episodes of chest pain. Denies any recent illnesses. No other acute concerns at this time. [facility] Medical History Pneumonia Cataract Trigger finger COPD with exacerbation Blurry vision, right eye COPD (chronic obstructive pulmonary disease) Hyponatremia Gastroenteritis Amaurosis fugax of right eye Vaso vagal episode Vertigo Tachy-chikis syndrome Essential (primary) hypertension Mixed hyperlipidemia TIA (transient ischemic attack) (03/12/24) IBS (irritable bowel syndrome) Vasovagal syncope Paroxysmal atrial fibrillation Home Medications ?Medication ?Instructions ?Recorded ?Last Taken ?Type levothyroxine 50 mcg tablet 50 mcg PO DAILY thyroid 90 days 01/15/18 09/28/24 History #90 tabs acetaminophen 650 mg 650 mg PO DAILY PRN PRN arthritis 12/03/19 12/02/19 History tablet,extended release pain esomeprazole magnesium 40 mg 40 mg PO QHS GERD 05/12/22 Unknown History capsule,delayed release apixaban 5 mg tablet 5 mg PO BID blood thinner 08/30/22 09/28/24 History gabapentin 100 mg capsule 100 mg PO TID PRN arthritis 08/30/22 Unknown History sotalol 80 mg tablet 40 mg (1/2 x 80 mg) PO BID heart 01/25/24 09/28/24 Rx #180 tabs albuterol sulfate 2.5 mg/3 mL 2.5 mg inhalation TID SOB 05/10/24 Unknown History (0.083 %) solution for nebulization budesonide 0.25 mg/2 mL suspension 0.25 mg inhalation TID SOB 05/10/24 Unknown History for nebulization cholecalciferol (vitamin D3) 25 25 mcg PO DAILY Supplement 05/10/24 09/28/24 History mcg (1,000 unit) tablet multivitamin 1 tab PO DAILY Supplement 05/10/24 09/28/24 History trazodone 100 mg tablet 100 mg PO QHS Sleep 05/10/24 Unknown History gabapentin 300 mg capsule 300 mg PO QHS Arthritis pain 09/28/24 Unknown History simvastatin 40 mg tablet 40 mg PO QHS cholesterol 09/28/24 Unknown History Allergy/AdvReac Type Severity Reaction Status Date / Time ceftriaxone (From Rocephin) Allergy Hives Verified 09/28/24 17:01 doxycycline (From Vibramycin) Allergy Hives Verified 09/28/24 17:01 oxycodone (From OxyContin) Allergy hallucinati Verified 09/28/24 17:01 ons Family History Mother pacemaker Kidney disease Thyroid disorder Daughter Arthritis Asthma Diabetes Heart disease Thyroid disorder Daughter CAD (coronary artery disease) Diabetes Hypertension Sister CVA (cerebral vascular accident) Surgical History History of hip replacement History of hernia surgery Hx Sigmoidectomy History of bilateral knee replacement History of appendectomy Social History Smoking Status: Former smoker how long ago did patient quit smokin years ago alcohol intake: never substance use type: does not use caffeine: No what type of physical activity do you participate in: bicycling frequency: daily duration: 15-30 minutes/day seatbelt use: always do you feel safe at home: Yes ROS Constitutional Constitutional: Denies chills, fatigue, fever(s) or weakness Cardiovascular Cardiovascular: Reports dyspnea on exertion and edema; Denies chest pain, lightheadedness, orthopnea, palpitations or rapid heart rate Respiratory/Chest Respiratory/Chest: Reports productive cough; Denies shortness of breath at rest or wheezing Gastrointestinal Gastrointestinal: Denies abdominal pain Genitourinary Genitourinary: Denies dysuria Musculoskeletal Musculoskeletal: Denies arthralgias or myalgias Neurologic Neurologic: Denies dizziness, focal weakness or headache(s) Physical Exam Const alert, oriented x3 and no apparent distress Constitutional Narrative: Pleasant elderly female, class I obesity, sitting up comfortably in bed, conversing normally, in no acute distress. General Appearance: cooperative and comfortable HEENT normocephalic, head/scalp atraumatic, hearing grossly normal bilaterally, nasal mucous membranes and turbinates normal and moist oral mucous membranes Eyes PERRL, EOMs intact bilaterally and conjunctivae normal Neck full ROM Chest inspection of chest normal Resp normal respiratory effort and no use of accessory muscles Resp Narrative: Breathing comfortably on 1 L nasal cannula at rest. Mild crackles noted in bilateral lung bases, otherwise good air movement throughout. No wheezing noted. Cardio regular rate, regular rhythm, no murmurs and peripheral pulses 2+ throughout GI normal to inspection, nondistended, normoactive bowel sounds, soft to palpation, non-tender and non-distended Back/Spine normal ROM Extremity Extremity Narrative: +2-3 lower extremity pitting edema up to the knees. Skin no rashes or lesions noted Psych mental status grossly normal Assessment & Plan Assessment/Plan (1) Acute heart failure with preserved ejection fraction (HFpEF): PLAN: Plan Patient is an 83-year-old female who initially presented to [place] ED on 09/28/2024 with worsening cough and shortness of breath. Suspected to have a mild CHF exacerbation with hypoxia. Was then transferred over to [facility] for further management. 1. Acute HFpEF exacerbation with hypoxia ? Admit under inpatient status to PCU. Last echo in 04/2023 showed EF 60%, stage II diastolic dysfunction, mild pulmonary hypertension. Unclear etiology for this heart failure exacerbation. Repeat echo ordered. Will treat with IV Lasix 20 mg twice daily for now as patient had significant urine output with that dose and is not on home diuretics. Monitor daily BMP and urine output. Wean supplemental oxygen as able. 2. COPD with emphysema on supplemental oxygen at night ? Symptoms on admission seem more consistent with a heart failure exacerbation rather than a COPD exacerbation or upper respiratory illness. Will hold on treating with steroids or antibiotics. Continue home inhalers. 3. Paroxysmal A-fib, hypertension, hyperlipidemia, history of TIA ? Follows with [facility]. In normal sinus rhythm on admit. Continue home Eliquis, sotalol and statin. Chronic medical conditions: ? Class I obesity: BMI 32 on admit. Complicates hospital course, care and prognosis. ? Hypothyroidism: Last TSH in early August was normal. Continue home Synt hroid. ? GERD: Continue home PPI. ? Neuropathy: Continue home gabapentin. DVT prophylaxis: Not indicated, on Eliquis CODE STATUS: DNR CCA, DNI Expected disposition: Home, 2 to 3 days Total clinical time spent by myself addressing the patient's medical issues, reviewing all the data, and collaborating with patient's care team: 55 minutes.
[2024-09-28 16:55] VITALS: BP 165/92; PULSE 79; RESP 22; TEMP 36.6; O2SAT 97; BMI 32.1
[2024-09-28 17:00] VITALS: O2SAT 97
--- NOTE | 2024-09-28 17:21 | ECHOD_ITS ---
Reason For Study: CHF Procedure This was a 2D Doppler, Color Flow transthoracic echocardiogram. Exam performed portable in patient room. Left Ventricle Normal LV size. Left ventricular systolic function is normal. The left ventricular ejection fraction is 65 %. No regional wall motion abnormalities noted. Right Ventricle Normal RV size. Normal systolic function. Atria Normal left atrium. Normal right atrium. Mitral Valve Normal mitral valve. Mild-Moderate (1-2+) eccentric mitral valve insufficiency. Tricuspid Valve Normal tricuspid valve. Aortic Valve Trisinus/trileaflet aortic valve. Mild focal aortic valve calcification. Pulmonic Valve Normal pulmonic valve. Great Vessels Normal aortic root. The pulmonary artery is normal size. Normal inferior vena cava. Pericardium/Pleural No pericardial effusion. MMode/2D Measurements & Calculations LVIDd: 4.0 cm IVSd: 0.92 cm LVOT diam: 1.9 cm LVIDs: 3.4 cm LVPWd: 1.1 cm LVOT area: 2.7 cm2 RVDd: 3.7 cm FS: 15.4 % asc Aorta Diam: 3.1 cm LAV(MOD-bp): 56.3 ml LVAd ap4: 26.0 cm2 LAV(MOD-bp) Indexed: 27.5 ml/m2 LVLd ap4: 7.5 cm LAV(MOD-sp2): 69.8 ml EDV(MOD-sp4): 74.2 ml LAV(MOD-sp4): 48.3 ml EDV(sp4-el): 76.2 ml LVAs ap4: 16.0 cm2 LVLs ap4: 6.5 cm ESV(MOD-sp4): 33.2 ml ESV(sp4-el): 33.5 ml EF(MOD-sp4): 55.2 % EF(sp4-el): 56.0 % LVAd ap2: 28.0 cm2 SV(MOD-sp4): 41.0 ml SV(MOD-sp2): 47.1 ml LVLd ap2: 7.7 cm SI(MOD-sp4): 20.0 ml/m2 SI(MOD-sp2): 23.0 ml/m2 EDV(MOD-sp2): 86.2 ml EDV(sp2-el): 86.9 ml LVAs ap2: 17.3 cm2 LVLs ap2: 6.6 cm ESV(MOD-sp2): 39.0 ml ESV(sp2-el): 38.5 ml EF(MOD-sp2): 54.7 % SV(sp4-el): 42.7 ml LA dimension(2D): 3.5 cm LA A4 area: 17.7 cm2 RA A4 area: 14.9 cm2 TAPSE: 1.9 cm Time Measurements MV dec time: 0.20 sec Doppler Measurements & Calculations MV E max diego: 80.7 cm/sec Lat Peak E' Diego: 7.4 cm/sec Med Peak E' Diego: 5.9 cm/sec MV A max diego: 65.2 cm/sec E/E' lat: 10.8 E/E' med: 13.7 MV E/A: 1.2 Ao V2 max: 152.2 cm/sec LV V1 max: 121.1 cm/sec MV dec slope: 397.2 cm/sec2 Ao max P.3 mmHg LV V1 max P.9 mmHg Ao V2 mean: 103.5 cm/sec LV V1 mean P.3 mmHg Ao mean P.0 mmHg LV V1 mean: 85.0 cm/sec Ao V2 VTI: 36.1 cm LV V1 VTI: 27.9 cm AV (velocity ratio): 0.77 NORMA(I,D): 2.1 cm2 NORMA(V,D): 2.1 cm2 SV(LVOT): 75.0 ml PA V2 max: 85.9 cm/sec TR max diego: 256.0 cm/sec TR max P.2 mmHg ECHO/Echo Complete Interpretation Summary Normal LV size. Left ventricular systolic function is normal. The left ventricular ejection fraction is 65 %. Structurally normal valves. Ordering Physician: Joselito Fofana Referring Physician: Martine Chappell M.D. Performed By: Yesenia Burns RDCS
[2024-09-28] MEDS: Furosemide 20 MG/2 ML VIAL IV (17:48)
[2024-09-28] MEDS: 0.9% Saline Lock 10 ML Syringe IV (17:48)
[2024-09-28] MEDS: Albuterol 2.5 MG/3 ML VIAL.NEB. INHALATION (20:21)
[2024-09-28] MEDS: Budesonide Respules 0.5 MG/2 ML AMPUL.NEB. INHALATION (20:22)
[2024-09-28 20:26] VITALS: PULSE 79; RESP 16; O2SAT 92
[2024-09-28 20:33] VITALS: BP 128/78; PULSE 74; RESP 18; TEMP 36.7; O2SAT 93
[2024-09-28 20:35] VITALS: O2SAT 93
[2024-09-28] MEDS: APIXABAN 5 MG TABLET PO (20:43)
[2024-09-28] MEDS: Gabapentin 300 MG Capsule PO (20:43)
[2024-09-28] MEDS: Atorvastatin Calcium 20 MG Tablet PO (20:44)
[2024-09-28] MEDS: Sotalol Hydrochloride 80 MG Tablet 40 MG PO (20:44)
[2024-09-28] MEDS: traZODone 100 MG Tablet PO (20:47)
[2024-09-28] MEDS: Pantoprazole Sodium 40 MG Tablet PO (21:01)
[2024-09-29] VITALS (10 sets, daily range): BP systolic 109–143; BP diastolic 64–82; PULSE 58–77; RESP 18–19; TEMP 36.2–36.5; O2SAT 91–94; BMI 32.7
[2024-09-29] MEDS: Acetaminophen 325 MG Tablet 650 MG PO ×2 (00:52→20:26)
[2024-09-29] MEDS: Levothyroxine 50 MCG Tablet PO (05:33)
[2024-09-29 06:34] LABS: Absolute Lymphocyte Count 0.68 X10^3/uL (0.83-4.51); Absolute Neutrophil Count 8.3 X10^3/uL (2.0-7.7); Basophil# 0.01 X10^3/uL; Basophil% 0.1 % (0-1); Hematocrit 38.4 % (37-47); Hemoglobin 12.4 g/dL (12.0-15.0); Lymphocyte # 0.68 X10^3/ul (0.83-4.51); Lymphocyte % 7.1 % (19-41); Mean Corp Hgb Conc 32.3 g/dL (32-36); Mean Corpuscular Hgb 29.4 pg (27.0-32.0); Mean Platelet Vol. 10.4 fl (6.2-12.0); Monocyte# 0.55 X10^3/uL; Monocyte% 5.7 % (0-10); NRBC Flagged by Analyzer 0 % (0-5); Neutrophil % 86.6 % (47-70); Platelet Count 235 K/mm3 (150-450); RBC Distribution Width CV 13.9 % (11.6-14.6); RBC Distribution Width SD 46.7 fl (35.1-43.9); Red Blood Count 4.22 M/mm3 (4.2-5.4); White Blood Count 9.6 K/mm3 (4.4-11.0)
[2024-09-29 07:08] LABS: Anion Gap 4 (5-15); BUN 19 mg/dL (7-18); BUN/Creat Ratio 22.9 RATIO (10-20); Calcium,Total 10.9 mg/dL (8.5-10.1); Chloride 102 mmol/L (98-107); Creatinine, Serum 0.83 mg/dL (0.55-1.02); EST Glomerular Filtration Rate 70 mL/min (>60); Est Glom Filt Rate - Afr Amer 84 mL/min (>60); Estimated Creatinine Clearance 58.58 ml/min; Glucose 146 mg/dL (74-106); Potassium 3.7 mmol/L (3.5-5.1); Sodium Level 137 mmol/L (136-145)
--- NOTE | 2024-09-29 07:11 | PN.HOSP_ITS ---
Reason for Visit Reason for Visit: Diagnoses Acute diastolic (congestive) heart failure (09/28/24) Subjective Subjective Patient with no acute do not events overnight per self and per nursing report. She notes she is breathing with much greater ease and is currently transition to room air but only at rest and still remains in the low 90s. She does feel less swollen she states but does states she feels significantly weak and fatigued. Patient denies fevers, chills, nausea, emesis, abdominal pain, chest pain. Objective Data Objective Data Vital Signs: Vital Signs Temp Pulse Resp BP Pulse Ox O2 Del Method O2 Flow Rate 97.6 F L 67 18 143/82 H 93 Room Air 1 09/29/24 05:26 09/29/24 05:26 09/29/24 05:26 09/29/24 05:26 09/29/24 05:32 09/29/24 05:32 09/29/24 05:26 Oxygen Flow Rate (L/min) 1 Oxygen Delivery Method Room Air Weight: 208 lb 15.971 oz Body Mass Index (BMI) 32.7 Intake & Output: Intake and Output for Last 24 Hours 09/27/24 09/28/24 09/29/24 23:59 23:59 23:59 Intake Total 240 / 240 Output Total 1100 / 1100 200 / 200 Balance -860 / -860 -200 / -200 Lab / Micro Data 09/29/24 05:53 09/29/24 05:53 Labs: Laboratory Results - last 24 hr 09/29/24 05:53: WBC 9.6, RBC 4.22, Hgb 12.4, Hct 38.4, MCV 91.0, MCH 29.4, MCHC 32.3, RDW Std Deviation 46.7 H, RDW Coeff of Crystal 13.9, Plt Count 235, MPV 10.4, Immature Gran % (Auto) 0.500, Neut % (Auto) 86.6 H, Lymph % (Auto) 7.1 L, [place] % (Auto) 5.7, Eos % (Auto) 0.0, Baso % (Auto) 0.1, Absolute Neuts (auto) 8.3 H, A bsolute Lymphs (auto) 0.68 L, Nucleated RBC % 0, Sodium 137, Potassium 3.7, Chloride 102, Carbon Dioxide 31.0, Anion Gap 4 L, BUN 19 H, Creatinine 0.83, Estim Creat Clear Calc 58.58, Est GFR (MDRD) Af Amer 84, Est GFR (MDRD) Non-Af 70, BUN/Creatinine Ratio 22.9 H, Glucose 146 H, Calcium 10.9 H Physical Exam Narrative Physical Examination: General: Awake, alert, oriented x 3 and cooperative, seated upright in PT bed, fatigued but notes feeling improved since initial ED presentation at outside facility to [facility] transfer. Skin: Normal color, normal turgor, no icterus, no cyanosis except for occasional stage ecchymoses HEENT: AT/NC, EOMI, PERRLA, MMM. Lungs: Diminished, greater bases, appropriate effort, no evidence of any distress, mild rales at the bases but minimal, no rhonchi or wheezing. Heart: Regular rate and rhythm; no gallop, rub audible. Abdomen: Soft, obese, NTTP, ND, normal BS. Extremities: No cyanosis, no clubbing, patient notes improved edema, presently pedal to knee 2+ but she states it was significantly worse prior. Neurological: Patient awake, alert, oriented as noted, cognitive function intact; pupils equally reactive to light and accommodation, cranial nerves gross normal, moving all 4 extremities, no focal deficits, strength improving, mildly to moderately globally decreased. Psychiatric: Affect appears fatigued otherwise normal, no acute evidence of depressive or anxiety feelings. Assessment & Plan Assessment/Plan (1) Acute heart failure with preserved ejection fraction (HFpEF): PLAN: Plan The patient is an 83 y/o F w/ PMHx: COPD, HTN, HLD, Hx Tachy-chikis syndrome, Hx TIA, IBS, PAF, HFpEF, Obesity who presents to the [facility] ED on 09/28/2024 with worsening dyspnea and cough as well as weight gain and mild distal swelling of her lower extremities prompting eventual ED evaluation to be cautious. #1. Acute Hypoxia on Chronic (uses q HS only baseline) secondary to Acutely Decompensated HFpEF complicated by #2: Admitted to PCU, maintain on telemetry, outside facility [place] emergency room chest x-ray with emphysema with increased bronchovascular markings suggestive of possibly bronchitis but per patient symptoms seem more consistent with heart failure, maintained on telemetry monitoring, continued on IV Lasix 20 mg twice daily, continue to monitor weight and diuresis pattern, will plan to continue Lasix diuresis 09/29/2024 given not marked diuresis with presentation 09/28/2024 weight noted to be 205 pounds and most recent repeat 11/30/23 208 pounds. Magnesium 1.9, TSH 0.593, FLP with total cholesterol 173, triglycerides 87, LDL 82, VLDL 17, HDL 74. Not on JOLLY inhibitor/ARB. Rapid SARS COVID/influenza/RSV negative. #2. Chronic COPD with chronic hypoxic respiratory failure: Uses supplemental oxygen only nightly, complicates presentation, Will maintain on oxygen with wean as tolerated to room air, maintain on ATC budesonide therapy, PRN albuterol, HOB, IS parameters. #3. PAF: We will continue patient home sotalol and Eliquis therapy. #4. History of TIA: Will continue Eliquis, hypertensive regimen as noted with adjustments given acute presentation, statin therapy. #5. Chronic neuropathy: Will continue patient home gabapentin regimen. #6. Hypertension: Will continue IV Lasix as noted above as well as home sotalol regimen. #7. Hyperlipidemia: We will continue patient home statin therapy, FLP as noted above. #8. Hypothyroidism: We will continue patient home levothyroxine regimen, TSH 0.593 as noted. #9. GERD: We will continue patient home PPI. #10. DVT prophylaxis: Continue patient home Eliquis regimen. #11. CODE status: DNR-CCA, no intubation. Charges/Coding Visit Charges Inpatient E&M: 32732 Subs Hosp L2
[2024-09-29 08:00] LABS: Cholesterol 173 mg/dL (200); High Density Lipoprotein 74 mg/dL; Magnesium 1.9 mg/dL (1.6-2.6); Thyroid Stim Hormone (TSH) 0.593 uIU/mL (0.358-3.740); Triglycerides 87 mg/dL; Very Low Density Lipoprotein 17 mg/dL (5-40)
[2024-09-29] MEDS: APIXABAN 5 MG TABLET PO ×2 (08:00→20:27)
[2024-09-29] MEDS: Budesonide Respules 0.5 MG/2 ML AMPUL.NEB. INHALATION (08:00)
[2024-09-29] MEDS: Gabapentin 100 MG Capsule 200 MG PO ×2 (08:00→11:50)
[2024-09-29] MEDS: Furosemide 20 MG/2 ML VIAL IV ×2 (08:00→17:05)
[2024-09-29] MEDS: Sotalol Hydrochloride 80 MG Tablet 40 MG PO ×2 (08:00→20:29)
[2024-09-29] MEDS: Albuterol 2.5 MG/3 ML VIAL.NEB. INHALATION (08:00)
[2024-09-29] MEDS: 0.9% Saline Lock 10 ML Syringe IV ×2 (08:01→17:05)
[2024-09-29] MEDS: traZODone 100 MG Tablet PO (20:26)
[2024-09-29] MEDS: Atorvastatin Calcium 20 MG Tablet PO (20:27)
[2024-09-29] MEDS: Gabapentin 300 MG Capsule PO (20:27)
[2024-09-29] MEDS: Pantoprazole Sodium 40 MG Tablet PO (20:28)
[2024-09-29] MEDS: MELATONIN 3 MG TABLET PO (22:55)
[2024-09-30 05:04] VITALS: BP 103/58; PULSE 54; RESP 18; TEMP 36.4; O2SAT 95
[2024-09-30] MEDS: Levothyroxine 50 MCG Tablet PO (05:06)
[2024-09-30 05:29] VITALS: BMI 32.3
[2024-09-30 06:16] LABS: Absolute Neutrophil Count 5.1 X10^3/uL (2.0-7.7); Basophil# 0.05 X10^3/uL; Basophil% 0.7 % (0-1); Eosinophil# 0.18 X10^3/uL; Eosinophils% 2.4 % (0-5); Hematocrit 39.3 % (37-47); Hemoglobin 12.7 g/dL (12.0-15.0); Lymphocyte % 21.2 % (19-41); Mean Corp Hgb Conc 32.3 g/dL (32-36); Mean Corpuscular Volume 92.7 fL (81-99); Mean Platelet Vol. 10.6 fl (6.2-12.0); Monocyte# 0.61 X10^3/uL; Monocyte% 8.1 % (0-10); NRBC Flagged by Analyzer 0 % (0-5); Neutrophil # 5.07 X10^3/uL (2.7-7.7); Neutrophil % 67.1 % (47-70); Platelet Count 215 K/mm3 (150-450); RBC Distribution Width CV 14.2 % (11.6-14.6); RBC Distribution Width SD 48.1 fl (35.1-43.9); Red Blood Count 4.24 M/mm3 (4.2-5.4); White Blood Count 7.6 K/mm3 (4.4-11.0)
[2024-09-30 06:25] LABS: AST(SGOT) 20 U/L (15-37); Alanine Aminotransfer ALT/SGPT 23 U/L (13-56); Albumin, Serum 3.1 g/dL (3.2-5.0); Alkaline Phosphatase 55 U/L (45-117); Anion Gap 3 (5-15); BUN 30 mg/dL (7-18); BUN/Creat Ratio 24.2 RATIO (10-20); Calcium,Total 10.8 mg/dL (8.5-10.1); Chloride 100 mmol/L (98-107); Creatinine, Serum 1.24 mg/dL (0.55-1.02); EST Glomerular Filtration Rate 44 mL/min (>60); Est Glom Filt Rate - Afr Amer 53 mL/min (>60); Estimated Creatinine Clearance 38.96 ml/min; Globulin 3.1 g/dL (2.2-4.2); Glucose 99 mg/dL (74-106); Potassium 3.4 mmol/L (3.5-5.1); Protein, Total 6.2 g/dL (6.4-8.2); Sodium Level 136 mmol/L (136-145)
[2024-09-30] MEDS: Albuterol 2.5 MG/3 ML VIAL.NEB. INHALATION (06:51)
[2024-09-30] MEDS: Budesonide Respules 0.5 MG/2 ML AMPUL.NEB. INHALATION (06:51)
[2024-09-30 06:52] VITALS: O2SAT 96
[2024-09-30 11:00] VITALS: BP 108/59; PULSE 60; RESP 16; TEMP 36.3; O2SAT 94
[2024-09-30] MEDS: Sotalol Hydrochloride 80 MG Tablet 40 MG PO (11:16)
[2024-09-30] MEDS: Gabapentin 100 MG Capsule 200 MG PO ×2 (11:16→15:20)
[2024-09-30] MEDS: APIXABAN 5 MG TABLET PO (11:16)
[2024-09-30] MEDS: Potassium Chloride Oral Tablet 20 MEQ 40 MEQ PO (11:16)
--- NOTE | 2024-09-30 13:50 | CASEMGMT ---
LIYAH PACHECO Assessment: LIYAH PACHECO to room to meet with pt for initial transition planning/care coordination assessment. LIYAH PACHECO introduced self and role at [facility], pt voices understanding and consents to assessment. Pt is A/O and answers all questions appropriately at this time. Daughter, Breann, @ bedside and pt agreeable to her being present during assessment. Pt sitting up in bed on RA in no distress. Care providers, pharmacy, and demographics verified/updated. 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 Mitzi Gonsalez, dtr. Breann, dtr. Mitzi, dianer Living Arrangements: Dtr, Mitzi, lives w/pt in a single story house with 3 steps to enter. Pt reports she is I in ADL's and denies concerns at home. Pt cooks. Mitzi helps w/cleaning, laundry, groceries. Transportation: Pt states she no longer drives. Her dtr's provide transportation. DME: Pt has grab bars, shower chair, FWW, rollator, nebulizer, pulse ox, and wears O2 @ HS @ 1 L/M from [facility]. She has concentrator and portability. She used to wear O2 continuously, but states has not needed it for 3 or 4 months. Dtr, Breann, states she can go get the portable O2 tank, if needed, for pt to go home on. Pt also has a transfer bench and cane available, but does not use them. HHC/SNF: Pt has had [facility] HHC in the past and been to Rehab at [facility]. Pt wishes to discharge home w/family support. She denies need for HHC, including nursing or therapy, and denies need for OP therapy. Pt states no further concerns/needs. Plan: Home. Follow for any increase in home O2 needs. Michael GORDON RN, CM
[2024-09-30 15:17] VITALS: O2SAT 87; O2SAT 91; O2SAT 95
[2024-09-30 15:18] VITALS: BP 95/68; PULSE 73; RESP 16; TEMP 36.5; O2SAT 92
--- NOTE | 2024-09-30 16:43 | DCINST_ITS ---
Discharge Instructions Diet Discharge Diet: 4000 mg Sodium Diet DC O2, CPAP, BIPAP needs RN Home O2 Qualification: Home O2 Qualification: Is the patient on home oxygen Yes 09/30/24 15:17 Home O2 Qualification: AT REST 1-Pulse Ox at rest 91 09/30/24 15:17 1- Oxygen flow rate at rest 0 09/30/24 15:17 Home O2 Qualification: WITH AMBULATION 1- Pulse Ox with ambulation 87 09/30/24 15:17 1- Oxygen Flow Rate with 0 09/30/24 15:17 ambulation 2- Pulse Ox with ambulation 95 09/30/24 15:17 2- Oxygen Flow Rate with 2 09/30/24 15:17 ambulation Home O2 Discharge instructions: Yes Type of respiratory needs?: Oxygen Oxygen frequency: With Ambulation Oxygen liters per minute during Ambulation: 2 Dressing / Incision Discharge Activity: No Restrictions Follow Up Care Test Results: Test results from this visit will be discussed in further detail at your follow- up appointment, if applicable. Discharge Plan Admission Admit Date/Time: 09/28/24 16:50 Primary Reason for Your Visit: Shortness of breath and cough Attending Provider: Joselito Fofana Primary Care Provider: Martine Chappell Consulting Providers: Joselito Fofana; Josseline Quezada Instructions Additional Instructions / Restrictions: Please start taking Lasix 20 mg every other day on discharge. Continue your other home medications as normal. Follow-up with the director of fundraising as needed. Discharge Orders/Prescriptions Prescriptions: New furosemide [Lasix] 20 mg tablet 20 mg PO QODAY 30 Days Qty: 15 0RF Continued levothyroxine 50 mcg tablet 50 mcg PO DAILY 90 Days Qty: 90 Patient Comments: apixaban 5 mg tablet 5 mg PO BID gabapentin 100 mg capsule 100 mg PO TID PRN (Reason: arthritis) Patient Comments: two in AM two PM and three HS sotalol 80 mg tablet 40 mg PO BID Qty: 180 3RF budesonide 0.25 mg/2 mL suspension for nebulization 0.25 mg inhalation TID albuterol sulfate 2.5 mg /3 mL (0.083 %) solution for nebulization 2.5 mg inhalation TID multivitamin Tablet 1 tab PO DAILY cholecalciferol (vitamin D3) 25 mcg (1,000 unit) tablet 25 mcg PO DAILY trazodone 100 mg tablet 100 mg PO QHS acetaminophen 650 MG tablet extended release 650 mg PO DAILY PRN PRN (Reason: arthritis pain) esomeprazole magnesium 40 mg capsule,delayed release(DR/EC) 40 mg PO QHS gabapentin 300 mg capsule 300 mg PO QHS simvastatin 40 mg tablet 40 mg PO QHS Referrals / Follow Up: Martine Chappell MD [Primary Care Provider] - Disposition Disposition (needs filled in before D/C Order can be placed): Home, Self Care
--- NOTE | 2024-09-30 16:46 | DS.PCM_ITS ---
Providers Date of Admission: 09/28/24 Date of Discharge: 09/30/24 Primary Care Physician: Dr. Martine Chappell MD Reason For Visit: CHF EXCERBATION Diagnosis Discharge Diagnosis (1) Acute heart failure with preserved ejection fraction (HFpEF): Status: Acute Code(s): I50.31 - Acute diastolic (congestive) heart failure Medications at Discharge Home Medications levothyroxine 50 mcg tablet 50 mcg PO DAILY thyroid 90 days #90 tabs 01/15/18 acetaminophen 650 mg tablet,extended release 650 mg PO DAILY PRN PRN arthritis pain 12/03/19 esomeprazole magnesium 40 mg capsule,delayed release 40 mg PO QHS GERD 05/12/22 apixaban 5 mg tablet 5 mg PO BID blood thinner 08/30/22 gabapentin 100 mg capsule 100 mg PO TID PRN arthritis 08/30/22 sotalol 80 mg tablet 40 mg (1/2 x 80 mg) PO BID heart #180 tabs 01/25/24 albuterol sulfate 2.5 mg/3 mL (0.083 %) solution for nebulization 2.5 mg inhalation TID SOB 05/10/24 budesonide 0.25 mg/2 mL suspension for nebulization 0.25 mg inhalation TID SOB 05/10/24 cholecalciferol (vitamin D3) 25 mcg (1,000 unit) tablet 25 mcg PO DAILY Supplement 05/10/24 multivitamin 1 tab PO DAILY Supplement 05/10/24 trazodone 100 mg tablet 100 mg PO QHS Sleep 05/10/24 gabapentin 300 mg capsule 300 mg PO QHS Arthritis pain 09/28/24 simvastatin 40 mg tablet 40 mg PO QHS cholesterol 09/28/24 furosemide 20 mg tablet (Lasix) 20 mg PO QODAY 30 days #15 tabs 09/30/24 Hospital Course Operations None Procedures EKG and Transthoracic echo Summary of Care Provided Minutes Spent on Discharge: 35 Hospital Course: Patient is an 83-year-old female who initially presented to [place] ED on 09/28/2024 with worsening cough and shortness of breath. Suspected to have a mild CHF exacerbation with hypoxia. Was then transferred over to [facility] for further management. Hospital course here as noted below. Patient was discharged home in stable condition on 09/30. 1. Acute HFpEF exacerbation with hypoxia ? Last echo in 04/2023 showed EF 60%, stage II diastolic dysfunction, mild pulmonary hypertension. Not on home diuretic, suspect patient had slowly worsening volume overload from pulmonary hypertension. Repeat echo on 09/30 showed EF 65%, no other changes from previous echo. Treated with IV Lasix 20 mg twice daily while inpatient with good urine output and patient had good contraction noted on BMP. Discharged on Lasix 20 mg every other day and recommended patient discuss with her barge engineer if she feels like she is getting too dry at home. Patient did require 2 L supplemental oxygen with exertion on discharge, new oxygen prescription signed. 2. COPD with emphysema on supplemental oxygen at night ? Symptoms on admission seem more consistent with a heart failure exacerbation rather than a COPD exacerbation or upper respiratory illness. Held on treating with steroids or antibiotics. Continue home inhalers. 3. Paroxysmal A-fib, hypertension, hyperlipidemia, history of TIA ? Follows with [place] [facility]ology. Remained in normal sinus rhythm during hospitalization. Continue home Eliquis, sotalol and statin. Chronic medical conditions: ? Class I obesity: BMI 32 on admit. Complicated hospital course, care and prognosis. ? Hypothyroidism: Last TSH in early August was normal. Continue home Synthroid. ? GERD: Continue home PPI. ? Neuropathy: Continue home gabapentin. Total clinical time spent by myself addressing the patient's medical issues, reviewing all the data, and collaborating with patient's care team: 35 minutes. Physical Exam Const alert, oriented x3 and no apparent distress Constitutional Narrative: Pleasant elderly female, class I obesity, sitting up comfortably in bed, conversing normally, in no acute distress. General Appearance: cooperative and comfortable HEENT normocephalic, head/scalp atraumatic, hearing grossly normal bilaterally, nasal mucous membranes and turbinates normal and moist oral mucous membranes Eyes PERRL, EOMs intact bilaterally and conjunctivae normal Neck full ROM Chest inspection of chest normal Resp normal respiratory effort and no use of accessory muscles Resp Narrative: Breathing comfortably on room air at rest. Good air movement throughout, no wheezing or crackles noted. Cardio regular rate, regular rhythm, no murmurs and peripheral pulses 2+ throughout GI normal to inspection, nondistended, normoactive bowel sounds, soft to palpation, non-tender and non-distended Back/Spine normal ROM Extremity Extremity Narrative: Trace lower extremity edema, improved from admission. Skin no rashes or lesions noted Psych mental status grossly normal Weight / BMI Weight Weight: 93.6 kg Body Mass Index (BMI) 32.3 ABG / Lab / Microbiology Data 09/30/24 05:14 09/30/24 05:14 Laboratory: Laboratory Results - last 24 hr 09/30/24 05:14: WBC 7.6, RBC 4.24, Hgb 12.7, Hct 39.3, MCV 92.7, MCH 30.0, MCHC 32.3, RDW Std Deviation 48.1 H, RDW Coeff of Crystal 14.2, Plt Count 215, MPV 10.6, Immature Gran % (Auto) 0.500, Neut % (Auto) 67.1, Lymph % (Auto) 21.2, [place] % (Auto) 8.1, Eos % (Auto) 2.4, Baso % (Auto) 0.7, Absolute Neuts (auto) 5.1, Absolute Lymphs (auto) 1.60, Nucleated RBC % 0, Sodium 136, Potassium 3.4 L, Chloride 100, Carbon Dioxide 33.0 H, Anion Gap 3 L, BUN 30 H, Creatinine 1.24 H, Estim Creat Clear Calc 38.96, Est GFR (MDRD) Af Amer 53 L, Est GFR (MDRD) Non-Af 44 L, BUN/Creatinine Ratio 24.2 H, Glucose 99, Calcium 10.8 H, Total Bilirubin 0.60, AST 20, ALT 23, Alkaline Phosphatase 55, Total Protein 6.2 L, Albumin 3.1 L, Globulin 3.1, Albumin/Globulin Ratio 1.0 Radiography Diagnostic Testing: Radiology Impression Echocardiogram 09/28/24 17:21 Interpretation Summary Normal LV size. Left ventricular systolic function is normal. The left ventricular ejection fraction is 65 %. Structurally normal valves. Ordering Physician: Joselito Fofana Referring Physician: Martine Chappell M.D. Performed By: Yesenia Burns RDCS D/C Instructions Discharge Diet: 4000 mg Sodium Diet DC O2, CPAP, BIPAP Needs RN Home O2 Qualification: Home O2 Qualification: Is the patient on home oxygen Yes 09/30/24 15:17 Home O2 Qualification: AT REST 1-Pulse Ox at rest 91 09/30/24 15:17 1- Oxygen flow rate at rest 0 09/30/24 15:17 Home O2 Qualification: WITH AMBULATION 1- Pulse Ox with ambulation 87 09/30/24 15:17 1- Oxygen Flow Rate with 0 09/30/24 15:17 ambulation 2- Pulse Ox with ambulation 95 09/30/24 15:17 2- Oxygen Flow Rate with 2 09/30/24 15:17 ambulation Home O2 Discharge instructions: Yes Type of respiratory needs?: Oxygen Oxygen frequency: With Ambulation Oxygen liters per minute during Ambulation: 2 DC home with Oxygen: Yes Home O2 MD Review: I have reviewed the oxygen testing, and the patient qualifies for home oxygen equipment and portability. The patient is mobile in the home and the community. Meaningful Use Info Meaningful Use Meaningful Use Diagnoses (Choose all that apply): CHF CHF JOLLY/ARB ordered at discharge?: No Reason JOLLY/ARB not ordered?: Normal EF Documented LVEF (%): 65 Ischemic Stroke Statin Dosing Therapy Reference: STATIN DOSE THERAPY REFERENCE: * Patients > 75 years receive moderate or high dose statin therapy. * Patients 75 years or YOUNGER should receive HIGH intensity statin dose unless contraindicated. You will be required to document reason for non-treatment if statin daily dose does not meet guidelines. HIGH DOSE STATIN THERAPY DAILY Atorvastatin > than or = to 40 mg Rosuvastatin > than or = to 20 mg Amlodipine + Atorvastatin > than or = to 2.5/40 mg Ezetimibe + Simvastatin 10/80 mg Simvastatin 80mg Discharge Plan Admission Admit Date/Time: 09/28/24 16:50 Primary Reason for Your Visit: Shortness of breath and cough Attending Provider: Joselito Fofana Primary Care Provider: Martine Chappell Consulting Providers: Joselito Fofana; Josseline Quezada Instructions Additional Instructions / Restrictions: Please start taking Lasix 20 mg every other day on discharge. Continue your other home medications as normal. Follow-up with the barge engineer as needed. Discharge Orders/Prescriptions Prescriptions: New furosemide [Lasix] 20 mg tablet 20 mg PO QODAY 30 Days Qty: 15 0RF Continued levothyroxine 50 mcg tablet 50 mcg PO DAILY 90 Days Qty: 90 Patient Comments: apixaban 5 mg tablet 5 mg PO BID gabapentin 100 mg capsule 100 mg PO TID PRN (Reason: arthritis) Patient Comments: two in AM two PM and three HS sotalol 80 mg tablet 40 mg PO BID Qty: 180 3RF budesonide 0.25 mg/2 mL suspension for nebulization 0.25 mg inhalation TID albuterol sulfate 2.5 mg /3 mL (0.083 %) solution for nebulization 2.5 mg inhalation TID multivitamin Tablet 1 tab PO DAILY cholecalciferol (vitamin D3) 25 mcg (1,000 unit) tablet 25 mcg PO DAILY trazodone 100 mg tablet 100 mg PO QHS acetaminophen 650 MG tablet extended release 650 mg PO DAILY PRN PRN (Reason: arthritis pain) esomeprazole magnesium 40 mg capsule,delayed release(DR/EC) 40 mg PO QHS gabapentin 300 mg capsule 300 mg PO QHS simvastatin 40 mg tablet 40 mg PO QHS Referrals / Follow Up: Martine Chappell MD [Primary Care Provider] - Disposition Disposition (needs filled in before D/C Order can be placed): Home, Self Care Charges/Coding Visit Charges Inpatient E&M: 53637 Disch Hosp >30min
--- NOTE | 2024-09-30 17:24 | CASEMGMT ---
Patient has order for discharge. Patient will need increase in home oxygen to 2lpm with ambulation. RN TARA received script and sent to [facility] via [employer]. RN CM updated patient. Patient denies further needs or concerns at discharge. Patient had no further questions or concerns.
== END 2024-09-30 18:05 | disposition home or self-care (01) | DRG 291 ==
PROVIDERS: Family Medicine; Admitting Provider Hospitalist; PCP Family Medicine; Visit Provider Hospitalist
DX: I11.0 Hypertensive heart disease with heart failure (principal); I50.31 Acute diastolic (congestive) heart failure; J96.11 Chronic respiratory failure with hypoxia; I27.20 Pulmonary hypertension, unspecified; Z66 Do not resuscitate; Z79.01 Long term (current) use of anticoagulants; E03.9 Hypothyroidism, unspecified; I48.0 Paroxysmal atrial fibrillation; G62.9 Polyneuropathy, unspecified; J43.9 Emphysema, unspecified; Z68.32 Body mass index [BMI] 32.0-32.9, adult; E78.2 Mixed hyperlipidemia; Z79.51 Long term (current) use of inhaled steroids; E66.811 Obesity, class 1; Z87.891 Personal history of nicotine dependence; Z82.3 Family history of stroke; Z86.73 Personal history of transient ischemic attack (TIA), and cerebral infarction without residual deficits
CPT/HCPCS: 36415; 80048; 80053; 80061; 83735; 84443; 85025; 93306; 94640; 94668; 97802; A4216; J1940

== ENCOUNTER → 2024-10-08 | Outpatient (CLI) | payer MEDICARE, OTHER, SELFPAY ==
[2024-10-08 12:51] LABS: Anion Gap 2 (5-15); BUN 15 mg/dL (7-18); BUN/Creat Ratio 15.2 RATIO (10-20); Calcium,Total 10.7 mg/dL (8.5-10.1); Chloride 104 mmol/L (98-107); Creatinine, Serum 0.99 mg/dL (0.55-1.02); EST Glomerular Filtration Rate 57 mL/min (>60); Est Glom Filt Rate - Afr Amer 69 mL/min (>60); Glucose 129 mg/dL (74-106); Potassium 4.4 mmol/L (3.5-5.1); Sodium Level 137 mmol/L (136-145)
== END | disposition home or self-care (01) ==
LOC: MFPLAB 10:16
PROVIDERS: PCP Family Medicine; Referring Provider Family Medicine; Visit Provider Family Medicine
DX: I50.30 Unspecified diastolic (congestive) heart failure (principal)
CPT/HCPCS: 36415; 80048

== ENCOUNTER → 2025-09-12 | Outpatient (CLI) | payer MEDICARE, OTHER, SELFPAY ==
--- NOTE | 2025-09-12 14:30 | BI_ITS ---
EXAM: SCRN MAMM (CAD)W/MAGDALENA BILAT DATE: 09/12/2025 CLINICAL HISTORY: F, Age 84 y/o , POST MENOPAUSE No family history. Left breast lump. TECHNIQUE: Procedure Code: Modality: MG Procedure: SCRN MAMM (CAD)W/MAGDALENA BILAT COMPARISON: Prior exam(s) dated July 25, 2024.. FINDINGS: TISSUE DENSITY: There are scattered areas of fibroglandular density. Bilateral Breast Mammographic Findings: No significant masses, calcifications or other abnormalities are identified. The palpable lump in the deep upper medial aspect of the left breast corresponds to a 3 mm well-defined nodule. This was demonstrated to be a small cyst on prior sonogram. Stable asymmetry of breast tissue were more breast tissue is seen in the retroareolar region of the right breast as compared to the left side. No suspicious masses, areas of developing architectural distortion, or suspicious calcifications. There has been no significant interval change. BI/SCRN MAMM (CAD)W/MAGDALENA BILAT IMPRESSION: Stable bilateral screening mammogram. OVERALL FINAL ASSESSMENT BI-RADS 2: BENIGN RECOMMENDATION: Routine annual follow-up in 1 Year Additional Recommendation none A letter with findings and recommendations will be mailed to the patient. Reading Location: [facility]
== END | disposition home or self-care (01) ==
LOC: OPBI 14:21
PROVIDERS: PCP Family Medicine
DX: Z12.31 Encounter for screening mammogram for malignant neoplasm of breast (principal)
CPT/HCPCS: 77063; 77067

== ENCOUNTER → 2025-09-18 | Outpatient (CLI) | payer MEDICARE, OTHER, SELFPAY | END | disposition home or self-care (01) | LOC: PSN 12:18 | PROVIDERS: PCP Family Medicine; Referring Provider Nurse Practitioner Family; Visit Provider Nurse Practitioner Family | DX: I48.0 Paroxysmal atrial fibrillation (principal) | CPT/HCPCS: 93225; 93226 ==